=== PATIENT | female | born 1970 | race Caucasian/White ===

== ENCOUNTER → 2016-08-15 | Outpatient (CLI) | payer OTHER ==
[~2016-08-15] MED LIST: ACET-1101 PO; AMBIEN PO; ASCO100061 PO; CARB200T3 PO; CETITAB27 PO; CYCL10TA6 PO; DIAZ10TA3 PO; FLUT0.0529 NAE; IPRA1AER2 INH; LORA1TAB13 PO; MAGN500T15 PO; METO-157 PO; MULTTAB58 PO; OMEGCAP2 PO; ONDA8TAB12 PO; PANT1TAB48 PO; PARO10TA PO; PARO40TA3 PO; PRAZ2CAP PO; QUET1TAB13 PO; SALI0.6510 NAE
[2016-08-15 12:29] LABS: BASO % 0.3 %; BASO ABS # 0.03 K/uL (0-0.2); COMPLETE YES; EOS % 1.7 %; HEMATOCRIT 40.3 % (37-47); IG% 0.2 %; LYMPH % 25.7 %; LYMPH ABS # 2.24 K/uL (1.2-3.4); MEAN CELL VOLUME 88.6 fL (80-100); MEAN CORPUSCULAR HEMOGLOBIN 30.5 pg (25-34); MEAN CORPUSCULAR HGB CONC 34.5 g/dl (32-36); MEAN PLATELET VOLUME 11.6 fL (7.4-10.4); MONO % 9.6 %; NEUT % 62.5 %; PLATELET COUNT 205 K/uL (130-400); RED BLOOD COUNT 4.55 M/uL (4.2-5.4); WHITE BLOOD COUNT 8.72 K/uL (4.8-10.8)
[2016-08-15 12:51] LABS: ALT/SGPT 33 U/L (12-78); AST/SGOT 24 U/L (15-37); BLOOD UREA NITROGEN 6 mg/dl (7-18); BUN/CREATININE RATIO 7.6 (10-20); CALCIUM 9.3 mg/dl (8.5-10.1); CARBON DIOXIDE 24 mmol/L (21-32); CHLORIDE 106 mmol/L (98-107); CREATININE 0.73 mg/dl (0.60-1.20); GLUCOSE 77 mg/dl (70-99); POTASSIUM 3.9 mmol/L (3.5-5.1); SODIUM 138 mmol/L (136-145)
[2016-08-15 13:02] LABS: ALKALINE PHOSPHATASE 103 U/L (45-117); THYROID STIMULATING HORMONE 0.766 uIu/ml (0.300-4.500)
== END | disposition home or self-care (01) ==
LOC: C.LABBFT 10:08
PROVIDERS: ATTEND Internal Medicine
DX: L29.9 Pruritus, unspecified (principal)

== ENCOUNTER 2017-08-22 17:56 | Emergency (ER) | payer OTHER ==
[~2017-08-22] VITALS: Ht 172.7 cm; Wt 116.8 kg
[~2017-08-22 17:56] MED LIST changes: +PANT1TAB3 PO; -PANT1TAB48 PO
[2017-08-22 17:58] VITALS: TEMP 36.9; Ht 172.7 cm; Wt 116.8 kg
--- NOTE | 2017-08-22 18:54 | EMERGENCY ROOM VISIT NOTE ---
ED Visit Note First contact with patient: 18:09 CHIEF COMPLAINT: Sore throat, head congestion / HISTORY OF PRESENT ILLNESS: This 46-year-old female presents to ER with chief complaint of head congestion and sore throat for the past 2 days. The patient denies any fever, cough or chest tightness. She does admit to some intermittent ear pain. She is taking Sudafed without any relief. The patient states she is concerned because her was recently diagnosed with sinusitis. REVIEW OF SYSTEMS: 6 system review was performed and was negative unless stated otherwise in history of present illness. PMH: The patient is healthy; see chronic problem list SOCIAL HISTORY: Patient lives at home. PHYSICAL EXAM: Vital Signs were reviewed: Reviewed Nurse's notes and agree.. GENERAL: 46-year-old female EMERGENCY COURSE: The patient was evaluated. Rapid strep was negative. Culture is pending. Appears in no acute distress. MENTAL STATUS: Alert, oriented, coherent. EARS: Canals clear. TMs good light reflex, no erythema or fluid level noted. NOSE: Nasal mucosa with moderate erythema engorgement. PHARYNX: Moderate erythema, no edema noted. No exudate noted. Airway is adequate. NECK: Supple, non-tender. No lymphadenopathy noted. LUNGS: Clear to auscultation without wheezes rales or rhonchi. CARDIAC: Regular rate and rhythm without murmur. SKIN: No rashes noted. EMERGENCY COURSE the patient was evaluated. Rapid strep was negative., Culture is pending. The patient was informed of the findings discharged home in stable condition. DIAGNOSIS: Acute pharyngitis, probably viral URI DISCHARGE INSTRUCTIONS & TREATMENT: Read the pharyngitis (sore throat) instruction sheet. Call for throat test result tomorrow. Ibuprofen for pain and fever every 6 hours. Recommend [id number]-eklgaxb steroid nasal spray such as Nasacort or Flomax. Take as directed on the box. If symptoms persist or worsen , follow-up with your family doctor. Problem List Medical Problems: (1) Ablation Status: Resolved (2) Anxiety Status: Chronic (3) Asthma Status: Chronic (4) Bipolar disorder Status: Chronic (5) Chronic back pain Status: Chronic (6) Fibromyalgia Status: Chronic (7) Migraines Status: Chronic (8) Peptic ulcer disease Status: Chronic (9) Pneumonia Status: Resolved (10) Tubal ligation Status: Resolved Current/Historical Medications Scheduled Ascorbic Acid (Ascorbic Acid), 1,000 MG PO DAILY Carbamazepine (Tegretol), 600 MG PO AMHS Cetirizine/Pseudoephedrine (Zyrtec-D Er 5MG/120MG), 1 TAB PO Q12H Lorazepam (Lorazepam), 1 MG PO QAM Lorazepam (Lorazepam), 2 MG PO HS Magnesium (Magnesium), 1,000 MG PO DAILY Metoclopramide Hcl (Reglan), 10 MG PO ACHS Multiple Vitamin (Multivitamin), 1 TABLET PO DAILY [place]-3 Fatty Acids (Fish Oil), 1,200 MG PO DAILY Pantoprazole (Protonix), 40 MG PO DAILY Paroxetine Hcl (Paxil), 40 MG PO DAILY Paroxetine Hcl (Paxil), 10 MG PO DAILY Prazosin Hcl (Minipress), 2 MG PO DAILY Quetiapine Fumarate (Seroquel), 400 MG PO HS Scheduled PRN Acetaminophen W/ Codeine (Tylenol W/Codeine #3), 1-2 TABLETS PO Q4-6HRS PRN Cyclobenzaprine Hcl (Flexeril), 10 MG PO TID PRN for MUSCLE SPASM Diazepam (Valium), 10 MG PO HS PRN Fluticasone Propionate (Nasal) (Flonase), 2 SPRAYS DARIAN DAILY PRN Ipratropium-Albuterol (Combivent Respimat), 2 PUFFS INH QID PRN for Shortness of Breath Ondansetron Hcl (Zofran), 8 MG PO BID PRN Saline ([place] Nasal [place]), 2 SPRAYS DARIAN UD PRN [Ambien], Unknown Dose PO HS PRN for Sleep Allergies Coded Allergies: Aripiprazole (Verified Allergy, Mild, 09/21/11) Pregabalin (Unverified Allergy, Mild, blurry vision, 05/28/13) Sulfa Drugs (Verified Allergy, Mild, RASH, 09/21/11) Sulfamethoxazole (Verified Allergy, Mild, RASH, 09/21/11) Trimethoprim (Verified Allergy, Mild, RASH, 09/21/11) Ascorbate (Verified Allergy, Unknown, REPORTED ONE-A-DAY VITAMIN, ) Azithromycin (Verified Allergy, Unknown, 09/21/11) Erythromycin (Verified Allergy, Unknown, RXN UNKNOWN,BUT TOLD HER NOT TO TAKE ANYMORE, 09/21/11) PT. CANNOT REMEMBER WHAT HAPPENED BUT REMEMBERS HER MD TELLING HER NOT TO TAKE IT ANYMORE Niacinamide (Verified Allergy, Unknown, REPORTED ONE-A-DAY VITAMIN, 09/20) Pantothenic Acid (Verified Allergy, Unknown, REPORTED ONE-A-DAY VITAMIN , 09/21/11) Penicillins (Verified Allergy, Unknown, 09/21/11) Prednisone (Verified Allergy, Unknown, 09/21/11) Pyridoxine (Verified Allergy, Unknown, REPORTED ONE-A-DAY VITAMIN, ) Riboflavin (Verified Allergy, Unknown, REPORTED ONE-A-DAY VITAMIN, ) Sulfamethoxazole w/Trimethoprim (Unverified Allergy, Unknown, UNKNOWN, 08/15) Thiamine (Verified Allergy, Unknown, REPORTED ONE-A-DAY VITAMIN, 09/21/11 ) Vitamin A (Verified Allergy, Unknown, REPORTED ONE-A-DAY VITAMIN, ) Vitamin B12 (Verified Allergy, Unknown, REPORTED ONE-A-DAY VITAMIN, 09/20) Vitamin D (Verified Allergy, Unknown, REPORTED ONE-A-DAY VITAMIN, ) Aspirin (Unverified Adverse Reaction, Mild, upset stomach, 05/28/13) Uncoded Allergies: PENICILLIN (Allergy, Mild, unknown, 05/28/13) CHANTAX (Adverse Reaction, Mild, upset stomach, 05/28/13) NAPROXIN (Adverse Reaction, Mild, upset stomach, 05/28/13) Vital Signs Date Time Temp Pulse Resp B/P (MAP) Pulse Ox O2 Delivery O2 Flow Rate FiO2 08/22/17 17:58 36.9 100 18 195/113 100 Room Air Departure Information Referrals Frankie Sanchez M.D. (PCP) Patient Instructions My [facility]
[2017-08-22 19:17] VITALS: BP 160/99; PULSE 83; O2SAT 97
== END 2017-08-22 19:18 | disposition home or self-care (01) ==
LOC: C.EDB 17:58 → C.EDA 19:18
DX: J02.9 Acute pharyngitis, unspecified (principal); R09.81 Nasal congestion; F31.9 Bipolar disorder, unspecified; Z79.899 Other long term (current) drug therapy; Z88.0 Allergy status to penicillin; Z88.8 Allergy status to other drugs, medicaments and biological substances

== ENCOUNTER 2017-08-31 08:15 | Emergency (ER) | payer OTHER ==
[~2017-08-31] VITALS: Ht 172.7 cm; Wt 113.0 kg
[2017-08-31 08:20] VITALS: TEMP 36.8; Ht 172.7 cm; Wt 113.0 kg
--- NOTE | 2017-08-31 08:37 | EMERGENCY ROOM VISIT NOTE ---
History First contact with patient: 08:27 Chief Complaint: SINUS CONGESTION/PRESSURE Stated Complaint: SINUS PAIN,COUGH History of Present Illness The patient is a 46 year old female who presents to the Emergency Room with complaints of sinus congestion Symptoms ongoing for over a week, and patient feels they have recently worsened. Symptoms include sinus congestion, sinus discharge, post nasal drip, dry chesty cough associated with SOB with cough, facial pain/pressure. Patient continues to smoke up to one pack of cigarettes daily. She has been using Sudafed, NyQuil/DayQuil and Afrin spray for symptom management. She otherwise denies fevers/chills, vision changes, CP, palpitations, abdominal pain, lower extremity swelling or rashes. She is tolerating diet without nausea or vomiting, ambulating without exacerbating symptoms, denies change in exercise tolerance, no orthopnea or PND, and voiding and stooling appropriately. has sinus infection and is also currently antibiotics and steroids. Review of Systems See HPI for pertinent positives and negatives. A total of ten systems were reviewed and were otherwise negative. Past Medical/Surgical History Medical Problems: (1) Ablation (2) Anxiety (3) Asthma (4) Bipolar disorder (5) Chronic back pain (6) Fibromyalgia (7) Migraines (8) Peptic ulcer disease (9) Pneumonia (10) Tubal ligation Emphysema Social History Smoking Status: Current Every Day Smoker (1 ppd) Alcohol Use: none Marital Status: Occupation Status: unemployed Current/Historical Medications Scheduled Doxycycline Monohydrate (Monodox), 100 MG PO Q12H Duloxetine Hcl (Cymbalta), 60 MG PO DAILY Magnesium Oxide (Magnesium), 500 MG PO QAM Multiple Vitamin (Multivitamin), 1 TABLET PO DAILY [place]-3 Fatty Acids (Fish Oil), 1,200 MG PO DAILY Oxcarbazepine (Trileptal), 600 MG PO BID Pantoprazole (Protonix), 40 MG PO BID Paroxetine Hcl (Paxil), 30 MG PO QAM Prazosin Hcl (Minipress), 2 MG PO DAILY Quetiapine Fumarate (Seroquel), 400 MG PO HS Trazodone Hcl (Trazodone), 100 MG PO HS Scheduled PRN Acetaminophen W/ Codeine (Tylenol W/Codeine #3), 1-2 TABLETS PO Q4-6HRS PRN Cyclobenzaprine Hcl (Flexeril), 10 MG PO TID PRN for MUSCLE SPASM Ibuprofen (Motrin), 600 MG PO Q6H PRN for Pain Physical Exam Vital Signs Date Time Temp Pulse Resp B/P (MAP) Pulse Ox O2 Delivery O2 Flow Rate FiO2 08/31/17 09:05 92 20 142/80 98 08/31/17 08:20 36.8 93 18 136/90 98 Room Air Physical Exam GENERAL: alert, well appearing, sitting on chair, no acute distress, non-toxic HEAD: Normocephalic, atraumatic. Diffuse sinus tenderness. EYES: PERRL, EOMI, normal sclera and conjunctiva EARS: Tympanic membranes within normal limits, no indication of effusion or infection. OROPHARYNX: No tonsillar enlargement, no exudate, no erythema. Evidence of post nasal drip. Lips, buccal mucosa, and tongue normal and mucous membranes are dry NECK: Supple, no nuchal rigidity, mild cervical lymphadenopathy L>R, full neck ROM LUNGS: No reproducible chest wall tenderness. Clear to auscultation. Normal chest wall mechanics, good air entry. No crackles, or wheezes HEART: RRR, S1 and S2 normal, no murmurs appreciated ABDOMEN: Soft, non-tender, normo-active bowel sounds, no masses, no rebound or guarding. BACK: Back is symmetrical on inspection, no deformities, no midline tenderness, no CVA tenderness. SKIN: Warm, pink, dry. No erythema, rashes, or bruising. EXTREMITIES: Grossly normal. Moving all 4 limbs, strength 5/5. No pitting edema. Calves non tender. NEURO: Alert, Ox3. No focal deficits. Normal sensorium, cranial nerves II-XII grossly intact, normal speech. PSYCH: Mood and affect appropriate. Medical Decision & Procedures Laboratory Results Test 08/31/17 08:50 Influenza Type A Antigen Neg for Influ A (NEG) Influenza Type B Antigen Neg for Influ B (NEG) Medical Decision Vital signs were reviewed were in acceptable ranges. The patient's medical record was reviewed Additional history was obtained from the patient Clinical examination was consistent with sinusitis. Influenza swabs were negative. Low clinical suspicion for pneumonia. Based on the patients age, coexisting illnesses, exam and lab findings the decision to treat as an outpatient was made. She was prescribed a 10 day course of doxycycline 100mg q12h, given her penicillin allergy. She was also advised to increase PO hydration and use a saline rinse at lease BID. The patient remained stable while under my care and appeared well at the time of discharge. PCP follow up within the next week was advised. Impression Primary Impression: Sinusitis Departure Information Prescriptions Doxycycline Monohydrate (Monodox) 100 Mg Cap 100 MG PO Q12H for 10 Days, #20 CAP Prov: Alka. Bajwa MD 08/31/17 Referrals Frankie Sanchez M.D. (PCP) Patient Instructions My [facility] Resident Tracking Resident Involvement: Resident Care Provided Care Provided: Adult ED Problem Qualifiers Primary Impression: Sinusitis Sinusitis location: unspecified location Chronicity: unspecified Qualified Codes: J32.9 - Chronic sinusitis, unspecified
[2017-08-31] MEDS ORDERED: MAGN250T22 PO (08:53)
[2017-08-31] MEDS ORDERED: IBUP-1450 PO (08:53)
[2017-08-31] MEDS ORDERED: OXCA300T PO (08:53)
[2017-08-31] MEDS ORDERED: DULO60CA44 PO (08:53)
[2017-08-31] MEDS ORDERED: TRAZ100T29 PO (08:53)
[2017-08-31] MEDS ORDERED: PARO30TA PO (08:53)
[2017-08-31] MEDS ORDERED: DOXY100C76 PO (08:55)
[2017-08-31 09:05] VITALS: BP 142/80; PULSE 92; O2SAT 98
--- NOTE | 2017-08-31 09:13 | EMERGENCY ROOM VISIT NOTE ---
ED Visit Note First contact with patient: 08:27 Resident Physician Supervision Note: I was present with Dr. Bajwa during the history and exam. I discussed the case with the resident and agree with the findings and plan as documented in the note. Documented By: Jose Pierre Problem List Medical Problems: (1) Ablation Status: Resolved (2) Anxiety Status: Chronic (3) Asthma Status: Chronic (4) Bipolar disorder Status: Chronic (5) Chronic back pain Status: Chronic (6) Fibromyalgia Status: Chronic (7) Migraines Status: Chronic (8) Peptic ulcer disease Status: Chronic (9) Pneumonia Status: Resolved (10) Tubal ligation Status: Resolved Current/Historical Medications Scheduled Doxycycline Monohydrate (Monodox), 100 MG PO Q12H Duloxetine Hcl (Cymbalta), 60 MG PO DAILY Magnesium Oxide (Magnesium), 500 MG PO QAM Multiple Vitamin (Multivitamin), 1 TABLET PO DAILY [place]-3 Fatty Acids (Fish Oil), 1,200 MG PO DAILY Oxcarbazepine (Trileptal), 600 MG PO BID Pantoprazole (Protonix), 40 MG PO BID Paroxetine Hcl (Paxil), 30 MG PO QAM Prazosin Hcl (Minipress), 2 MG PO DAILY Quetiapine Fumarate (Seroquel), 400 MG PO HS Trazodone Hcl (Trazodone), 100 MG PO HS Scheduled PRN Acetaminophen W/ Codeine (Tylenol W/Codeine #3), 1-2 TABLETS PO Q4-6HRS PRN Cyclobenzaprine Hcl (Flexeril), 10 MG PO TID PRN for MUSCLE SPASM Ibuprofen (Motrin), 600 MG PO Q6H PRN for Pain Allergies Coded Allergies: Aripiprazole (Verified Allergy, Mild, 08/31/17) Pregabalin (Unverified Allergy, Mild, blurry vision, 08/31/17) Sulfa Drugs (Verified Allergy, Mild, RASH, 08/31/17) Sulfamethoxazole (Verified Allergy, Mild, RASH, 08/31/17) Trimethoprim (Verified Allergy, Mild, RASH, 08/31/17) Ascorbate (Verified Allergy, Unknown, REPORTED ONE-A-DAY VITAMIN, ) Azithromycin (Verified Allergy, Unknown, 08/31/17) Erythromycin (Verified Allergy, Unknown, RXN UNKNOWN,BUT MD TOLD HER NOT TO TAKE ANYMORE, 08/31/17) PT. CANNOT REMEMBER WHAT HAPPENED BUT REMEMBERS HER MD TELLING HER NOT TO TAKE IT ANYMORE Niacinamide (Verified Allergy, Unknown, REPORTED ONE-A-DAY VITAMIN, ) Pantothenic Acid (Verified Allergy, Unknown, REPORTED ONE-A-DAY VITAMIN , 08/31/17) Penicillins (Verified Allergy, Unknown, 08/31/17) Prednisone (Verified Allergy, Unknown, 08/31/17) Pyridoxine (Verified Allergy, Unknown, REPORTED ONE-A-DAY VITAMIN, 08/31) Riboflavin (Verified Allergy, Unknown, REPORTED ONE-A-DAY VITAMIN, 08/31) Sulfamethoxazole w/Trimethoprim (Unverified Allergy, Unknown, UNKNOWN, ) Thiamine (Verified Allergy, Unknown, REPORTED ONE-A-DAY VITAMIN, ) Vitamin A (Verified Allergy, Unknown, REPORTED ONE-A-DAY VITAMIN, ) Vitamin B12 (Verified Allergy, Unknown, REPORTED ONE-A-DAY VITAMIN, ) Vitamin D (Verified Allergy, Unknown, REPORTED ONE-A-DAY VITAMIN, ) Aspirin (Unverified Adverse Reaction, Mild, upset stomach, 08/31/17) Uncoded Allergies: PENICILLIN (Allergy, Mild, unknown, 05/28/13) CHANTAX (Adverse Reaction, Mild, upset stomach, 05/28/13) NAPROXIN (Adverse Reaction, Mild, upset stomach, 05/28/13) Vital Signs Date Time Temp Pulse Resp B/P (MAP) Pulse Ox O2 Delivery O2 Flow Rate FiO2 08/31/17 09:05 92 20 142/80 98 08/31/17 08:20 36.8 93 18 136/90 98 Room Air Laboratory Results Test 08/31/17 08:50 Departure Information Impression Primary Impression: Sinusitis Dispostion Home / Self-Care Condition FAIR Prescriptions Doxycycline Monohydrate (Monodox) 100 Mg Cap 100 MG PO Q12H for 10 Days, #20 CAP Prov: Alka. Bajwa MD 08/31/17 Forms WORK / SCHOOL INSTRUCTIONS, HOME CARE DOCUMENTATION FORM, IMPORTANT VISIT INFORMATION Patient Instructions My [facility] Additional Instructions You were seen in the ED today for ongoing sinus congestion. Your vitals were noted to be in an acceptable range. Clinical history and examination are consistent with sinusitis. Upon discharge, we have prescribed a 10 day course of doxycycline to be taken twice a day. Please complete all the medication even if you are feeling well. In addtion we urge you to increase your hydration by drinking more WATER. Symptoms may also improve with a saline rinse of nasal cavities at least twice daily using a [place] pot, for example. Follow up with your PCP within the next week to check on your symptoms is also advisable. You have been examined and treated today on an emergency basis only. This is not a substitute for, or an effort to provide, complete comprehensive medical care. It is impossible to recognize and treat all injuries or illnesses in a single emergency department visit. It is therefore important that you make a follow up with your physician for close monitoring. We urge you to return to ER if similar symptoms return or if you develop worsening or persistent pain, vomiting, headache, fevers, chest pains, difficulty breathing, black or bloody stools, slurred speech, numbness, weakness , visual changes, or as needed. Problem Qualifiers Primary Impression: Sinusitis Sinusitis location: unspecified location Chronicity: unspecified Qualified Codes: J32.9 - Chronic sinusitis, unspecified
[2017-08-31 09:25] LABS: INFLUENZA B ANTIGEN Neg for Influ B (NEG)
== END 2017-08-31 09:07 | disposition home or self-care (01) ==
LOC: C.EDB 08:18
DX: J32.9 Chronic sinusitis, unspecified (principal); F17.210 Nicotine dependence, cigarettes, uncomplicated; F41.9 Anxiety disorder, unspecified; J45.909 Unspecified asthma, uncomplicated; F31.9 Bipolar disorder, unspecified; K27.9 Peptic ulcer, site unspecified, unspecified as acute or chronic, without hemorrhage or perforation; G89.29 Other chronic pain; M54.9 Dorsalgia, unspecified; M79.7 Fibromyalgia; Z87.01 Personal history of pneumonia (recurrent); Z98.51 Tubal ligation status; J43.9 Emphysema, unspecified; Z79.899 Other long term (current) drug therapy; Z88.0 Allergy status to penicillin; Z88.8 Allergy status to other drugs, medicaments and biological substances; Z88.6 Allergy status to analgesic agent

== ENCOUNTER → 2017-09-04 | Outpatient (CLI) | payer OTHER ==
[~2017-09-04] MED LIST changes: -AMBIEN PO; -ASCO100061 PO; -CARB200T3 PO; -CETITAB27 PO; -DIAZ10TA3 PO; +DOXY100C76 PO; +DULO60CA44 PO; -FLUT0.0529 NAE; +IBUP-1450 PO; -IPRA1AER2 INH; -LORA1TAB13 PO; +MAGN250T22 PO; -MAGN500T15 PO; -METO-157 PO; -ONDA8TAB12 PO; +OXCA300T PO; -PARO10TA PO; +PARO30TA PO; -PARO40TA3 PO; -SALI0.6510 NAE; +TRAZ100T29 PO
--- NOTE | 2017-09-05 14:04 | MAMMOGRAPHY REPORT ---
BILATERAL DIGITAL SCREENING MAMMOGRAM TOMOSYNTHESIS WITH CAD: 09/04/2017 CLINICAL HISTORY: Routine screening. Patient has no complaints. TECHNIQUE: Breast tomosynthesis in addition to standard 2D mammography was performed. Current study was also evaluated with a Computer Aided Detection (CAD) system. COMPARISON: 04/04/2016 mammogram performed at [facility]. BREAST COMPOSITION: The tissue of both breasts is almost entirely fatty. FINDINGS: No suspicious mass, architectural distortion or cluster of microcalcifications is seen. IMPRESSION: ACR BI-RADS CATEGORY 1: NEGATIVE There is no mammographic evidence of malignancy. A 1 year screening mammogram is recommended. The pa tient will receive written notification of the results. Approximately 10% of breast cancers are not detected with mammography. A negative mammographic report should not delay biopsy if a clinically suggestive mass is present. Judit Scott M.D. ay/:09/04/2017 16:23:58 Rag Grader: Aniya Palacios, [facility] letter sent: Normal 1/2 BI-RADS Code: ACR BI-RADS Category 1: Negative
== END | disposition home or self-care (01) ==
LOC: C.MAMM 13:36
PROVIDERS: ATTEND Internal Medicine
DX: Z12.31 Encounter for screening mammogram for malignant neoplasm of breast (principal)

== ENCOUNTER → 2017-09-11 | Outpatient (CLI) | payer OTHER ==
[2017-09-11 12:23] LABS: BASO % 0.4 %; BASO ABS # 0.04 K/uL (0-0.2); EOS % 1.4 %; EOS ABS # 0.13 K/uL (0-0.5); HEMATOCRIT 37.3 % (37-47); HEMOGLOBIN 13.2 g/dL (12.0-16.0); IG# 0.02 K/uL (0.00-0.02); LYMPH % 26.3 %; LYMPH ABS # 2.38 K/uL (1.2-3.4); MEAN CELL VOLUME 86.7 fL (80-100); MEAN CORPUSCULAR HEMOGLOBIN 30.7 pg (25-34); MEAN CORPUSCULAR HGB CONC 35.4 g/dl (32-36); MONO % 8.2 %; MONO ABS # 0.74 K/uL (0.11-0.59); NEUT % 63.5 %; NEUT ABS # 5.73 K/uL (1.4-6.5); PLATELET COUNT 247 K/uL (130-400); RED CELL DISTRIBUTION WIDTH CV 13.1 % (11.5-14.5); RED CELL DISTRIBUTION WIDTH SD 41.9 fL (36.4-46.3); WHITE BLOOD COUNT 9.04 K/uL (4.8-10.8)
[2017-09-11 13:08] LABS: ALBUMIN 3.7 gm/dl (3.4-5.0); ALT/SGPT 24 U/L (12-78); AST/SGOT 15 U/L (15-37); BLOOD UREA NITROGEN 6 mg/dl (7-18); CALCIUM 9.2 mg/dl (8.5-10.1); CARBON DIOXIDE 24 mmol/L (21-32); CREATININE 0.69 mg/dl (0.60-1.20); GLUCOSE 93 mg/dl (70-99); POTASSIUM 4.5 mmol/L (3.5-5.1); SODIUM 127 mmol/L (136-145)
[2017-09-11 13:20] LABS: ALKALINE PHOSPHATASE 107 U/L (45-117); CHOLESTEROL 163 mg/dl (0-200); LDL CHOLESTEROL CALCULATED 95 mg/dl; TOTAL PROTEIN 7.3 gm/dl (6.4-8.2)
== END | disposition home or self-care (01) ==
LOC: C.LABBFT 10:55
PROVIDERS: ATTEND Internal Medicine
DX: J44.9 Chronic obstructive pulmonary disease, unspecified (principal); I10 Essential (primary) hypertension

== ENCOUNTER → 2017-09-19 | Outpatient (CLI) | payer OTHER ==
[~2017-09-19] MED LIST changes: -DOXY100C76 PO
[2017-09-19 18:19] LABS: BLOOD UREA NITROGEN 5 mg/dl (7-18); CALCIUM 8.9 mg/dl (8.5-10.1); CARBON DIOXIDE 27 mmol/L (21-32); GLUCOSE 112 mg/dl (70-99); POTASSIUM 4.1 mmol/L (3.5-5.1); SODIUM 130 mmol/L (136-145)
== END | disposition home or self-care (01) ==
LOC: C.LABBFT 15:32
PROVIDERS: ATTEND Internal Medicine
DX: Z00.00 Encounter for general adult medical examination without abnormal findings (principal); E87.1 Hypo-osmolality and hyponatremia

== ENCOUNTER 2017-10-31 13:57 | Emergency (ER) | payer OTHER ==
[~2017-10-31] VITALS: Ht 172.7 cm; Wt 119.8 kg
[2017-10-31 14:01] VITALS: TEMP 36.8; Ht 172.7 cm; Wt 119.8 kg
[2017-10-31 14:59] LABS: BASO % 0.3 %; BASO ABS # 0.03 K/uL (0-0.2); EOS % 2.1 %; EOS ABS # 0.18 K/uL (0-0.5); HEMATOCRIT 38.6 % (37-47); HEMOGLOBIN 13.6 g/dL (12.0-16.0); IG# 0.03 K/uL (0.00-0.02); LYMPH % 30.6 %; LYMPH ABS # 2.68 K/uL (1.2-3.4); MEAN CELL VOLUME 87.3 fL (80-100); MEAN CORPUSCULAR HEMOGLOBIN 30.8 pg (25-34); MEAN CORPUSCULAR HGB CONC 35.2 g/dl (32-36); MEAN PLATELET VOLUME 9.8 fL (7.4-10.4); NEUT % 58.7 %; NEUT ABS # 5.14 K/uL (1.4-6.5); PLATELET COUNT 248 K/uL (130-400); RED CELL DISTRIBUTION WIDTH CV 13.6 % (11.5-14.5); RED CELL DISTRIBUTION WIDTH SD 43.7 fL (36.4-46.3); WHITE BLOOD COUNT 8.76 K/uL (4.8-10.8)
[2017-10-31 15:28] LABS: CREATININE 0.72 mg/dl (0.60-1.20); POTASSIUM 3.7 mmol/L (3.5-5.1)
[2017-10-31 15:32] LABS: TOTAL PROTEIN 7.8 gm/dl (6.4-8.2)
--- NOTE | 2017-10-31 15:45 | DIAGNOSTIC IMAGING REPORT ---
VENOUS DOPPLER LWR EXT BILA HISTORY: Pain. Edema. Lower extremity edema COMPARISON STUDY: None. FINDINGS: There is normal compressibility, flow, and augmentation within the bilateral lower extremity deep venous systems. IMPRESSION: No DVT within the right or left lower extremity. The above report was generated using voice recognition software. It may contain grammatical, syntax or spelling errors. Electronically signed by: Elver Diaz M.D. 10/31/2017 3:43 PM Dictated Date/Time: 10/31/2017 3:43 PM
[2017-10-31 15:50] VITALS: BP 121/74; PULSE 74; O2SAT 96
--- NOTE | 2017-10-31 15:52 | EMERGENCY ROOM VISIT NOTE ---
ED Visit Note First contact with patient: 14:04 The patient was seen and examined with Gustavo Youssef PA-C. I agree with the history, physical and findings. Please see the note for disposition and details.
--- NOTE | 2017-10-31 15:59 | EMERGENCY ROOM VISIT NOTE ---
History First contact with patient: 14:04 Chief Complaint: LEG PAIN,LEG INJURY Stated Complaint: LT LEG PAIN AND SWELLING History of Present Illness The patient is a 47 year old female who presents to the Emergency Room via private vehicle with complaints of "left leg pain and swelling". The patient states that she has been experiencing intermittent swelling in the bilateral legs, with left leg pain from the left hip to the ankle since August 2017. She states that she was informed today by one of the employees at her family doctor's office that she could have a clot in her leg and was recommended to be checked here in the emergency department today. She notes that she did discuss this with her family doctor and notes that it could also be a side effect of her Lamictal. She states that there does not appear to be any exacerbating factor to this. She denies any redness or increased warmth. She states that it is not necessarily worse at the end of the day from standing. She has been trying to prop her feet up at night but it does not seem to help. She denies any dyspnea on exertion, shortness of breath, chest pain, orthopnea. She denies any injury or trauma. Review of Systems A complete 10-point Review of Systems was discussed with the patient, with pertinent positives and negatives listed in the History of Present Illness. All remaining Review of Systems questions can be considered negative unless otherwise specified. Past Medical/Surgical History Medical Problems: (1) Ablation (2) Anxiety (3) Asthma (4) Bipolar disorder (5) Chronic back pain (6) Fibromyalgia (7) Migraines (8) Peptic ulcer disease (9) Pneumonia (10) Tubal ligation Social History Smoking Status: Current Every Day Smoker Alcohol Use: none Marital Status: Occupation Status: unemployed Current/Historical Medications Scheduled Duloxetine Hcl (Cymbalta), 60 MG PO DAILY Magnesium Oxide (Magnesium), 500 MG PO QAM Multiple Vitamin (Multivitamin), 1 TABLET PO DAILY [place]-3 Fatty Acids (Fish Oil), 1,200 MG PO DAILY Oxcarbazepine (Trileptal), 600 MG PO BID Pantoprazole (Protonix), 40 MG PO BID Paroxetine Hcl (Paxil), 30 MG PO QAM Prazosin Hcl (Minipress), 2 MG PO DAILY Quetiapine Fumarate (Seroquel), 400 MG PO HS Trazodone Hcl (Trazodone), 100 MG PO HS Scheduled PRN Acetaminophen W/ Codeine (Tylenol W/Codeine #3), 1-2 TABLETS PO Q4-6HRS PRN Cyclobenzaprine Hcl (Flexeril), 10 MG PO TID PRN for MUSCLE SPASM Ibuprofen (Motrin), 600 MG PO Q6H PRN for Pain Physical Exam Vital Signs Date Time Temp Pulse Resp B/P (MAP) Pulse Ox O2 Delivery O2 Flow Rate FiO2 10/31/17 15:50 74 16 121/74 96 Room Air 10/31/17 14:01 36.8 90 16 153/87 100 Room Air Physical Exam VITAL SIGNS - Vital signs and nursing notes were reviewed. Stable. Hypertensive. GENERAL -47-year-old female appearing her stated age who is in no acute distress. Communicates well with provider and answers questions appropriately. SKIN - Without rashes. No meningeal or petechial rash. The skin overlying the left workable. No edema appreciated. HEAD - NC/AT. EYES - Sclera anicteric. EARS - No deformities of external structures noted on gross examination bilaterally. NOSE - Midline and without cyanosis. No epistaxis or purulent drainage noted. MOUTH/OROPHARYNX - Without perioral cyanosis. LUNGS - Chest wall symmetric without accessory muscle use, intercostals retractions, or central cyanosis. Normal vesicular breath sounds CTA B/L. No wheezes, rales, or rhonchi appreciated. CARDIAC - RRR with S1/S2. No murmur, rubs, or gallops appreciated. EXTREMITIES - No clubbing or peripheral cyanosis. No pretibial edema present. +5 /5 strength noted in UE/LE bilaterally. NEUROLOGIC - Cranial nerves II through XII grossly intact. Sensory intact to light touch throughout. PSYCH - A&O, and cooperates fully with examiner. Pt is very pleasant and interacts well with examiner. Eyes: PERRL Medical Decision & Procedures ER Provider Diagnostic Interpretation: VENOUS DOPPLER LWR EXT BILA HISTORY: Pain. Edema. Lower extremity edema COMPARISON STUDY: None. FINDINGS: There is normal compressibility, flow, and augmentation within the bilateral lower extremity deep venous systems. IMPRESSION: No DVT within the right or left lower extremity. The above report was generated using voice recognition software. It may contain grammatical, syntax or spelling errors. Electronically signed by: Elver Diaz M.D. 10/31/2017 3:43 PM Dictated Date/Time: 10/31/2017 3:43 PM Laboratory Results 10/31/17 14:39 Red Blood Count 4.42, Mean Corpuscular Volume 87.3, Mean Corpuscular Hemoglobin 30.8, Mean Corpuscular Hemoglobin Concent 35.2, Mean Platelet Volume 9.8, Neutrophils (%) (Auto) 58.7, Lymphocytes (%) (Auto) 30.6, Monocytes (%) (Auto) 8.0, Eosinophils (%) (Auto) 2.1, Basophils (%) (Auto) 0.3, Neutrophils # (Auto) 5.14, Lymphocytes # (Auto) 2.68, Monocytes # (Auto) 0.70, Eosinophils # (Auto) 0.18, Basophils # (Auto) 0.03 10/31/17 14:39 Test 10/31/17 14:39 White Blood Count 8.76 K/uL (4.8-10.8) Red Blood Count 4.42 M/uL (4.2-5.4) Hemoglobin 13.6 g/dL (12.0-16.0) Hematocrit 38.6 % (37-47) Mean Corpuscular Volume 87.3 fL (80-100) Mean Corpuscular Hemoglobin 30.8 pg (25-34) Mean Corpuscular Hemoglobin Concent 35.2 g/dl (32-36) Platelet Count 248 K/uL (130-400) Mean Platelet Volume 9.8 fL (7.4-10.4) Neutrophils (%) (Auto) 58.7 % Lymphocytes (%) (Auto) 30.6 % Monocytes (%) (Auto) 8.0 % Eosinophils (%) (Auto) 2.1 % Basophils (%) (Auto) 0.3 % Neutrophils # (Auto) 5.14 K/uL (1.4-6.5) Lymphocytes # (Auto) 2.68 K/uL (1.2-3.4) Monocytes # (Auto) 0.70 K/uL (0.11-0.59) Eosinophils # (Auto) 0.18 K/uL (0-0.5) Basophils # (Auto) 0.03 K/uL (0-0.2) RDW Standard Deviation 43.7 fL (36.4-46.3) RDW Coefficient of Variation 13.6 % (11.5-14.5) Immature Granulocyte % (Auto) 0.3 % Immature Granulocyte # (Auto) 0.03 K/uL (0.00-0.02) Anion Gap 8.0 mmol/L (3-11) Est Creatinine Clear Calc Drug Dose 134.3 ml/min Estimated GFR () 117.2 Estimated GFR (Non- 101.1 BUN/Creatinine Ratio 4.9 (10-20) Calcium Level 9.0 mg/dl (8.5-10.1) Total Bilirubin 0.3 mg/dl (0.2-1) Aspartate Amino Transf (AST/SGOT) 15 U/L (15-37) Alanine Aminotransferase (ALT/SGPT) 23 U/L (12-78) Alkaline Phosphatase 116 U/L (45-117) Pro-B-Type Natriuretic Peptide 137 pg/ml (0-450) Total Protein 7.8 gm/dl (6.4-8.2) Albumin 4.0 gm/dl (3.4-5.0) Globulin 3.8 gm/dl (2.5-4.0) Albumin/Globulin Ratio 1.1 (0.9-2) Medical Decision Patient was seen and evaluated as above in room D4. Review was performed of nursing notes and vital signs. After obtaining a thorough history and physical examination the above work up was performed. She presents to us today with bilateral lower extremity edema that has been intermittent since August. She states that there is also pain in her left hip intermittently from the left thigh to the left foot. She denies any injury or trauma. I did elect to obtain baseline labs, as well as a bilateral ultrasounds of the legs. Ultrasounds are negative for DVT. There is no concerning leukocytosis or anemia. Patient does have hyponatremia which appears to be chronic. She is to follow with her family doctor for this. No evidence of kidney or liver failure. BNP normal. I do not suspect any emergent process. She is to call her family doctor to schedule follow-up. She certainly may be experiencing venous stasis. The patient was educated upon management, had questions answered prior to discharge, and was discharged home in good condition. Blood pressure was found to be elevated. She is to follow with her family doctor regarding today's visit. Medication list reviewed. In the evaluation and treatment of this patient the following differential diagnoses were entertained: DVT, heart failure, malignancy, proximal venous thromboembolism, metabolic abnormality, electrolyte imbalance, among others. Impression Primary Impression: Leg swelling Departure Information Dispostion Home / Self-Care Condition GOOD Referrals Frankie Sanchez M.D. (PCP) Patient Instructions ED Hyponatremia, [facility] Additional Instructions You were seen in the emergency department for leg pain/swelling. At this time there is no evidence of clot. Your sodium/salt level is low. Please discuss this with the family doctor. Please call your family doctor to schedule follow-up. Please return with any new/concerning symptoms.
== END 2017-10-31 16:14 | disposition home or self-care (01) ==
LOC: C.EDB 13:58 → C.EDD 16:14
DX: R60.0 Localized edema (principal); E87.1 Hypo-osmolality and hyponatremia; F41.9 Anxiety disorder, unspecified; F31.9 Bipolar disorder, unspecified; J45.909 Unspecified asthma, uncomplicated; M54.9 Dorsalgia, unspecified; G89.29 Other chronic pain; M79.7 Fibromyalgia; K27.9 Peptic ulcer, site unspecified, unspecified as acute or chronic, without hemorrhage or perforation; F17.200 Nicotine dependence, unspecified, uncomplicated; Z98.51 Tubal ligation status; Z79.899 Other long term (current) drug therapy

== ENCOUNTER 2018-02-09 09:00 | Emergency (ER) | payer OTHER ==
[~2018-02-09] VITALS: Ht 172.7 cm; Wt 118.1 kg
[2018-02-09 09:03] VITALS: TEMP 36.8; Ht 172.7 cm; Wt 118.1 kg
[2018-02-09] MEDS ORDERED: ATV5X PO (09:31)
--- NOTE | 2018-02-09 09:59 | DIAGNOSTIC IMAGING REPORT ---
R KNEE 3 VIEWS CLINICAL HISTORY: Right knee pain/include sunrise view pain COMPARISON: None. DISCUSSION: Mild degenerative change patellofemoral joint. 1 possibly 2 subchondral defect suggesting components of chondromalacia patella. No significant joint effusion. No fracture or dislocation. There is no evidence for soft tissue swelling. 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 No acute bony abnormality. The above report was generated using voice recognition software. It may contain grammatical, syntax or spelling errors. Electronically signed by: Elver Diaz M.D. 02/09/2018 9:58 AM Dictated Date/Time: 02/09/2018 9:57 AM
--- NOTE | 2018-02-09 10:07 | EMERGENCY ROOM VISIT NOTE ---
ED Visit Note First contact with patient: 09:02 CHIEF COMPLAINT: Right knee pain HISTORY OF PRESENT ILLNESS: This 47-year-old female presents to the ER with chief complaint of knee pain for the last 2 days. She noticed some bruising on the top of her knee. She states that she has her knee frequently. She denies any falls. The patient states that the pain has been getting worse. She also admits that it feels like her knee "catches" when she bends her knee. The patient has seen [facility] many years ago for her knees. She states she had some type of injections in her knees at that time. REVIEW OF SYSTEMS: 6 system review was performed and was negative unless stated otherwise in history of present illness. PMH: The patient is healthy; asthma, peptic ulcer disease SOCIAL HISTORY: Patient lives with her . The patient admits to tobacco use but denies any alcohol use. PHYSICAL EXAM: Vital Signs: Were reviewed reviewed Nurse's notes. GENERAL: 47- year-old white female appears in no acute distress. MENTAL STATUS: Alert, oriented, and cooperative. RIGHT KNEE: No gross bony deformity noted. There is some ecchymosis noted over the patella. A joint effusion appreciated. The patient has full range of motion of the knee with a clicking noise mid flexion. No ligament instability noted. EMERGENCY DEPARTMENT COURSE: The patient was evaluated. The patient was offered pain medication but declined. X-ray of the right knee to include sunrise was ordered interpreted by the radiologist and myself. DIAGNOSTICS:R KNEE 3 VIEWS CLINICAL HISTORY: Right knee pain/include sunrise view pain COMPARISON: None. DISCUSSION: Mild degenerative change patellofemoral joint. 1 possibly 2 subchondral defect suggesting components of chondromalacia patella. No significant joint effusion. No fracture or dislocation. There is no evidence for soft tissue swelling. 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 No acute bony abnormality. The above report was generated using voice recognition software. It may contain grammatical, syntax or spelling errors. Electronically signed by: Elver Diaz M.D. The patient was informed of the findings. The patient was discharged home in stable condition. DIAGNOSIS: Chondromalacia right knee DISCHARGE INSTRUCTIONS: Tylenol as needed for pain. Recommend follow-up with [facility] for further evaluation and treatment. Problem List Medical Problems: (1) Ablation Status: Resolved (2) Anxiety Status: Chronic (3) Asthma Status: Chronic (4) Bipolar disorder Status: Chronic (5) Chronic back pain Status: Chronic (6) Fibromyalgia Status: Chronic (7) Migraines Status: Chronic (8) Peptic ulcer disease Status: Chronic (9) Pneumonia Status: Resolved (10) Tubal ligation Status: Resolved Current/Historical Medications Scheduled Duloxetine Hcl (Cymbalta), 60 MG PO DAILY Magnesium Oxide (Magnesium), 500 MG PO QAM Multiple Vitamin (Multivitamin), 1 TABLET PO DAILY [place]-3 Fatty Acids (Fish Oil), 1,200 MG PO DAILY Oxcarbazepine (Trileptal), 600 MG PO BID Pantoprazole (Protonix), 40 MG PO BID Paroxetine Hcl (Paxil), 30 MG PO QAM Prazosin Hcl (Minipress), 2 MG PO DAILY Quetiapine Fumarate (Seroquel), 400 MG PO HS Trazodone Hcl (Trazodone), 100 MG PO HS Scheduled PRN Acetaminophen W/ Codeine (Tylenol W/Codeine #3), 1-2 TABLETS PO Q4-6HRS PRN Cyclobenzaprine Hcl (Flexeril), 10 MG PO TID PRN for MUSCLE SPASM Ibuprofen (Motrin), 600 MG PO Q6H PRN for Pain Lorazepam (Lorazepam), 0.5 MG PO UD PRN for Anxiety Allergies Coded Allergies: Aripiprazole (Verified Allergy, Mild, 02/09/18) Pregabalin (Unverified Allergy, Mild, blurry vision, 02/09/18) Sulfa Drugs (Verified Allergy, Mild, RASH, 02/09/18) Sulfamethoxazole (Verified Allergy, Mild, RASH, 02/09/18) Trimethoprim (Verified Allergy, Mild, RASH, 02/09/18) Ascorbate (Verified Allergy, Unknown, REPORTED ONE-A-DAY VITAMIN, ) Azithromycin (Verified Allergy, Unknown, 02/09/18) Erythromycin (Verified Allergy, Unknown, RXN UNKNOWN,BUT MD TOLD HER NOT TO TAKE ANYMORE, 02/09/18) PT. CANNOT REMEMBER WHAT HAPPENED BUT REMEMBERS HER MD TELLING HER NOT TO TAKE IT ANYMORE Niacinamide (Verified Allergy, Unknown, REPORTED ONE-A-DAY VITAMIN, ) Pantothenic Acid (Verified Allergy, Unknown, REPORTED ONE-A-DAY VITAMIN , 02/09/18) Penicillins (Verified Allergy, Unknown, 02/09/18) Prednisone (Verified Allergy, Unknown, 02/09/18) Pyridoxine (Verified Allergy, Unknown, REPORTED ONE-A-DAY VITAMIN, 02/09) Riboflavin (Verified Allergy, Unknown, REPORTED ONE-A-DAY VITAMIN, 02/09) Sulfamethoxazole w/Trimethoprim (Unverified Allergy, Unknown, UNKNOWN, ) Thiamine (Verified Allergy, Unknown, REPORTED ONE-A-DAY VITAMIN, ) Vitamin A (Verified Allergy, Unknown, REPORTED ONE-A-DAY VITAMIN, ) Vitamin B12 (Verified Allergy, Unknown, REPORTED ONE-A-DAY VITAMIN, ) Vitamin D (Verified Allergy, Unknown, REPORTED ONE-A-DAY VITAMIN, ) Aspirin (Unverified Adverse Reaction, Mild, upset stomach, 02/09/18) Uncoded Allergies: PENICILLIN (Allergy, Mild, unknown, 05/28/13) CHANTAX (Adverse Reaction, Mild, upset stomach, 05/28/13) NAPROXIN (Adverse Reaction, Mild, upset stomach, 05/28/13) Vital Signs Date Time Temp Pulse Resp B/P (MAP) Pulse Ox O2 Delivery O2 Flow Rate FiO2 02/09/18 09:03 36.8 88 17 188/106 100 Room Air Departure Information Referrals Frankie Sanchez M.D. (PCP) Patient Instructions [facility]
[2018-02-09 10:24] VITALS: BP 166/94; PULSE 16; O2SAT 100
--- NOTE | 2018-02-09 10:32 | EMERGENCY ROOM VISIT NOTE ---
ED Visit Note First contact with patient: 09:02 I have personally seen and evaluated the patient with the physician yard assistant. I agree with the diagnostic/management decisions and have personally been involved in these decisions and agree with the diagnosis.
== END 2018-02-09 10:25 | disposition home or self-care (01) ==
LOC: C.EDB 09:01
DX: M22.41 Chondromalacia patellae, right knee (principal); J45.909 Unspecified asthma, uncomplicated; F31.9 Bipolar disorder, unspecified; F41.9 Anxiety disorder, unspecified; K27.7 Chronic peptic ulcer, site unspecified, without hemorrhage or perforation; Z79.899 Other long term (current) drug therapy; Z88.8 Allergy status to other drugs, medicaments and biological substances; Z88.2 Allergy status to sulfonamides; Z88.0 Allergy status to penicillin

== ENCOUNTER 2019-05-02 13:07 | Inpatient (IN) ==
[2019-05-02] MEDS ORDERED: LEVOFLOXACIN/D5W 750 MG/150 ML BAG IV SCH (13:30)
[2019-05-02] MEDS ORDERED: SODIUM CHLORIDE 0.9% 1000ML 500 ML IV ONE (13:37)
--- NOTE | 2019-05-02 13:37 | Emergency Department Note ---
Entered by Raquel Lake acting as a scribe for History of Present Illness General Chief complaint: Shortness of Breath/Dyspnea Time Seen by Provider: 05/02/19 13:16 Source: patient History of Present Illness Onset (ago): day(s) 3 Location: chest Pain Consistency: + other (persistent) Quality: + other (shortness of breath) Relieved By: + other (Duoneb, solumedrol); not by medication (Zithromax, inhaler) Associated symptoms: + other (tightness in chest, productive cough (dark green phlegm)) The patient is a 48 year old female that is presenting to the Emergency Room with complaints of persistent and worsening shortness of breath secondary to a pneumonia that was diagnosed 3 days ago. The patient reports that she was diagnosed with lower right lobe pneumonia by her PCP following an x-ray. She states that she has had a cough productive of a dark green phlegm. She notes that her chest feels tight and that she is having difficulty breathing. She reports that her symptoms have worsened today. The patient notes that she is taking Zithromax and using an inhaler without relief. EMS notes that the patient received 2 Duoneb treatments as well as Solumedrol on route. The patients nurse states that the patients O2 saturation was 89% on room air upon arrival to the ED. The patient notes that she has a history of COPD. She denies using O2 at home. Home Medications Home Medications Medication Instructions Recorded Confirmed Type lorazepam 0.5 mg tablet 0.5 mg PO DAILY tab 12/24/18 05/02/19 History duloxetine 60 mg capsule,delayed 60 mg PO DAILY #90 cap 02/16/19 05/02/19 Rx release pantoprazole 40 mg tablet,delayed 40 mg PO BID #180 tab 03/12/19 05/02/19 Rx release albuterol sulfate HFA 90 2 puffs INHALATION Q4H PRN #1 gm 03/27/19 05/02/19 History mcg/actuation aerosol inhaler ibuprofen 600 mg tablet 600 mg PO Q6H PRN #60 tab 03/27/19 05/02/19 History magnesium 250 mg tablet 500 mg PO DAILY tab 03/27/19 05/02/19 History multivitamin tablet 1 tab PO DAILY 03/27/19 05/02/19 History omega-3 fatty acids 1,000 mg 1,000 mg PO DAILY 03/27/19 05/02/19 History capsule paroxetine 20 mg tablet 20 mg PO DAILY tab 03/27/19 05/02/19 History prazosin 2 mg capsule 2 mg PO HS cap 03/27/19 05/02/19 History trazodone 100 mg tablet 100 mg PO HS tab 03/27/19 05/02/19 History acetaminophen 300 mg-codeine 30 mg 1 tab PO DAILY PRN #30 tab 04/02/19 05/02/19 Rx tablet cyclobenzaprine 10 mg tablet 10 mg PO TID PRN #90 tab 04/02/19 05/02/19 Rx oxcarbazepine 300 mg tablet See Rx Instructions PO BID PRN tab 04/02/19 05/02/19 History quetiapine 100 mg tablet 100 mg PO .COMPLEX 04/02/19 05/02/19 History quetiapine 400 mg tablet 400 mg PO .COMPLEX 04/02/19 05/02/19 History doxycycline hyclate 100 mg tablet 100 mg PO BID #14 tab 04/29/19 05/02/19 Rx ipratropium-albuterol 0.5 mg-3 3 ml INH QID #15 ml 04/29/19 05/02/19 Rx mg(2.5 mg base)/3 mL nebulization soln Allergies Allergy/AdvReac Type Severity Reaction Status Date / Time aripiprazole Allergy Mild Verified 05/02/19 14:29 pregabalin Allergy Mild blurry Verified 05/02/19 14:29 vision Sulfa (Sulfonamide Allergy Mild RASH Verified 05/02/19 14:29 Antibiotics) Bactrim Allergy Unknown UNKNOWN Unverified 02/09/18 09:30 erythromycin base Allergy Unknown RXN Verified 05/02/19 14:29 UNKNOWN,BUT TOLD HER NOT TO TAKE ANYMORE mivacurium Allergy Unknown Verified 05/02/19 14:29 Penicillins Allergy Unknown Verified 05/02/19 14:29 prednisone Allergy Unknown Verified 05/02/19 14:29 sulfamethoxazole Allergy Unknown UNKNOWN Verified 05/02/19 14:29 trimethoprim Allergy Unknown UNKNOWN Verified 05/02/19 14:29 aspirin AdvReac Mild upset Verified 05/02/19 14:29 stomach naproxen AdvReac Verified 05/02/19 14:29 varenicline [From Chantix] AdvReac Verified 05/02/19 14:29 Past Med/Surg History Medical History Foot fracture, left (Resolved) Yeast infection (Resolved) Surgical History H/O tubal ligation (Resolved) Status post hysteroscopic ablation of endometrium (Resolved) Family History Unknown Diabetes Other Hypertension Social History Preferred Language: Luxembourgish Feels Safe at Home: Yes Smoking Status: Current every day smoker Age Started Using Tobacco: 14 ; packs per day: 1.5 ; Cigarettes Per Day: 30 ; Review of Systems See HPI for pertinent positives & negatives. and A total of 10 systems reviewed and were otherwise negative Physical Exam Vital Signs Vital Signs - 24 hr 05/02/19 12:56 05/02/19 13:15 05/02/19 13:18 Temperature 36.3 C L Temperature Source Oral Sepsis Recent Fever Within 48 Hours No Sepsis New/Unexplained Change in Mental Status No Sepsis Action Taken by Nursing No Action Required Pulse Rate 95 H 98 H 99 H Pulse Rate [Apical] Pulse Rate from SpO2 Sensor 98 H 99 H Pulse Rhythm Regular Regular Pulse Strength Normal Respiratory Rate 33 H 26 H 20 Respiratory Effort / Characteristics Spontaneous Labored Short of Breath SOB on Exertion Respiratory Depth Deep Blood Pressure 148/85 H 148/85 H Blood Pressure [Right Arm] Blood Pressure Mean 106 106 Blood Pressure Mean [Right Arm] Blood Pressure Position Sitting Blood Pressure Position [Right Arm] Pulse Oximetry 97 92 90 Oxygen Delivery Method Nebulizer Nasal Cannula Nasal Cannula Oxygen Flow Rate 13 2 2 05/02/19 13:30 05/02/19 13:31 05/02/19 14:00 Temperature Temperature Source Sepsis Recent Fever Within 48 Hours Sepsis New/Unexplained Change in Mental Status Sepsis Action Taken by Nursing Pulse Rate 96 H 97 H Pulse Rate [Apical] Pulse Rate from SpO2 Sensor 96 H 97 H Pulse Rhythm Pulse Strength Respiratory Rate 19 27 H Respiratory Effort / Characteristics Respiratory Depth Blood Pressure Blood Pressure [Right Arm] Blood Pressure Mean Blood Pressure Mean [Right Arm] Blood Pressure Position Blood Pressure Position [Right Arm] Pulse Oximetry 93 86 L 93 Oxygen Delivery Method Nasal Cannula Room Air Nasal Cannula Oxygen Flow Rate 2 2 05/02/19 14:30 05/02/19 14:52 05/02/19 15:01 Temperature Temperature Source Sepsis Recent Fever Within 48 Hours Sepsis New/Unexplained Change in Mental Status Sepsis Action Taken by Nursing Pulse Rate 100 H Pulse Rate [Apical] 100 H Pulse Rate from SpO2 Sensor 99 H Pulse Rhythm Pulse Strength Respiratory Rate 26 H 20 Respiratory Effort / Characteristics Spontaneous Short of Breath Respiratory Depth Blood Pressure Blood Pressure [Right Arm] 164/78 H Blood Pressure Mean Blood Pressure Mean [Right Arm] 106 Blood Pressure Position Blood Pressure Position [Right Arm] Sitting Pulse Oximetry 93 90 Oxygen Delivery Method Nasal Cannula Room Air Oxygen Flow Rate 2 2.5 CONSTITUTIONAL/VITAL SIGNS: Reviewed / noted above. GENERAL: Non-toxic in appearance. INTEGUMENTARY: Warm, dry, and [place]. HEAD: Normocephalic. EYES: without scleral icterus or trauma. ENT/OROPHARYNX: clear and moist. LYMPHADENOPATHY/NECK: Is supple without lymphadenopathy or meningismus. RESPIRATORY: Rhonchi and scattered wheezes right greater than left. CARDIOVASCULAR: Regular rate and rhythm. GI/ABDOMEN: Soft and nontender. No organomegaly or pulsatile mass. No rebound or guarding. Normal bowel sounds. EXTREMITIES: Warm and well perfused. BACK: No CVA tenderness. NEUROLOGICAL: Intact without focal deficits. PSYCHIATRIC: normal affect. MUSCULOSKELETAL: Normally developed with good muscle tone. Course 1317:The patient was evaluated in room B09. A complete history and physical examination was performed. 1525: I updated the patient on her current lab and imaging results. The patient states that she does not feel comfortable being discharged at this time. 1530: I discussed the patient's case [place] [facility] [place] will evaluate the patient for further management and care. 1535: Upon reevaluation, the patient is resting comfortably. I discussed laboratory and radiographic results with the patient. She verbalized agreement of the treatment plan. The patient will be evaluated for further management and care. Administered Medications Levofloxacin/Dextrose (Levaquin/D5w) 750 mg in 150 mls @ 100 mls/hr IV Q24H MONICA Stop: 05/04/19 13:29 Last Admin: 05/02/19 13:50 Dose: 100 mls/hr Documented by: [id number] Discontinued Medications Albuterol (Duoneb) 3 ml NEB NOW STA Stop: 05/02/19 14:41 Last Admin: 05/02/19 14:49 Dose: 3 ml Documented by: [id number] Sodium Chloride (Nss 1000ml) 500 mls @ 999 mls/hr IV .Q31M ONE Stop: 05/02/19 14:07 Last Infusion: 05/02/19 14:40 Dose: 0 mls/hr Documented by: [id number] Admin: 05/02/19 13:50 Dose: 999 mls/hr Documented by: [id number] Medical Decision Making Differential Diagnosis The differential was considered includes acute myocardial infarction, acute coronary syndrome, myocarditis, pericarditis, pericardial effusions /tamponad, esophageal perforation, pulmonary embolism, pneumonia, pneumothorax, cardiomyopathy, congestive heart, anemia , COPD/asthma exacerbation. Medical Records Attestation: I reviewed the patient's medical records. Home Medications Current Medication List: was personally reviewed by me Laboratory Data Attestation: I reviewed the patient's lab results. Result diagrams: 05/02/19 13:10 05/02/19 13:10 Lab Results 05/02/19 05/02/19 05/02/19 Range/Units 13:10 13:10 13:10 WBC 20.55 H (4.8-10.8) K/uL RBC 4.09 L (4.2-5.4) M/uL Hgb 12.5 (12.0-16.0) g/dL Hct 35.5 L (37-47) % MCV 86.8 (80-100) fL MCH 30.6 (25-34) pg MCHC 35.2 (32-36) g/dL RDW Std Deviation 42.4 (36.4-46.3) fL RDW Coeff of Tisha 13.3 (11.5-14.5) % Plt Count 266 (130-400) K/uL MPV 9.9 (7.4-10.4) fL Immature Gran % (Auto) 1.0 % Neut % (Auto) 80.9 % Lymph % (Auto) 6.8 % Gonzales % (Auto) 10.7 % Eos % (Auto) 0.5 % Baso % (Auto) 0.1 % Immature Gran # (Auto) 0.20 H (0.00-0.02) K/uL Neut # (Auto) 16.61 H (1.4-6.5) K/uL Lymph # (Auto) 1.40 (1.2-3.4) K/uL Gonzales # (Auto) 2.20 H (0.11-0.59) K/uL Eos # (Auto) 0.11 (0-0.5) K/uL Baso # (Auto) 0.03 (0-0.2) K/uL PT 11.7 (9.0-12.0) Seconds INR 1.2 H (0.9-1.1) APTT 34.4 H (21.0-31.0) Seconds PTT Ratio 1.3 Sodium 126 L (136-145) mmol/L Potassium 3.9 (3.5-5.1) mmol/L Chloride 93 L (98-107) mmol/L Carbon Dioxide 25 (21-32) mmol/L Anion Gap 8.0 (3-11) BUN 4 L (7-18) mg/dl Creatinine 0.61 (0.6-1.2) mg/dl Est Cr Clr Drug Dosing 154.9 ml/min Est GFR ( Amer) 126.0 Est GFR (Non-Af Amer) 108.7 BUN/Creatinine Ratio 6.8 L (10-20) Glucose 119 H (70-99) mg/dl Calcium 8.7 (8.5-10.1) mg/dl Total Bilirubin 1.1 H (0.2-1) mg/dl AST 24 (15-37) U/L ALT 24 (12-78) U/L Alkaline Phosphatase 138 H (45-117) U/L Total Protein 7.0 (6.4-8.2) gm/dl Albumin 2.7 L (3.4-5.0) gm/dl Globulin 4.3 H (2.5-4.0) gm/dl Albumin/Globulin Ratio 0.6 L (0.9-2) Imaging Data Radiologist's Impression: Radiology results as stated below per my review and the radiologist's interpretation: XR chest 1V portable CLINICAL HISTORY: Dyspnea dyspnea COMPARISON STUDY: 01/27/2019 FINDINGS: Diffuse right and to a lesser extent left parenchymal infiltrative change. This is in general similar compared to the prior study. Slight improvement of the left hemithorax. IMPRESSION: Bilateral parenchymal infiltrative change slightly improved in the left compared to the prior study. Right-sided findings are similar. The above report was generated using voice recognition software. It may contain grammatical, syntax or spelling errors. Electronically signed by: Elver Diaz M.D. 05/02/2019 1:46 PM ECG Data Attestation: I personally reviewed and interpreted this ECG as follows: Indication: SOB/dyspnea Rate (beats per minute): 96 Rhythm: sinus rhythm Findings: + PVC; no PAC, no ST elevation and no ectopy Blood Pressure Blood Pressure Findings: Elevated blood pressure Blood Pressure Disposition: Referred to patients primary care provider FLORENTIN Narrative This is a 48-year-old female who presents to the ED with a chief complaint of increased shortness of breath. The patient was diagnosed with pneumonia 3 days ago. She states that she was put on Zithromax. She states that she seems of gotten worse since she was diagnosed. She reports increased breathing difficulty. She reports a cough productive of a green sputum. She did not have the sputum today though. She states that she was given a DuoNeb treatment x2 by EMS and some IV Solu-Medrol. Her exam reveals some rhonchi and scattered wheezes right greater than left. Pulse ox was noted to be 89% at its lowest on room air. She does not use home oxygen. She is afebrile. She is slightly hypertensive. The patient's twelve-lead EKG shows a sinus rhythm at a rate of 96 with occasional PVC. Chest x-ray reveals bilateral parenchymal infiltrates which appear slightly improved on the left compared to the previous x-ray. W rashida blood cell count is elevated at 20,000. Sodium is 126 this appears to be chronic. The patient's oxygen saturations on room air was in the 88 to 89% range. She states that she has been worsening. She was given several DuoNeb treatments between EMS and here. She was given IV Solu-Medrol by EMS. The patient was given IV Levaquin. I spoke with the hospitalist about the patient. Because of the worsening clinically as well as hypoxia and elevated white blood cell count and bilateral pneumonia, the patient will be seen in the hospital for further evaluation and care. Impression & Plan Pneumonia, Hypoxia, Weakness Discharge Plan Visit Data Chief Complaint: Shortness of Breath/Dyspnea ED Provider: Jose Guzmán Discharge Problem: Pneumonia, Hypoxia, Weakness Patient Disposition: Being Evaluated by Hospitalist Forms Stand Alone Forms: My [facility] Prescriptions Prescriptions: No Action duloxetine 60 mg capsule,delayed release(DR/EC) 60 mg PO DAILY Qty: 90 RF: 1 pantoprazole 40 mg tablet,delayed release (DR/EC) 40 mg PO BID Qty: 180 RF: 3 doxycycline hyclate 100 mg tablet 100 mg PO BID Qty: 14 RF: 0 ipratropium-albuterol 0.5 mg-3 mg(2.5 mg base)/3 mL solution for nebulization 3 ml INH QID Qty: 15 RF: 2 omega-3 fatty acids [Fish Oil Concentrate] 1,000 mg capsule 1,000 mg PO DAILY RF: 0 magnesium 250 mg tablet 500 mg PO DAILY RF: 0 multivitamin tablet 1 tab PO DAILY RF: 0 paroxetine HCl 20 mg tablet 20 mg PO DAILY RF: 0 albuterol sulfate 90 mcg/actuation HFA aerosol inhaler 2 puffs inhalation Q4H PRN (Reason: Shortness Of Breath) Qty: 1 RF: 0 quetiapine 400 mg tablet 400 mg PO .COMPLEX RF: 0 quetiapine 100 mg tablet 100 mg PO .COMPLEX RF: 0 cyclobenzaprine 10 mg tablet 10 mg PO TID PRN (Reason: muscle spasm) Qty: 90 RF: 0 acetaminophen-codeine 300-30 mg tablet 1 tab PO DAILY PRN (Reason: pain) Qty: 30 RF: 0 lorazepam 0.5 mg tablet 0.5 mg PO DAILY RF: 0 ibuprofen 600 mg tablet 600 mg PO Q6H PRN (Reason: Pain) Qty: 60 RF: 0 prazosin 2 mg capsule 2 mg PO HS RF: 0 trazodone 100 mg tablet 100 mg PO HS RF: 0 oxcarbazepine 300 mg tablet See Patient Comments PO BID PRN (Reason: Insomnia) RF: 0 Referrals Referrals: Frankie Sanchez III, MD [Primary Care Provider] - Discharge Problem: Pneumonia Qualifiers: Pneumonia type: due to unspecified organism Laterality: bilateral Lung location: lower lobe of lung Qualified Code(s): J18.1 - Lobar pneumonia, unspecified organism The scribe's documentation has been prepared under my direction and personally reviewed by me in its entirety. I confirm that the note above accurately reflects all work, treatment, procedures, and medical decision making performed by me.
[2019-05-02 13:43] LABS: Basophils # (auto) 0.03 K/uL (0-0.2); Basophils % (auto) 0.1 %; Eosinophils # (auto) 0.11 K/uL (0-0.5); Eosinophils % (auto) 0.5 %; Hematocrit (blood only) 35.5 % (37-47); Hemoglobin 12.5 g/dL (12.0-16.0); Lymphocytes % (auto) 6.8 %; Mean Corpuscular Hemoglobin 30.6 pg (25-34); Mean Corpuscular Hgb Conc 35.2 g/dL (32-36); Mean Corpuscular Volume 86.8 fL (80-100); Mean Platelet Volume 9.9 fL (7.4-10.4); Monocytes % (auto) 10.7 %; Neutrophils # (auto) 16.61 K/uL (1.4-6.5); Neutrophils % (auto) 80.9 %; Platelet Count 266 K/uL (130-400); RDW Coefficient of Variation 13.3 % (11.5-14.5); RDW Standard Deviation 42.4 fL (36.4-46.3); Red Blood Count 4.09 M/uL (4.2-5.4); White Blood Count 20.55 K/uL (4.8-10.8)
--- NOTE | 2019-05-02 13:47 | XRay Report ---
XR chest 1V portable CLINICAL HISTORY: Dyspnea dyspnea COMPARISON STUDY: 01/27/2019 FINDINGS: Diffuse right and to a lesser extent left parenchymal infiltrative change. This is in gener al similar compared to the prior study. Slight improvement of the left hemithorax. IMPRESSION: Bilateral parenchymal infiltrative change slightly improved in the left compared to the prior study. Right-sided findings are similar. The above report was generated using voice recognition software. It may contain grammatical, syntax or spelling errors. Electronically signed by: Elver Diaz M.D. 05/02/2019 1:46 PM
[2019-05-02 13:50] LABS: Albumin Level 2.7 gm/dl (3.4-5.0); BUN Creatinine Ratio 6.8 (10-20); Calcium 8.7 mg/dl (8.5-10.1); Creatinine Clr Calc Pharmacy 154.9 ml/min; Est GFR (Non-African American) 108.7; Potassium 3.9 mmol/L (3.5-5.1)
[2019-05-02 13:51] LABS: INR 1.2 (0.9-1.1); Partial Thromboplastin Ratio 1.3; Partial Thromboplastin Time 34.4 Seconds (21.0-31.0); Prothrombin Time 11.7 Seconds (9.0-12.0)
[2019-05-02 13:53] LABS: Albumin Globulin Ratio 0.6 (0.9-2); Bilirubin,Total 1.1 mg/dl (0.2-1); Globulin 4.3 gm/dl (2.5-4.0)
[2019-05-02] MEDS ORDERED: ALBUT/IPRATROP 3MG/0.5MG NEB 3 ML VIAL NEB STA (14:40)
[2019-05-02 16:14] LABS: Appearance Urine Slightly Cloudy (Clear); Bilirubin Urine Negative (Negative); Blood Urine Trace (Negative); Color Urine Yellow; Glucose Urine UA Negative (Negative); Ketones Urine Trace (Negative); Leukocyte Esterase Urine Negative (Negative); Nitrite Urine Negative (Negative); Protein Urine 1+ (Negative); Specific Gravity Urine 1.015 (1.000-1.030); Urobilinogen Urine Negative (Negative)
--- NOTE | 2019-05-02 16:18 | History & Physical Report ---
Date of Service May 02, 2019 Assessment & Plan (1) Bilateral pneumonia: Patient started on Levaquin. Continue Zithromax. (2) Hypoxia: NC oxygen to be titrated to keep pulse ox more than 92%. (3) Hypertension: Continue home medication. Add IV hydralazine PRN basis uncontrolled hypertension, systolic blood pressure more than 170. (4) Fibromyalgia: Continue home medications (5) Dyslipidemia: (6) Depression: (7) Chronic prescription opiate use: (8) Chronic obstructive pulmonary disease: Consult pulmonary. Add IV steroids. DuoNeb breathing treatment per protocol. (9) Bipolar affective disorder: (10) Anxiety: (11) Chronic back pain: (12) Tobacco abuse disorder: Smoking cessation advised. Does not want to use nicotine patch. (13) Leucocytosis: Secondary to bilateral pneumonia, repeat labs in a.m. (14) Dyspnea: Patient was started on Levaquin in the ER. Continue the same. She is also on Zithromax, continue the same. Add IV Solu-Medrol. Consult corrections lieutenant. Consult infectious disease. Home medications list reconciled. Nasal cannula oxygen to titrate to keep pulse ox more than 92%. Add subcu heparin for DVT prophylaxis. Repeat labs in a.m. History of chronic hyponatremia. Monitor sodium levels closely. May need further work-up if does not improve. CODE STATUS full code. History of Present Illness Chief Complaint: Shortness of breath Primary Care Provider: Frankie Sanchez MD The patient is 48-year-old female who has not been feeling well for last 7 days. Her symptoms started with sinus complaints and cough and cold and gradually got worse. She was seen by her family physician 3 days back and diagnosed with bilateral pneumonia and started on oral Zithromax. Despite being on oral Zithromax her symptoms have been progressing. She has increasing cough with sputum and chills and rigors and progressive dyspnea. She was given DuoNeb breathing treatment by the EMT and also received IV Solu-Medrol en route. She is 89% on room air on arrival to the ED. The blood labs show whi te count of 20.5. She has history of COPD and chronic tobacco abuse. In the ED today she was started on IV Levaquin. She will be admitted for further evaluation and management. Allergies Allergy/AdvReac Type Severity Reaction Status Date / Time aripiprazole Allergy Mild Verified 05/02/19 14:29 pregabalin Allergy Mild blurry Verified 05/02/19 14:29 vision Sulfa (Sulfonamide Allergy Mild RASH Verified 05/02/19 14:29 Antibiotics) Bactrim Allergy Unknown UNKNOWN Unverified 02/09/18 09:30 erythromycin base Allergy Unknown RXN Verified 05/02/19 14:29 UNKNOWN,BUT MD TOLD HER NOT TO TAKE ANYMORE mivacurium Allergy Unknown Verified 05/02/19 14:29 Penicillins Allergy Unknown Verified 05/02/19 14:29 prednisone Allergy Unknown Verified 05/02/19 14:29 sulfamethoxazole Allergy Unknown UNKNOWN Verified 05/02/19 14:29 trimethoprim Allergy Unknown UNKNOWN Verified 05/02/19 14:29 aspirin AdvReac Mild upset Verified 05/02/19 14:29 stomach naproxen AdvReac Verified 05/02/19 14:29 varenicline [From Chantix] AdvReac Verified 05/02/19 14:29 Home Medications Home Medications Medication Instructions Recorded Confirmed Type lorazepam 0.5 mg tablet 0.5 mg PO DAILY tab 12/24/18 05/02/19 History duloxetine 60 mg capsule,delayed 60 mg PO DAILY #90 cap 02/16/19 05/02/19 Rx release pantoprazole 40 mg tablet,delayed 40 mg PO BID #180 tab 03/12/19 05/02/19 Rx release albuterol sulfate HFA 90 2 puffs INHALATION Q4H PRN #1 gm 03/27/19 05/02/19 History mcg/actuation aerosol inhaler ibuprofen 600 mg tablet 600 mg PO Q6H PRN #60 tab 03/27/19 05/02/19 History magnesium 250 mg tablet 500 mg PO DAILY tab 03/27/19 05/02/19 History multivitamin tablet 1 tab PO DAILY 03/27/19 05/02/19 History omega-3 fatty acids 1,000 mg 1,000 mg PO DAILY 03/27/19 05/02/19 History capsule paroxetine 20 mg tablet 20 mg PO DAILY tab 03/27/19 05/02/19 History prazosin 2 mg capsule 2 mg PO HS cap 03/27/19 05/02/19 History trazodone 100 mg tablet 100 mg PO HS tab 03/27/19 05/02/19 History acetaminophen 300 mg-codeine 30 mg 1 tab PO DAILY PRN #30 tab 04/02/19 05/02/19 Rx tablet cyclobenzaprine 10 mg tablet 10 mg PO TID PRN #90 tab 04/02/19 05/02/19 Rx oxcarbazepine 300 mg tablet See Rx Instructions PO BID PRN tab 04/02/19 05/02/19 History quetiapine 100 mg tablet 100 mg PO .COMPLEX 04/02/19 05/02/19 History quetiapine 400 mg tablet 400 mg PO .COMPLEX 04/02/19 05/02/19 History doxycycline hyclate 100 mg tablet 100 mg PO BID #14 tab 04/29/19 05/02/19 Rx ipratropium-albuterol 0.5 mg-3 3 ml INH QID #15 ml 04/29/19 05/02/19 Rx mg(2.5 mg base)/3 mL nebulization soln Past Med/Surg History Medical History Foot fracture, left (Resolved) Yeast infection (Resolved) Surgical History H/O tubal ligation (Resolved) Status post hysteroscopic ablation of endometrium (Resolved) Family History Unknown Diabetes Other Hypertension Social History Preferred Language: Setswana Feels Safe at Home: Yes Smoking Status: Current every day smoker Age Started Using Tobacco: 14 ; packs per day: 1.5 ; Cigarettes Per Day: 30 ; Review of Systems Review of Systems: All systems reviewed & are unremarkable except as noted in HPI & below Constitutional: + fever, + chills, + sweats, + body aches, + fatigue, + malaise and + weakness Ear, Nose, Mouth, Throat: + nasal congestion, + post nasal drip and + sinus pain/pressure Respiratory: + cough, + chest congestion, + dyspnea and + wheezing Physical Exam Physical Exam: GENERAL : No acute distress EYES: No icterus, gaze conjugate NOSE: No evidence of epistaxis MOUTH: No lesions or candidiasis, mucosa moist NECK: Supple LUNGS: Bilateral rhonchi and wheezing present HEART: Regular, rate controlled ABDOMEN: Soft, NT, ND, BS Present EXTREMITIES: No LE edema, pedal pulses intact NEURO: A&OX3 Results & Data Vital Signs (Past 12 Hours) Vital Signs Temp Pulse Pulse Resp BP BP Pulse Ox 05/02/19 15:01 164/78 H 05/02/19 14:52 100 H 20 90 05/02/19 14:30 100 H 26 H 93 05/02/19 14:00 97 H 27 H 93 05/02/19 13:31 86 L 05/02/19 13:30 96 H 19 93 05/02/19 13:18 99 H 20 90 05/02/19 13:15 98 H 26 H 148/85 H 92 05/02/19 12:56 97.3 F L 95 H 33 H 148/85 H 97 Laboratory Results 05/02/19 13:10 05/02/19 13:10 05/02/19 05/02/19 05/02/19 Range/Units 15:53 13:10 13:10 WBC (4.8-10.8) K/uL RBC (4.2-5.4) M/uL Hgb (12.0-16.0) g/dL Hct (37-47) % MCV (80-100) fL MCH (25-34) pg MCHC (32-36) g/dL RDW Std Deviation (36.4-46.3) fL RDW Coeff of Tisha (11.5-14.5) % Plt Count (130-400) K/uL MPV (7.4-10.4) fL Immature Gran % (Auto) % Neut % (Auto) % Lymph % (Auto) % Ralls % (Auto) % Eos % (Auto) % Baso % (Auto) % Immature Gran # (Auto) (0.00-0.02) K/uL Neut # (Auto) (1.4-6.5) K/uL Lymph # (Auto) (1.2-3.4) K/uL Ralls # (Auto) (0.11-0.59) K/uL Eos # (Auto) (0-0.5) K/uL Baso # (Auto) (0-0.2) K/uL PT 11.7 (9.0-12.0) Seconds INR 1.2 H (0.9-1.1) APTT 34.4 H (21.0-31.0) Seconds PTT Ratio 1.3 Sodium 126 L (136-145) mmol/L Potassium 3.9 (3.5-5.1) mmol/L Chloride 93 L (98-107) mmol/L Carbon Dioxide 25 (21-32) mmol/L Anion Gap 8.0 (3-11) BUN 4 L (7-18) mg/dl Creatinine 0.61 (0.6-1.2) mg/dl Est Cr Clr Drug Dosing 154.9 ml/min Est GFR ( Amer) 126.0 Est GFR (Non-Af Amer) 108.7 BUN/Creatinine Ratio 6.8 L (10-20) Glucose 119 H (70-99) mg/dl Calcium 8.7 (8.5-10.1) mg/dl Total Bilirubin 1.1 H (0.2-1) mg/dl AST 24 (15-37) U/L ALT 24 (12-78) U/L Alkaline Phosphatase 138 H (45-117) U/L Total Protein 7.0 (6.4-8.2) gm/dl Albumin 2.7 L (3.4-5.0) gm/dl Globulin 4.3 H (2.5-4.0) gm/dl Albumin/Globulin Ratio 0.6 L (0.9-2) Urine Color Pending Urine Appearance Pending Urine pH Pending Ur Specific [place] Pending Urine Protein Pending Urine Glucose (UA) Pending Urine Ketones Pending Urine Blood Pending Urine Nitrite Pending Urine Bilirubin Pending Urine Urobilinogen Pending Ur Leukocyte Esterase Pending 05/02/19 Range/Units 13:10 WBC 20.55 H (4.8-10.8) K/uL RBC 4.09 L (4.2-5.4) M/uL Hgb 12.5 (12.0-16.0) g/dL Hct 35.5 L (37-47) % MCV 86.8 (80-100) fL MCH 30.6 (25-34) pg MCHC 35.2 (32-36) g/dL RDW Std Deviation 42.4 (36.4-46.3) fL RDW Coeff of Tisha 13.3 (11.5-14.5) % Plt Count 266 (130-400) K/uL MPV 9.9 (7.4-10.4) fL Immature Gran % (Auto) 1.0 % Neut % (Auto) 80.9 % Lymph % (Auto) 6.8 % Ralls % (Auto) 10.7 % Eos % (Auto) 0.5 % Baso % (Auto) 0.1 % Immature Gran # (Auto) 0.20 H (0.00-0.02) K/uL Neut # (Auto) 16.61 H (1.4-6.5) K/uL Lymph # (Auto) 1.40 (1.2-3.4) K/uL Ralls # (Auto) 2.20 H (0.11-0.59) K/uL Eos # (Auto) 0.11 (0-0.5) K/uL Baso # (Auto) 0.03 (0-0.2) K/uL PT (9.0-12.0) Seconds INR (0.9-1.1) APTT (21.0-31.0) Seconds PTT Ratio Sodium (136-145) mmol/L Potassium (3.5-5.1) mmol/L Chloride (98-107) mmol/L Carbon Dioxide (21-32) mmol/L Anion Gap (3-11) BUN (7-18) mg/dl Creatinine (0.6-1.2) mg/dl Est Cr Clr Drug Dosing ml/min Est GFR ( Amer) Est GFR (Non-Af Amer) BUN/Creatinine Ratio (10-20) Glucose (70-99) mg/dl Calcium (8.5-10.1) mg/dl Total Bilirubin (0.2-1) mg/dl AST (15-37) U/L ALT (12-78) U/L Alkaline Phosphatase (45-117) U/L Total Protein (6.4-8.2) gm/dl Albumin (3.4-5.0) gm/dl Globulin (2.5-4.0) gm/dl Albumin/Globulin Ratio (0.9-2) Urine Color Urine Appearance Urine pH Ur Specific [place] Urine Protein Urine Glucose (UA) Urine Ketones Urine Blood Urine Nitrite Urine Bilirubin Urine Urobilinogen Ur Leukocyte Esterase Diagnostic Findings XR chest 1V portable CLINICAL HISTORY: Dyspnea dyspnea COMPARISON STUDY: 01/27/2019 FINDINGS: Diffuse right and to a lesser extent left parenchymal infiltrative change. This is in general similar compared to the prior study. Slight improvement of the left hemithorax. IMPRESSION: Bilateral parenchymal infiltrative change slightly improved in the left compared to the prior study. Right-sided findings are similar. Code Status & VTE Plan VTE Prophylaxis Plan VTE Prophylaxis will be ordered: Yes PG Care Time/CCT Total # of Minutes Spent Total Time Spent with Patient: Total time spent is greater than 50% in coordina tion of care (as documented) at patient's floor/unit and/or counseling patient:
[2019-05-02] MEDS ORDERED: HydrALAZINE HCL 20 MG/ML VIAL IV ONE (16:23)
[2019-05-02 16:28] LABS: Bacteria Urine 4+ (Negative); Epithelial Cell Urine >30 /lpf (0-5); RBC Urine 0-4 /hpf (0-4); WBC Urine >30 /hpf (0-5)
[2019-05-02] MEDS ORDERED: HydrALAZINE HCL 20 MG/ML VIAL IV PRN (17:15)
[2019-05-02] MEDS ORDERED: POLYETHYLENE (MIRALAX) 17 GM PACK PO PRN (17:15)
[2019-05-02] MEDS ORDERED: ZOLPIDEM TARTRATE 5 MG TAB PO PRN (17:15)
[2019-05-02] MEDS ORDERED: ALUMINUM/MAGNESIUM SUSP 30 ML UDC PO PRN (17:15)
[2019-05-02] MEDS ORDERED: ACETAMINOPHEN W/CODEINE #3 1 TAB PO PRN (17:15)
[2019-05-02] MEDS ORDERED: ALBUT/IPRATROP 3MG/0.5MG NEB 3 ML VIAL INH SCH (17:15)
[2019-05-02] MEDS ORDERED: ACETAMINOPHEN 325 MG TAB PO PRN (17:15)
[2019-05-02] MEDS ORDERED: ONDANSETRON INJ 2 MG/ML 2 ML VIAL IV PRN (17:15)
[2019-05-02] MEDS ORDERED: MAGNESIUM HYDROXIDE SUSP 30 ML UDC PO PRN (17:15)
[2019-05-02] MEDS ORDERED: CYCLOBENZAPRINE HCL 10 MG TAB PO PRN (17:15)
[2019-05-02] MEDS: SODIUM CHLORIDE 0.9% 1000ML 1,000 ML IV SCH (17:38)
[2019-05-02] MEDS ORDERED: AZITHROMYCIN 500 MG in DEXTROSE 5% 250 ML IV SCH (18:00)
[2019-05-02] MEDS: methylPREDNISolone 40 MG in SYRINGE 0 ML IV SCH (18:12)
[2019-05-02] MEDS: ALBUT/IPRATROP 3MG/0.5MG NEB 3 ML VIAL NEB SCH (19:46)
[2019-05-02] MEDS: TRAZODONE HCL 100 MG TAB PO SCH (20:35)
[2019-05-02] MEDS: IBUPROFEN 600 MG TAB PO PRN (20:35)
[2019-05-02] MEDS: PRAZOSIN HCL 1 MG CAP PO SCH (20:36)
[2019-05-02] MEDS: QUETIAPINE FUMARATE 100 MG TABLET PO SCH (20:36)
[2019-05-02] MEDS: QUETIAPINE FUMARATE 200 MG TAB PO SCH (20:36)
[2019-05-02] MEDS: PANTOprazole 40 MG TAB PO SCH (20:36)
[2019-05-02] MEDS: OXcarbazepine 150 MG TABLET PO SCH (20:37)
[2019-05-02] MEDS: HEPARIN SOD 5,000 UNIT/0.5 ML VIAL SQ SCH (20:37)
[2019-05-03] MEDS: methylPREDNISolone 40 MG in SYRINGE 0 ML IV SCH ×3 (01:10→13:51)
[2019-05-03 05:46] LABS: Hematocrit (blood only) 33.6 % (37-47); Hemoglobin 11.9 g/dL (12.0-16.0); Mean Corpuscular Hemoglobin 30.7 pg (25-34); Mean Corpuscular Hgb Conc 35.4 g/dL (32-36); Mean Corpuscular Volume 86.8 fL (80-100); Mean Platelet Volume 9.8 fL (7.4-10.4); Platelet Count 273 K/uL (130-400); RDW Coefficient of Variation 13.4 % (11.5-14.5); RDW Standard Deviation 42.7 fL (36.4-46.3); Red Blood Count 3.87 M/uL (4.2-5.4); White Blood Count 26.09 K/uL (4.8-10.8)
[2019-05-03] MEDS: HEPARIN SOD 5,000 UNIT/0.5 ML VIAL SQ SCH ×2 (05:47→20:41)
[2019-05-03 06:17] LABS: BUN Creatinine Ratio 15.2 (10-20); Creatinine Clr Calc Pharmacy 159.9 ml/min; Est GFR (Non-African American) 108.7; Potassium 4.3 mmol/L (3.5-5.1)
[2019-05-03] MEDS: ALBUT/IPRATROP 3MG/0.5MG NEB 3 ML VIAL NEB SCH ×4 (07:05→19:37)
--- NOTE | 2019-05-03 07:37 | Infectious Disease Consult ---
Date of Consultation May 03, 2019 Assessment & Plan (1) Pneumonia: continue abx, check blood and sputum culture, if able to provide specimen. will check legionella antigen and procalcitonin as well. suspect leukocytosis is multifactorial - infection and steroids. continue supportive care. will follow. History of Present Illness Attending Physician: Faraz Han MD pt admitted with b/l pna. She was seen by her pcp, cxr done on 04/29 b/l infiltrates, given azithro, contined with sob, cough, generalized weakness, came to ER - cxr 05/02 iproved. placed on azithro, levaquin and IV steroids. states her breathing is somewhat better today. Receiving neb treatment on my exam. states she is coughing, but non productive. no cp, no sob, + wheeze. wbc 20 in Er, 26 today. no flu swab done - she did have flu vaccine this year. no abd pain, no n/v/d. no gu symtpoms, UA >30 wbc, >30 ep cells and +4 bacteria. creat 0.6. Allergies Allergy/AdvReac Type Severity Reaction Status Date / Time aripiprazole Allergy Mild Verified 05/02/19 14:29 pregabalin Allergy Mild blurry Verified 05/02/19 14:29 vision Sulfa (Sulfonamide Allergy Mild RASH Verified 05/02/19 14:29 Antibiotics) Bactrim Allergy Unknown UNKNOWN Unverified 02/09/18 09:30 erythromycin base Allergy Unknown RXN Verified 05/02/19 14:29 UNKNOWN,BUT TOLD HER NOT TO TAKE ANYMORE mivacurium Allergy Unknown Verified 05/02/19 14:29 Penicillins Allergy Unknown Verified 05/02/19 14:29 prednisone Allergy Unknown Verified 05/02/19 14:29 sulfamethoxazole Allergy Unknown UNKNOWN Verified 05/02/19 14:29 trimethoprim Allergy Unknown UNKNOWN Verified 05/02/19 14:29 aspirin AdvReac Mild upset Verified 05/02/19 14:29 stomach naproxen AdvReac Verified 05/02/19 14:29 varenicline [From Chantix] AdvReac Verified 05/02/19 14:29 Home Medications Home Medications Medication Instructions Recorded Confirmed Type lorazepam 0.5 mg tablet 0.5 mg PO DAILY tab 12/24/18 05/02/19 History duloxetine 60 mg capsule,delayed 60 mg PO DAILY #90 cap 08/05/19 10/19/19 Rx release pantoprazole 40 mg tablet,delayed 40 mg PO BID #180 tab 03/12/19 05/02/19 Rx release albuterol sulfate HFA 90 2 puffs INHALATION Q4H PRN #1 gm 03/27/19 05/02/19 History mcg/actuation aerosol inhaler ibuprofen 600 mg tablet 600 mg PO Q6H PRN #60 tab 03/27/19 05/02/19 History magnesium 250 mg tablet 500 mg PO DAILY tab 03/27/19 05/02/19 History multivitamin tablet 1 tab PO DAILY 03/27/19 05/02/19 History omega-3 fatty acids 1,000 mg 1,000 mg PO DAILY 03/27/19 05/02/19 History capsule paroxetine 20 mg tablet 20 mg PO DAILY tab 03/27/19 05/02/19 History prazosin 2 mg capsule 2 mg PO HS cap 03/27/19 05/02/19 History trazodone 100 mg tablet 100 mg PO HS tab 03/27/19 05/02/19 History acetaminophen 300 mg-codeine 30 mg 1 tab PO DAILY PRN #30 tab 04/02/19 05/02/19 Rx tablet cyclobenzaprine 10 mg tablet 10 mg PO TID PRN #90 tab 04/02/19 05/02/19 Rx oxcarbazepine 300 mg tablet See Rx Instructions PO BID PRN tab 04/02/1904/14 History quetiapine 100 mg tablet 100 mg PO .COMPLEX 04/02/19 05/02/19 History quetiapine 400 mg tablet 400 mg PO .COMPLEX 04/02/19 05/02/19 History doxycycline hyclate 100 mg tablet 100 mg PO BID #14 tab 04/29/19 05/02/19 Rx ipratropium-albuterol 0.5 mg-3 3 ml INH QID #15 ml 04/29/19 05/02/19 Rx mg(2.5 mg base)/3 mL nebulization soln Patient History Medical History Foot fracture, left (Resolved) Yeast infection (Resolved) Surgical History H/O tubal ligation (Resolved) Status post hysteroscopic ablation of endometrium (Resolved) Family History Unknown Diabetes Other Hypertension Social History Preferred Language: Mongolian Communication Ability: Effective Vending Machine Mechanic Required: No Beliefs That Will Affect Care: None Current Living Situation: Spouse Feels Safe at Home: Yes Smoking Status: Former smoker Tobacco Type: cigarettes ; Age Started Using Tobacco: 14 ; packs per day: 1.5 ; Cigarettes Per Day: 30 ; Second Hand Exposure: No ; Hx Alcohol Use: No Hx Substance Use: No Review of Systems Review of Systems: All systems reviewed & are unremarkable except as noted in HPI & below Physical Exam Constitutional: WD/WN, vitals as above Eyes: PERRL, conjunctivae normal, anicteric sclerae ENMT: external ear and nose normal, oropharynx normal Neck: normal visual inspection Respiratory: normal respiratory effort, lungs clear to auscultation Auscultation: + diminished lung sounds Cardiovascular: RRR, no murmur, no edema Gastrointestinal (Abdomen): normal bowel sounds, soft, nontender, no hepatosplenomegaly Musculoskeletal: no cyanosis or clubbing, extremities motor strength 5/5 Skin: no rashes, warm and dry Psychiatric: A+Ox3, euthymic affect Results & Data Vital Signs (Past 12 Hours) Vital Signs Temp Pulse Resp BP Pulse Ox 05/03/19 03:12 36.6 C 83 16 138/87 93 05/02/19 22:59 36.8 C 90 22 139/78 91 05/02/19 19:49 97 H 20 94 PG Care Time/CCT Total # of Minutes Spent Total Time Spent with Patient: Total time spent is greater than 50% in coordination of care (as documented) at patient's floor/unit and/or counseling patient: (1) Pneumonia Laterality: bilateral Lung location: lower lobe of lung Pneumonia type: due to unspecified organism Qualified Code(s): J18.1 - Lobar pneumonia, unspecified organism
[2019-05-03] MEDS: MULTIVITAMIN TAB PO SCH (08:28)
[2019-05-03] MEDS: PARoxetine HCl 20 MG TAB PO SCH (08:29)
[2019-05-03] MEDS: PANTOprazole 40 MG TAB PO SCH ×2 (08:29→20:40)
[2019-05-03] MEDS: OMEGA-3 (PURIFIED FISH OIL) 1 GM CAP PO SCH (08:29)
[2019-05-03] MEDS: DULOXETINE HCL 60 MG CAP PO SCH (08:29)
[2019-05-03] MEDS: MAGNESIUM OXIDE 400 MG TAB PO SCH (08:29)
[2019-05-03] MEDS: LORazepam 0.5 MG TAB PO SCH (08:29)
[2019-05-03] MEDS: OXcarbazepine 150 MG TABLET PO SCH ×2 (08:31→20:41)
[2019-05-03] MEDS: NYSTATIN SUSP 500,000 U/5 ML UDC PO SCH ×3 (10:47→20:44)
[2019-05-03] MEDS: LEVOFLOXACIN/D5W 750 MG/150 ML BAG IV SCH (13:51)
--- NOTE | 2019-05-03 14:39 | Hospitalist Progress Note ---
Date of Service May 03, 2019 Assessment & Plan (1) Bilateral pneumonia: CXR on 05/02 showed bilateral pneumonia with R>L. It was actually mildly improved from 04/29 radiographically, though the patient reports feeling worse. MRSA swab negative on 05/03. Procalcitonin negative on 05/03. - Continue Levaquin & steroid for severe CAP. - Flu swab - DuoNebs PRN (2) Hyponatremia: Baseline Na appears to be around high 120s. She has been low for >1 year, though more so now. Possibly due to lung disease vs. psychiatric causes? - Fluid restriction - Serum and urine osms and sodium (3) Chronic obstructive pulmonary disease: Doesn't appear she is on any maintenance medications, and I do not see prior PFTs. - As above for pneumonia (4) Hypoxia: Oxygen to be titrated to keep pulse ox more than 92%. (5) Hypertension: BP is 130/75 today. At goal. - Continue home medication. - Add IV hydralazine PRN basis uncontrolled hypertension, systolic blood pressure more than 170. (6) Fibromyalgia: Continue home medications (7) Bipolar affective disorder: - Continue home meds (8) Tobacco abuse disorder: Smoking cessation advised. - Does not want to use nicotine patch. Subjective Feeling much better. Still having some cough, but much less shortness of breath. Reports no fevers/chills, chest pain, abdominal pain, nausea, or vomiting. Physical Exam Constitutional: WD/WN, vitals as above Eyes: EOM intact bilaterally; no conjunctival abnormality ENMT: external ear and nose normal, oropharynx normal Neck: trachea midline, no thyromegaly normal visual inspection Respiratory: normal respiratory effort, lungs clear to auscultation no respiratory distress Cardiovascular: RRR, no murmur, no edema Gastrointestinal (Abdomen): Inspection/Auscultation: abdomen normal to inspection; abdomen not distended Musculoskeletal: no cyanosis or clubbing, extremities motor strength 5/5 Skin: no rashes, warm and dry Neurologic: moves all extremities and awake Psychiatric: Orientation: alert, oriented to person and cooperative Results & Data Vital Signs (Past 12 Hours) Vital Signs Temp Pulse Pulse Resp BP Pulse Ox 05/03/19 11:44 36.8 C 95 H 22 130/76 90 05/03/19 11:01 92 H 20 92 05/03/19 08:50 84 05/03/19 08:20 36.6 C 82 20 138/80 96 05/03/19 07:05 82 20 90 05/03/19 03:12 36.6 C 83 16 138/87 93 PG Care Time/CCT Total # of Minutes Spent Total Time Spent with Patient: Total time spent is greater than 50% in coordination of care (as documented) at patient's floor/unit and/or counseling patient:
[2019-05-03] MEDS: IBUPROFEN 600 MG TAB PO PRN (15:33)
[2019-05-03] MEDS: SODIUM CHLORIDE 0.9% 1000ML 1,000 ML IV SCH (16:17)
[2019-05-03] MEDS: PRAZOSIN HCL 1 MG CAP PO SCH (20:40)
[2019-05-03] MEDS: QUETIAPINE FUMARATE 200 MG TAB PO SCH (20:40)
[2019-05-03] MEDS: QUETIAPINE FUMARATE 100 MG TABLET PO SCH (20:40)
[2019-05-03] MEDS: TRAZODONE HCL 100 MG TAB PO SCH (20:41)
[2019-05-03 22:33] LABS: Influenza A virus by PCR Neg for Influ A (Neg); Influenza B virus by PCR Neg for Influ B (Neg)
[2019-05-04 05:11] LABS: Hematocrit (blood only) 32.5 % (37-47); Hemoglobin 11.8 g/dL (12.0-16.0); Mean Corpuscular Hemoglobin 31.2 pg (25-34); Mean Corpuscular Hgb Conc 36.3 g/dL (32-36); Mean Platelet Volume 9.3 fL (7.4-10.4); Platelet Count 306 K/uL (130-400); RDW Coefficient of Variation 13.6 % (11.5-14.5); Red Blood Count 3.78 M/uL (4.2-5.4); White Blood Count 25.36 K/uL (4.8-10.8)
[2019-05-04 05:42] LABS: Calcium 8.7 mg/dl (8.5-10.1); Est GFR (African American) 135.4; Est GFR (Non-African American) 116.8
[2019-05-04] MEDS: ALBUT/IPRATROP 3MG/0.5MG NEB 3 ML VIAL NEB SCH ×5 (07:27→23:24)
[2019-05-04] MEDS ORDERED: predniSONE 20 MG TAB PO SCH (09:00)
[2019-05-04] MEDS: LORazepam 0.5 MG TAB PO SCH (09:14)
[2019-05-04] MEDS: MULTIVITAMIN TAB PO SCH (09:17)
[2019-05-04] MEDS: MAGNESIUM OXIDE 400 MG TAB PO SCH (09:17)
[2019-05-04] MEDS: HEPARIN SOD 5,000 UNIT/0.5 ML VIAL SQ SCH ×2 (09:17→20:44)
[2019-05-04] MEDS: OMEGA-3 (PURIFIED FISH OIL) 1 GM CAP PO SCH (09:18)
[2019-05-04] MEDS: NYSTATIN SUSP 500,000 U/5 ML UDC PO SCH ×4 (09:18→20:40)
[2019-05-04] MEDS: PARoxetine HCl 20 MG TAB PO SCH (09:18)
[2019-05-04] MEDS: PANTOprazole 40 MG TAB PO SCH ×2 (09:19→20:40)
[2019-05-04] MEDS: OXcarbazepine 150 MG TABLET PO SCH ×2 (09:19→20:42)
[2019-05-04] MEDS: DULOXETINE HCL 60 MG CAP PO SCH (09:19)
[2019-05-04] MEDS: LEVOFLOXACIN/D5W 750 MG/150 ML BAG IV SCH (13:19)
--- NOTE | 2019-05-04 14:31 | Hospitalist Progress Note ---
Date of Service May 04, 2019 Assessment & Plan (1) Acute hypoxemic respiratory failure: Has been treated for community-acquired pneumonia over the last 7+ days without any improvement. Her lung exam showed extensive crackles and poor air movement today. CT chest w/ contrast revealed extensive b/l airspace opacities involving nearly every lobe of each lung. Will cont levaquin IV. Consider broadening for gram negative coverage. D/c prednisone; change back to solumedrol 40mg IV q8h. Add mucinex. Add flutter valve. Add symbicort 2 puffs BID via spacer. Added chest PT twice daily. cont qid nebs. If noninfectious - inflammatory lung disease? Other? Clinical picture not c/w CHF. Spoke with Dr Francis from pulmonary who will consult. May need bronch. In light of worsening status, opportunity for decompensation, etc -- will move patient to telemetry for closer monitoring. (2) Bilateral pneumonia: see discussion above in resp failure (3) Bilateral pulmonary infiltrates on chest x-ray: infectious vs noninfectious etiologies vs CHF vs other CT chest today with extensive airspace disease Her o2 requirement has increased over the last 24 hours as well Appreciate pulmonary consultation Defer additional work-up to pulmonary (4) Hyponatremia: Chronic. Low urine Na c/w solute depletion. High urine osm relative to serum osm, however, is most c/w SIADH. Cont fluid restriction. Consider salt tablet daily. BMP am. (5) Chronic obstructive pulmonary disease: with exacerbation change steroids back to IV. see above in respiratory failure for more information (6) Hypertension: Controlled. Continue home medications. (7) Fibromyalgia: Continue home medications (8) Bipolar affective disorder: continue home meds no cem or hypomania (9) Tobacco abuse disorder: counseled to quit. declining nicoderm (10) DVT prophylaxis: heparin SC extensively updated today on 2 visits moving patient to PCU due to worsening pulmonary status Subjective patient c/o ongoing dyspnea with minimal exertion. ongoing nonproductive cough. does not feel any better than when first admitted (nor any better relative to last week when she was first placed on antibiotics -- was on zpack initially, then changed to doxycycline). no fevers. appetite fair at best. has had sinusitis in the last 1-2 weeks. no recent travel. 1 cat at home. was smoking 1.5 ppd of cigarettes prior to admission. no recent weight loss. dx formally with COPD several years ago - does not follow with any provider. denies vaping. Review of Systems Constitutional: + fatigue and + anorexia; no fever and no chills Cardiovascular: + orthopnea and + paroxysmal nocturnal dyspnea; no chest pain and no edema Gastrointestinal: no abdominal pain, no nausea and no vomiting Physical Exam Constitutional: + acute distress (mild tachypnea ) and + morbidly obese ENMT: Mouth: + oral mucosal abnormality (thrush plaques tongue ) Respiratory: + cough and + tachypneic Auscultation: + crackles (anterior and posterior; all segments; very poor air movement) Cardiovascular: Rate/Rhythm: regular rhythm and + tachycardic Heart Sounds: normal S1 and normal S2; no murmur Vessels: posterior tibial pulses present and dorsalis pedis pulses present; no JVD Extremities: no edema Gastrointestinal (Abdomen): normal bowel sounds, soft, nontender, no hepatosplenomegaly Skin: no rashes, warm and dry Psychiatric: A+Ox3, euthymic affect Results & Data Vital Signs (Past 12 Hours) Vital Signs Temp Pulse Resp BP Pulse Ox 05/04/19 11:22 90 20 94 05/04/19 07:41 37.0 C 94 H 20 128/83 90 05/04/19 07:30 94 H 24 91 Laboratory Results Laboratory Results - last 24 hr 05/03/19 05/03/19 05/03/19 21:45 21:45 21:54 WBC RBC Hgb Hct MCV MCH MCHC RDW Std Deviation RDW Coeff of Tisha Plt Count MPV Sodium Potassium Chloride Carbon Dioxide Anion Gap BUN Creatinine Est Cr Clr Drug Dosing Est GFR ( Amer) Est GFR (Non-Af Amer) BUN/Creatinine Ratio Glucose Calcium Urine Osmolality 720 Ur Random Sodium 9 Influenza Type A (PCR) Neg for Influ A Influenza Type B (PCR) Neg for Influ B 05/04/19 05/04/19 04:51 04:51 WBC 25.36 H RBC 3.78 L Hgb 11.8 L Hct 32.5 L MCV 86.0 MCH 31.2 MCHC 36.3 H RDW Std Deviation 43.0 RDW Coeff of Tisha 13.6 Plt Count 306 MPV 9.3 Sodium 127 L Potassium 4.0 Chloride 95 L Carbon Dioxide 25 Anion Gap 7.0 BUN 9 Creatinine 0.49 L Est Cr Clr Drug Dosing 199.0 Est GFR ( Amer) 135.4 Est GFR (Non-Af Amer) 116.8 BUN/Creatinine Ratio 18.0 Glucose 156 H Calcium 8.7 Urine Osmolality Ur Random Sodium Influenza Type A (PCR) Influenza Type B (PCR) Diagnostic Findings CT chest - IMPRESSION: 1. Near diffuse patchy groundglass airspace opacity seen throughout the lungs. Some of these demonstrate interlobular septal thickening. This is nonspecific could be due to multifocal pneumonia, alveolar proteinosis, hypersensitivity pneumonitis, or possibly sarcoidosis. Pulmonology consultation recommended. 2. Tiny bilateral pleural effusions. 3. Mild mediastinal and bilateral hilar lymphadenopathy. 3-[address] follow-up recommended to ensure resolution. PG Care Time/CCT Total # of Minutes Spent Total Time Spent with Patient: Total time spent is greater than 50% in coordi nation of care (as documented) at patient's floor/unit and/or counseling patient: (1) Bipolar affective disorder Active/Remission status: remission status unspecified Qualified Code(s): F31.9 - Bipolar disorder, unspecified (2) Chronic obstructive pulmonary disease COPD type: COPD with acute exacerbation Qualified Code(s): J44.1 - Chronic obstructive pulmonary disease with (acute) exacerbation (3) Bilateral pneumonia Lung location: unspecified part of lung Pneumonia type: due to unspecified organism Qualified Code(s): J18.9 - Pneumonia, unspecified organism (4) Hypertension Hypertension type: essential hypertension Qualified Code(s): I10 - Essential (primary) hypertension
[2019-05-04] MEDS ORDERED: IOVERSOL 100ml IV PRN (15:18)
--- NOTE | 2019-05-04 15:33 | CT Scan Report ---
CHEST CT WITH CONTRAST CT DOSE: 1143.02 mGy.cm HISTORY: b/l pneumonia, worsening cough/hypoxia TECHNIQUE: Multiaxial CT images of the chest were performed following the intravenous administration of contrast. A dose lowering technique was utilized adhering to the principles of ALARA. COMPARISON: Chest 05/02/2019. Chest CT 03/16/2008. FINDINGS: Small amount of mucoid material within the left mainstem bronchus. No pneumothorax. Tiny bi lateral pleural effusions. Near diffuse patchy groundglass airspace opacities. Some of these demonstr ate associated interlobular septal thickening. No suspicious lytic are blastic osseous lesions. Mild bilateral hilar and mediastinal lymphadenopathy. 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 No evidence for an aortic dissection. The main pulmonary arteries are patent. The h eart is normal in size. No pericardial effusion. Hepatic steatosis. The visualized liver and adrenal glands are unremarkable. Normal esophagus. IMPRESSION: 1. Near diffuse patchy groundglass airspace opacity seen throughout the lungs. Some of these demonstr ate interlobular septal thickening. This is nonspecific could be due to multifocal pneumonia, alveola r proteinosis, hypersensitivity pneumonitis, or possibly sarcoidosis. Pulmonology consultation recomm ended. 2. Tiny bilateral pleural effusions. 3. Mild mediastinal and bilateral hilar lymphadenopathy. 3-[address] follow-up recommended to ensure resolution. Electronically signed by: Jason Saavedra M.D. 05/04/2019 3:32 PM
[2019-05-04] MEDS: guaiFENesin 600 MG TABCR PO SCH ×2 (17:06→20:44)
[2019-05-04] MEDS: methylPREDNISolone 40 MG in SYRINGE 0 ML IV SCH ×2 (17:08→22:25)
[2019-05-04] MEDS: BUDESONIDE/FORMOTEROL FUMARATE 160/4.5 60 PUFFS/INHALER INH SCH ×2 (17:08→20:43)
--- NOTE | 2019-05-04 17:36 | Pulmonary Consultation ---
Date of Consultation May 04, 2019 Assessment & Plan (1) Acute hypoxemic respiratory failure: Patient has evidence of diffuse patchy groundglass opacities bilaterally with some intralobular septal thickening. She has been on 2 outpatient antibiotics with minimal improvement in her symptoms. She is currently on IV Solu-Medrol with no significant improvement. She continues to be hypoxemic. Recommend obtaining an echocardiogram to rule out cardiac issues such as heart failure. We will also check a BNP. Her clinical exam does not suggest overt heart failure. She does not seem to have an overt bacterial infection given her lack of fever and normal procalcitonin. Atypical infection is certainly possible along with viral infection. Atypical causes may be atypical bacteria and fungal in origin as well. She may also have an acute idiopathic interstitial pneumonia. She does have a history of smoking and may have had an acute on chronic presentation of a smoking-related interstitial lung disease such as desquamative interstitial pneumonia or respiratory bronchiolitis inters titial lung disease. I will also send out serologies to look for connective tissue disorders (anti-Nadya, anti-La, anti-Ro, KRISHAN cascade, rheumatoid factor and CK.) I discussed extensively bronchoscopy with the patient and her . They were very hesitant at first. They indicated to me that they are agreeable to a bronchoscopy with the BAL. They do not want a transbronchial biopsy at this ti me given the risk of pneumothorax. They will give me a definitive answer tomorrow whether they would like to proceed with the bronchoscopy. We will tentatively scheduled her for bronchoscopy and I will put her as n.p.o. starting at midnight. Greater than 50% of the time was spent [id number] with the patient counseling her on her CT chest findings, bronchoscopy and diagnostic/therapeutic options. (2) Bilateral pulmonary infiltrates on chest x-ray: (3) Non-productive cough: History of Present Illness Reason for Consultation: Bilateral infiltrates and hypoxemia Requesting Physician: Dr. Alcocer Attending Physician: Jaden Marshall History of Present Illness This is a 48-year-old female with a past medical history of morbid obesity, hypertension, tobacco abuse, insomnia, bipolar disorder, fibromyalgia, anxiety and gastric reflux who presented to the hospital on 05/02/2019 for worsening shortness of breath and cough. Patient notes that on 04/25/2019 she began having a sinus infection. She was having sore throat, congestion and cough. She notes periods of occasional epistaxis due to "dryness". Subsequently, this past Saturday she started developing shortness of breath with more cough that was initially mildly productive but now is mostly dry. She says that she has been on 2 different antibiotics as an outpatient with minimal improvement in her symptoms. She went to the emergency department on 04/26/2019 and was given azithromycin at that time. She was seen by her primary care on 04/29/2019 who gave her a breathing treatment and began her on doxycycline. Prior to that she was on azithromycin. She also had a chest x-ray done. Chest x-ray on 04/29/2019 demonstrated extensive airspace opacities within the lungs. There is also trace pleural effusion seen. She notes that she has had very minimal improvement in her symptoms. Since being in the hospital she has been on IV Solu-Medrol and was started on levofloxacin. She continues to be hypoxic at times requiring up to 8 L of oxygen. She feels short of breath with walking just a few steps. She notes that her was sick with a sinus infection prior to her being sick. She also describes that she was a smoker up until last week. She has no significant exposure history aside for her who had an upper respiratory illness recently. She has not been outside of [place] recently. She and her live in a [facility]. They have a wall/window air conditioning unit. Her does note that the air conditioning unit appears to be dirty. They do not see any obvious mold. The use oil for heating. Her works as a ambulance mechanic on cars and tires. They have one cat. They deny any carpeting. She is a smoker. She has smoked up to 1.5 packs/day. She has smoked since the age of 15. She describes that she has been told she has COPD. She has an albuterol inhaler at home that she rarely uses. She had a white count of 20,000 on admission. Her white count is now up to 25,000. Her peripheral eosinophil count on 05/02/2019 was 110. Her blood cultures have been negative. Her urine culture was likely contaminated. Procalcitonin on 05/03/2019 was 0.20. Influenza swab was negative. Urine Legionella antigen is pending. Of note, the patient's was present in the room and he is extremely anxious. He is often tearful. He was questioning the need of a bronchoscopy and did not want his to undergo a bronchoscopy with a biopsy. He is agreeable for her to undergo bronchoscopy with a bronchoalveolar lavage. Rosa ent is also agreeable for bronchoscopy with bronchoalveolar lavage. Patient denies any fevers, chills, night sweats. She does have chest pain with deep breathing. She does have a cough as noted above. She denies any rashes or joint aches. She does have fibromyalgia. Allergies Allergy/AdvReac Type Severity Reaction Status Date / Time aripiprazole Allergy Mild Verified 05/02/19 14:29 pregabalin Allergy Mild blurry Verified 05/02/19 14:29 vision Sulfa (Sulfonamide Allergy Mild RASH Verified 05/02/19 14:29 Antibiotics) Bactrim Allergy Unknown UNKNOWN Unverified 02/09/18 09:30 erythromycin base Allergy Unknown RXN Verified 05/02/19 14:29 UNKNOWN,BUT TOLD HER NOT TO TAKE ANYMORE mivacurium Allergy Unknown Verified 05/02/19 14:29 Penicillins Allergy Unknown Verified 05/02/19 14:29 prednisone Allergy Unknown Verified 05/02/19 14:29 sulfamethoxazole Allergy Unknown UNKNOWN Verified 05/02/19 14:29 trimethoprim Allergy Unknown UNKNOWN Verified 05/02/19 14:29 aspirin AdvReac Mild upset Verified 05/02/19 14:29 stomach naproxen AdvReac Verified 05/02/19 14:29 varenicline [From Chantix] AdvReac Verified 05/02/19 14:29 Home Medications Home Medications Medication Instructions Recorded Confirmed Type lorazepam 0.5 mg tablet 0.5 mg PO DAILY tab 12/24/18 05/02/19 History duloxetine 60 mg capsule,delayed 60 mg PO DAILY #90 cap 02/16/19 05/02/19 Rx release pantoprazole 40 mg tablet,delayed 40 mg PO BID #180 tab 03/12/19 05/02/19 Rx release albuterol sulfate HFA 90 2 puffs INHALATION Q4H PRN #1 gm 03/27/19 05/02/19 History mcg/actuation aerosol inhaler ibuprofen 600 mg tablet 600 mg PO Q6H PRN #60 tab 03/27/19 05/02/19 History magnesium 250 mg tablet 500 mg PO DAILY tab 03/27/19 05/02/19 History multivitamin tablet 1 tab PO DAILY 03/27/19 05/02/19 History omega-3 fatty acids 1,000 mg 1,000 mg PO DAILY 03/27/19 05/02/19 History capsule paroxetine 20 mg tablet 20 mg PO DAILY tab 03/27/19 05/02/19 History prazosin 2 mg capsule 2 mg PO HS cap 03/27/19 05/02/19 History trazodone 100 mg tablet 100 mg PO HS tab 03/27/19 05/02/19 History acetaminophen 300 mg-codeine 30 mg 1 tab PO DAILY PRN #30 tab 04/02/19 05/02/19 Rx tablet cyclobenzaprine 10 mg tablet 10 mg PO TID PRN #90 tab 04/02/19 05/02/19 Rx oxcarbazepine 300 mg tablet See Rx Instructions PO BID PRN tab 04/02/19 05/02/19 History quetiapine 100 mg tablet 100 mg PO .COMPLEX 04/02/19 05/02/19 History quetiapine 400 mg tablet 400 mg PO .COMPLEX 04/02/19 05/02/19 History doxycycline hyclate 100 mg tablet 100 mg PO BID #14 tab 04/29/19 05/02/19 Rx ipratropium-albuterol 0.5 mg-3 3 ml INH QID #15 ml 04/29/19 05/02/19 Rx mg(2.5 mg base)/3 mL nebulization soln Patient History Medical History Foot fracture, left (Resolved) Yeast infection (Resolved) Surgical History H/O tubal ligation (Resolved) Status post hysteroscopic ablation of endometrium (Resolved) Family History Unknown Diabetes Other Hypertension Social History Preferred Language: Sudanese Communication Ability: Effective Fire Safety Director Required: No Beliefs That Will Affect Care: None Current Living Situation: Spouse Feels Safe at Home: Yes Smoking Status: Former smoker Tobacco Type: cigarettes ; Age Started Using Tobacco: 14 ; packs per day: 1.5 ; Cigarettes Per Day: 30 ; Second Hand Exposure: No ; Hx Alcohol Use: No Hx Substance Use: No Review of Systems Review of Systems: All systems reviewed & are unremarkable except as noted in HPI & below Physical Exam Constitutional: well developed Patient is obese. Eyes: PERRL, conjunctivae normal, anicteric sclerae ENMT: external ear and nose normal, oropharynx normal Mallampati Class: III Throat: uvula midline There were some plaques noted in the posterior oropharynx. Neck: trachea midline, no thyromegaly normal visual inspection Respiratory: + tachypneic There are mid inspiratory squeaks. Mild expiratory wheeze. Rhonchi diffusely. Cardiovascular: RRR, no murmur, no edema Gastrointestinal (Abdomen): normal bowel sounds, soft, nontender, no hepatosplenomegaly Abdominal striae noted. Musculoskeletal: no cyanosis or clubbing, extremities motor strength 5/5 Skin: no rashes, warm and dry Neurologic: PERRL, EOMI, accommodation nl, no face palsy, no dysarthria Psychiatric: Orientation: alert, oriented x 3 and cooperative Eye Contact: + fair eye contact Affect: + anxious affect Thought Process: goal directed thought process Lymphatic: no cervical or axillary lymphadenopathy Results & Data Vital Signs (Past 12 Hours) Vital Signs Temp Pulse Resp BP BP Pulse Ox 05/04/19 16:09 98.4 F 101 H 16 148/82 H 93 05/04/19 15:42 102 H 24 87 L 05/04/19 11:22 90 20 94 05/04/19 07:41 98.6 F 94 H 20 128/83 90 05/04/19 07:30 94 H 24 91 I personally reviewed the patient's pertinent labs and chest imaging. PG Care Time/CCT Total # of Minutes Spent Total Time Spent with Patient: Total time spent is greater than 50% in coordination of care (as documented) at patient's floor/unit and/or counseling patient:
[2019-05-04 18:32] LABS: Creatine Kinase 44 U/L (26-192); NT Pro B Type Natriuretic Pept 163 pg/ml (0-450)
[2019-05-04] MEDS ORDERED: LORazepam 0.5 MG TAB PO STA ×2 (19:12→19:16)
[2019-05-04] MEDS: TRAZODONE HCL 100 MG TAB PO SCH (20:38)
[2019-05-04] MEDS: QUETIAPINE FUMARATE 200 MG TAB PO SCH (20:41)
[2019-05-04] MEDS: QUETIAPINE FUMARATE 100 MG TABLET PO SCH (20:42)
[2019-05-04] MEDS: PRAZOSIN HCL 1 MG CAP PO SCH (20:43)
--- NOTE | 2019-05-04 23:03 | XRay Report ---
SINGLE VIEW CHEST CLINICAL HISTORY: Dyspnea. FINDINGS: 2 AP, portable, upright chest radiographs are compared to study dated 05/02/2019 and correl ated with chest CT performed the same day 05/04/2019. The examination is degraded by portable techniq ue and patient rotation. The heart is top normal for projection. There is diffuse airspace consolidat ion seen throughout both lungs. No large pleural effusion or pneumothorax is seen. The skeletal struc tures are osteopenic. The bony thorax is grossly intact. IMPRESSION: 1. Diffuse airspace consolidation is again seen throughout both lungs. This is likely unchanged from today's CT scan but appears somewhat worsened from 05/02/2019. 2. No large pleural effusion is identified. Electronically signed by: Henry Gonzalez M.D. 05/04/2019 11:02 PM
[2019-05-04 23:14] LABS: Base Excess VBG 2.1 mEq/L; Oxygen Saturation VBG 79.4 %; pH VBG 7.45 (7.36-7.41)
[2019-05-04] MEDS ORDERED: FUROSEMIDE 20 MG in SYRINGE 0 ML IV ONE (23:15)
[2019-05-05] MEDS: ALBUT/IPRATROP 3MG/0.5MG NEB 3 ML VIAL NEB SCH ×6 (02:52→23:10)
[2019-05-05] MEDS: methylPREDNISolone 40 MG in SYRINGE 0 ML IV SCH (05:26)
[2019-05-05 05:59] LABS: Hematocrit (blood only) 32.5 % (37-47); Hemoglobin 11.4 g/dL (12.0-16.0); Mean Corpuscular Hemoglobin 30.5 pg (25-34); Mean Corpuscular Hgb Conc 35.1 g/dL (32-36); Mean Corpuscular Volume 86.9 fL (80-100); Platelet Count 303 K/uL (130-400); RDW Coefficient of Variation 13.7 % (11.5-14.5); RDW Standard Deviation 43.9 fL (36.4-46.3); Red Blood Count 3.74 M/uL (4.2-5.4); White Blood Count 24.29 K/uL (4.8-10.8)
[2019-05-05] MEDS ORDERED: SODIUM CHLORIDE 0.9% 500 ML IV SCH (06:00)
[2019-05-05] MEDS ORDERED: DEXTROSE 5% 1,000 ML IV SCH (06:00)
[2019-05-05] MEDS ORDERED: OXYMETAZOLINE 0.05% 30 ML BTL NAE SCH (06:00)
[2019-05-05 06:32] LABS: Basophils # (auto) 0.03 K/uL (0-0.2); Basophils % (auto) 0.1 %; Immature Granulocytes # (auto) 0.51 K/uL (0.00-0.02); Immature Granulocytes % (auto) 2.1 %; Lymphocytes # (auto) 1.23 K/uL (1.2-3.4); Lymphocytes % (auto) 5.1 %; Monocytes # (auto) 1.41 K/uL (0.11-0.59); Monocytes % (auto) 5.8 %; Neutrophils # (auto) 21.11 K/uL (1.4-6.5); Neutrophils % (auto) 86.9 %; RBC Morphology Unremarkable
[2019-05-05 06:36] LABS: BUN Creatinine Ratio 16.6 (10-20); Calcium 9.1 mg/dl (8.5-10.1); Creatinine Clr Calc Pharmacy 180.3 ml/min; Est GFR (African American) 131.2; Est GFR (Non-African American) 113.2; Magnesium 2.2 mg/dl (1.8-2.4)
[2019-05-05] MEDS ORDERED: PERFLUTREN LIPID MICROSPHERE (DEFINITY) IV ONE (08:08)
[2019-05-05] MEDS: LORazepam 0.5 MG TAB PO SCH (08:15)
[2019-05-05] MEDS: DULOXETINE HCL 60 MG CAP PO SCH (08:17)
[2019-05-05] MEDS: OMEGA-3 (PURIFIED FISH OIL) 1 GM CAP PO SCH (08:17)
[2019-05-05] MEDS: MULTIVITAMIN TAB PO SCH (08:17)
[2019-05-05] MEDS: MAGNESIUM OXIDE 400 MG TAB PO SCH (08:17)
[2019-05-05] MEDS: NYSTATIN SUSP 500,000 U/5 ML UDC PO SCH ×4 (08:17→21:14)
[2019-05-05] MEDS: guaiFENesin 600 MG TABCR PO SCH ×2 (08:17→21:19)
[2019-05-05] MEDS: HEPARIN SOD 5,000 UNIT/0.5 ML VIAL SQ SCH ×2 (08:18→21:23)
[2019-05-05] MEDS: PARoxetine HCl 20 MG TAB PO SCH (08:18)
[2019-05-05] MEDS: OXcarbazepine 150 MG TABLET PO SCH ×2 (08:19→21:18)
[2019-05-05] MEDS: BUDESONIDE/FORMOTEROL FUMARATE 160/4.5 60 PUFFS/INHALER INH SCH ×2 (08:20→21:18)
[2019-05-05] MEDS: PANTOprazole 40 MG TAB PO SCH ×2 (08:20→21:19)
--- NOTE | 2019-05-05 09:14 | Pulmonology Progress Note ---
Date of Service May 05, 2019 Assessment & Plan (1) Acute hypoxemic respiratory failure: Patient continues to require significant amounts of supplemental oxygen. We are pending her serologies. Echo is pending. It does not appear that she is clinically in heart failure at this time. Again the differential remains broad including atypical infections, viral infections and interstitial idiopathic pneumonia. The plan was to perform bronchoscopy today with BAL, however, due to her increased oxygen requirements, we will hold off on this today. Continue the IV Levaquin. Urine Legionella antigen is pending. I have increased her steroids from 40 mg 3 times daily to 80 mg 3 times daily. We will continue to follow along with you. Thank you. (2) Bilateral pulmonary infiltrates on chest x-ray: (3) Non-productive cough: Subjective Patient notes that she feels less short of breath. She denies any chest pain today. She has minimal cough. She was moved to the second floor yesterday due to oxygenation issues. She is on continuous telemetry now. She has required 10 L of oxygen via oxygen mask and is satting in the low 90s. I dropped her to 6 L and she desatted to 88%. I then increased her back to her previous oxygen requirements and she was doing well. Review of Systems Review of Systems: All systems reviewed & are unremarkable except as noted in HPI & below Physical Exam Constitutional: WD/WN, vitals as above Morbidly obese Eyes: PERRL, conjunctivae normal, anicteric sclerae ENMT: external ear and nose normal, oropharynx normal Neck: normal visual inspection Respiratory: Mid inspiratory squeak. Mild bilateral rhonchi. Cardiovascular: RRR, no murmur, no edema Gastrointestinal (Abdomen): normal bowel sounds, soft, nontender, no hepatosplenomegaly Musculoskeletal: no cyanosis or clubbing, extremities motor strength 5/5 Neurologic: CN's II-XI intact bilaterally Psychiatric: A+Ox3, euthymic affect Results & Data Vital Signs (Past 12 Hours) Vital Signs Temp Pulse Resp BP BP Pulse Ox 05/05/19 07:08 81 18 90 05/05/19 07:03 98.4 F 90 22 161/67 H 10 L 05/05/19 04:00 99.0 F 95 H 20 141/66 H 90 05/05/19 02:54 89 20 93 05/04/19 23:56 99.1 F 96 H 24 122/66 94 05/04/19 23:30 95 H 22 95 05/04/19 22:45 96 H 36 H 152/68 H 90 I personally reviewed the patient's pertinent labs and chest imaging. PG Care Time/CCT Total # of Minutes Spent Total Time Spent with Patient: Total time spent is greater than 50% in coordination of care (as documented) at patient's floor/unit and/or counseling patient:
[2019-05-05] MEDS ORDERED: FLUCONAZOLE 100 MG TAB PO ONE (09:18)
--- NOTE | 2019-05-05 09:27 | Hospitalist Progress Note ---
Date of Service May 05, 2019 Assessment & Plan (1) Acute hypoxemic respiratory failure: Ongoing. Has been treated for community-acquired pneumonia over the last 7+ days without any improvement. CT chest w/ extensive b/l airspace opacities. viral? bacterial? non-infectious? (inflammatory lung process?) CHF? Doubt CHF - no clinical improvement s/p lasix overnight. BNP very low. Regardless await echo. Cont levaquin IV. Cont solumedrol 40mg IV q8h. No wean. Cont mucinex, flutter valve, chest PT, duonebs, symbicort 2 puffs BID. SED RATE noted to be >90 - inflammatory lung disease. Awaiting inflammatory w/u (ANCA, etc all pending). Appreciate Dr Francis consult. Bronch was planned for today but canceled. Await additional recs from Dr Francis. Cont supportive care. (2) Bilateral pneumonia: see discussion above in resp failure remains on levaquin in the event there is a bacterial process present (3) Bilateral pulmonary infiltrates on chest x-ray: infectious vs noninfectious etiologies vs CHF vs other CT chest with extensive airspace disease ESR>90 no significant change clinically overnight await echo Defer additional work-up to pulmonary appreciate their assistance (4) Hyponatremia: Chronic. Low urine Na c/w solute depletion. High urine osm relative to serum osm, however, is most c/w SIADH. Cont fluid restriction. Consider salt tablet daily as long as CHF is fully ruled out as etiology for lung issues. BMP am again. (5) Chronic obstructive pulmonary disease: with exacerbation. cont IV steroids - no wean today. see above in respiratory failure for more information. (6) Hypertension: labile but overall control is satisfactory. Continue home medications. (7) Fibromyalgia: Continue home medications (8) Bipolar affective disorder: continue home meds no cem or hypomania (9) Tobacco abuse disorder: counseled to quit. declining nicoderm (10) Candidiasis of mouth and esophagus: Despite several days of nystatin swish there is no improvement. Will treat with diflucan 200mg PO x 1, then 100mg daily for about a week. Cont nystatin swish as well. follow QTc on telemetry carefully. (11) DVT prophylaxis: heparin SC Subjective last pm had worsening hypoxia oxymask O2 increased some repeat cxr obtained - no radiographic changes lasix IV x 1 given - had significant response per her recollection (voided frequently) but no changes in her pulmonary status with such still coughing but nonproductive bronch put on hold for this am per pulmonary tele overnight wnl Review of Systems Constitutional: no fever and no chills Respiratory: + cough, + dyspnea and + wheezing; no pain on inspiration Cardiovascular: no chest pain Gastrointestinal: no abdominal pain, no nausea, no vomiting and no constipation Physical Exam Constitutional: + morbidly obese; no acute distress ENMT: Mouth: + oral mucosal abnormality (thrush plaques tongue - worse today) Respiratory: Auscultation: + crackles (anterior/posterior; all segments; poor air movement - no change from 05/04) Cardiovascular: Rate/Rhythm: regular rate and + tachycardic Heart Sounds: normal S1 and normal S2; no murmur Vessels: posterior tibial pulses present and dorsalis pedis pulses present; no JVD Extremities: no edema Gastrointestinal (Abdomen): normal bowel sounds, soft, nontender, no hepatosplenomegaly Skin: no rashes, warm and dry Psychiatric: A+Ox3, euthymic affect Results & Data Vital Signs (Past 12 Hours) Vital Signs Temp Pulse Resp BP BP Pulse Ox 05/05/19 07:08 81 18 90 05/05/19 07:03 36.9 C 90 22 161/67 H 10 L 05/05/19 04:00 37.2 C 95 H 20 141/66 H 90 05/05/19 02:54 89 20 93 05/04/19 23:56 37.3 C 96 H 24 122/66 94 05/04/19 23:30 95 H 22 95 05/04/19 22:45 96 H 36 H 152/68 H 90 Laboratory Results Laboratory Results - last 24 hr 05/04/19 05/04/19 05/04/19 17:41 17:41 22:56 WBC RBC Hgb Hct MCV MCH MCHC RDW Std Deviation RDW Coeff of Tisha Plt Count MPV Immature Gran % (Auto) Neut % (Auto) Lymph % (Auto) Bracken % (Auto) Eos % (Auto) Baso % (Auto) Immature Gran # (Auto) Neut # (Auto) Lymph # (Auto) Bracken # (Auto) Eos # (Auto) Baso # (Auto) RBC Morphology ESR VBG pH 7.45 H VBG pCO2 39 VBG pO2 44 VBG HCO3 26 VBG O2 Saturation 79.4 VBG Base Excess 2.1 Barometric Pressure 731.8 Sodium Potassium Chloride Carbon Dioxide Anion Gap BUN Creatinine Est Cr Clr Drug Dosing Est GFR ( Amer) Est GFR (Non-Af Amer) BUN/Creatinine Ratio Glucose Calcium Magnesium Total Creatine Kinase 44 NT-Pro-B Natriuret Pep 163 Procalcitonin Rheumatoid Factor Pending KRISHAN Screen Pending ANCA Pending BUSTER-1 Antibody Pending SS-A/Ro Antibody Pending SS-B/La Antibody Pending 05/05/19 05/05/19 05/05/19 05:34 05:34 05:34 WBC 24.29 H RBC 3.74 L Hgb 11.4 L Hct 32.5 L MCV 86.9 MCH 30.5 MCHC 35.1 RDW Std Deviation 43.9 RDW Coeff of Tisha 13.7 Plt Count 303 MPV 9.0 Immature Gran % (Auto) 2.1 Neut % (Auto) 86.9 Lymph % (Auto) 5.1 Bracken % (Auto) 5.8 Eos % (Auto) 0.0 Baso % (Auto) 0.1 Immature Gran # (Auto) 0.51 H Neut # (Auto) 21.11 H Lymph # (Auto) 1.23 Bracken # (Auto) 1.41 H Eos # (Auto) 0.00 Baso # (Auto) 0.03 RBC Morphology Unremarkable ESR > 90 H VBG pH VBG pCO2 VBG pO2 VBG HCO3 VBG O2 Saturation VBG Base Excess Barometric Pressure Sodium 127 L Potassium 4.0 Chloride 95 L Carbon Dioxide 27 Anion Gap 5.0 BUN 9 Creatinine 0.54 L Est Cr Clr Drug Dosing 180.3 Est GFR ( Amer) 131.2 Est GFR (Non-Af Amer) 113.2 BUN/Creatinine Ratio 16.6 Glucose 164 H Calcium 9.1 Magnesium 2.2 Total Creatine Kinase NT-Pro-B Natriuret Pep Procalcitonin Rheumatoid Factor KRISHAN Screen ANCA BUSTER-1 Antibody SS-A/Ro Antibody SS-B/La Antibody 05/05/19 06:58 WBC RBC Hgb Hct MCV MCH MCHC RDW Std Deviation RDW Coeff of Tisha Plt Count MPV Immature Gran % (Auto) Neut % (Auto) Lymph % (Auto) Bracken % (Auto) Eos % (Auto) Baso % (Auto) Immature Gran # (Auto) Neut # (Auto) Lymph # (Auto) Bracken # (Auto) Eos # (Auto) Baso # (Auto) RBC Morphology ESR VBG pH VBG pCO2 VBG pO2 VBG HCO3 VBG O2 Saturation VBG Base Excess Barometric Pressure Sodium Potassium Chloride Carbon Dioxide Anion Gap BUN Creatinine Est Cr Clr Drug Dosing Est GFR ( Amer) Est GFR (Non-Af Amer) BUN/Creatinine Ratio Glucose Calcium Magnesium Total Creatine Kinase NT-Pro-B Natriuret Pep Procalcitonin 0.22 Rheumatoid Factor KRISHAN Screen ANCA BUSTER-1 Antibody SS-A/Ro Antibody SS-B/La Antibody PG Care Time/CCT Total # of Minutes Spent Total Time Spent with Patient: Total time spent is greater than 50% in coordination of care (as documented) at patient's floor/unit and/or counseling patient: (1) Bilateral pneumonia Pneumonia type: due to unspecified organism Lung location: unspecified part of lung Qualified Code(s): J18.9 - Pneumonia, unspecified organism (2) Chronic obstructive pulmonary disease COPD type: unspecified COPD Qualified Code(s): J44.9 - Chronic obstructive pulmonary disease, unspecified (3) Hypertension Hypertension type: essential hypertension Qualified Code(s): I10 - Essential (primary) hypertension (4) Bipolar affective disorder Active/Remission status: remission status unspecified Qualified Code(s): F31.9 - Bipolar disorder, unspecified
[2019-05-05] MEDS: LEVOFLOXACIN/D5W 750 MG/150 ML BAG IV SCH (13:10)
[2019-05-05] MEDS: methylPREDNISolone 80 MG in SYRINGE 0 ML IV SCH ×2 (13:11→21:14)
[2019-05-05] MEDS: PRAZOSIN HCL 1 MG CAP PO SCH (21:16)
[2019-05-05] MEDS: QUETIAPINE FUMARATE 100 MG TABLET PO SCH (21:17)
[2019-05-05] MEDS: QUETIAPINE FUMARATE 200 MG TAB PO SCH (21:17)
[2019-05-05] MEDS: TRAZODONE HCL 100 MG TAB PO SCH (21:19)
[2019-05-06] MEDS: ALBUT/IPRATROP 3MG/0.5MG NEB 3 ML VIAL NEB SCH ×6 (03:45→23:20)
[2019-05-06] MEDS: methylPREDNISolone 80 MG in SYRINGE 0 ML IV SCH ×3 (05:31→20:44)
[2019-05-06 05:58] LABS: Hematocrit (blood only) 30.3 % (37-47); Hemoglobin 10.9 g/dL (12.0-16.0); Mean Corpuscular Hemoglobin 30.9 pg (25-34); Mean Corpuscular Volume 85.8 fL (80-100); Mean Platelet Volume 9.4 fL (7.4-10.4); Platelet Count 338 K/uL (130-400); RDW Coefficient of Variation 13.9 % (11.5-14.5); RDW Standard Deviation 43.2 fL (36.4-46.3); Red Blood Count 3.53 M/uL (4.2-5.4); White Blood Count 26.33 K/uL (4.8-10.8)
[2019-05-06 06:43] LABS: BUN Creatinine Ratio 23.5 (10-20); Calcium 8.9 mg/dl (8.5-10.1); Creatinine Clr Calc Pharmacy 184.8 ml/min; Est GFR (African American) 132.8; Est GFR (Non-African American) 114.6; Potassium 4.5 mmol/L (3.5-5.1)
--- NOTE | 2019-05-06 08:25 | History & Physical Bridge Note ---
Date of Service May 06, 2019 History & Physical Bridge Note I have examined the patient, reviewed the History & Physical and in the interval since the performance of the History & Physical I have noted the following changes of clinical significance: no changes noted
--- NOTE | 2019-05-06 08:26 | Pre Anesthesia Assessment ---
Date of Service May 06, 2019 Pre Sedation Assessment Vital Signs Temp Pulse Pulse Resp BP BP Pulse Ox 05/06/19 07:47 97.5 F L 82 19 129/68 95 05/06/19 07:01 87 18 96 05/06/19 03:08 98.2 F 84 22 164/80 H 96 05/05/19 23:28 98.8 F 89 20 166/71 H 93 05/05/19 23:10 86 20 95 05/05/19 19:54 94 H 20 91 05/05/19 19:24 97.9 F 94 H 20 170/81 H 97 05/05/19 16:00 100 H 05/05/19 15:26 98.4 F 98 H 19 151/62 H 93 05/05/19 14:56 100 H 20 92 05/05/19 11:42 98.4 F 98 H 22 131/74 95 05/05/19 10:56 81 20 95 Pre-Sedation Airway Assessment Smoking Status: Former smoker Mallampati Class: III Notes The planned sedation has been discussed with the patient. Informed Consent was obtained. I have identified the patient, determined the appropriateness of sedation and have assessed the patient immediately prior to the procedure. All medicine(s) and interventions are by my order.
[2019-05-06] MEDS ORDERED: LEVALBUTEROL HCL 1.25 MG/3 ML NEB NEB STA (08:51)
[2019-05-06] MEDS ORDERED: fentaNYL citrate 100 MCG/2 ML VIAL IV ONE (08:51)
[2019-05-06] MEDS ORDERED: MIDAZOLAM HCL 1 MG/ML 2ML VIAL IV STA (08:51)
[2019-05-06] MEDS ORDERED: LIDOCAINE HCL VISCOUS SOLN 2% 15 ML UDC TOP ONE (08:51)
[2019-05-06] MEDS ORDERED: LIDOCAINE HCL 2% (LOCAL) INJ 50 ML VIAL INFIL STA (08:51)
[2019-05-06] MEDS ORDERED: LIDOCAINE 4% INH SOLN 4 ML BTL INFIL STA (08:51)
--- NOTE | 2019-05-06 09:13 | Procedure Note ---
Procedure Note: Bronchoscopy Procedure PREOPERATIVE DIAGNOSIS: Acute hypoxemic respiratory failure with pneumonia POSTOPERATIVE DIAGNOSIS: Acute hypoxemic respiratory failure with pneumonia PROCEDURE PERFORMED: Flexible fiberoptic bronchoscopy with bronchial alveolar lavage from the right middle lobe COMPLICATIONS: None. INDICATION: Evaluate for infectious etiology versus inflammatory etiology PROCEDURE: After obtaining an informed consent, the patient was brought to the Bronchoscopy Suite. The patient had appropriate oxygen, blood pressure, heart rate, and respiratory rate monitoring applied and monitored continuously throughout the procedure. Supplemental oxygen via nasal cannula as per nursing records was applied to the nasopharynx with adequate saturations achieved. Topical anesthesia with nebulized 1% lidocaine was achieved. Subsequent to this, the patient was premedicated with 3 mg mg of midazolam and 150 Mcg of fentanyl. The oropharynx and larynx were well visualized and showed severe erythema with evidence of leukoplakia throughout the epiglottis and vallecula likely secondary to thrush. There was normal vocal cord motion without masses or lesions. Additional topical anesthesia with 1% lidocaine was applied to the trachea and thad. The trachea appeared normal. There was evidence of excessive dynamic airway collapse. The bronchoscope was then advanced through the thad, which was sharp. The scope was then advanced into the right main stem and each segment, subsegement in the right upper lobe, right middle lobe and right lower lobe was visualized. There was significant amounts of mucopurulent secretions noted. There were no other findings including evidence of mass, anatomic distortions, or hemorrhage. The bronchoscope was subsequently withdrawn and advanced into the left mainstem. Again, each segment and subsegment was well visualized. No specific masses or other lesions were identified throughout the tracheobronchial tree on the left. There was significant amounts of mucopurulent secretions noted. The bronchoscope was then wedged in the right middle lobe and bronchoalveolar lavage samples were obtained. 170 ml of saline was instilled and 45 ml of fluid was aspirated back.The bronchoscope was withdrawn and the area was suctioned clear. The bronchoscope was then withdrawn. The patient tolerated the procedure well without evidence of desaturation or complications. Bronchoalveolar lavage samples were sent for cell count, Gram stain and bacterial culture, AFB culture and smear, fungal culture and smear and cytology. Recommendations: She has significant evidence of leukoplakia on her posterior oropharynx which is likely secondary to thrush. We will start her on nystatin swish and swallow. She also has significant mucopurulent secretions bilaterally throughout her airways. We have sent the aspirated fluid for culture, cell count and cytology as noted above. Continue steroids and antibiotics. She does have evidence of excessive dynamic airway collapse and would likely benefit from a repeat sleep study as an outpatient. Sedation started at 8:34 AM and ended at 8:50 AM. Total of 3 mg of Versed and 150 mcg of fentanyl were used
--- NOTE | 2019-05-06 09:13 | Pulmonology Progress Note ---
Date of Service May 06, 2019 Assessment & Plan (1) Acute hypoxemic respiratory failure: We performed a bronchoscopy today that showed bilateral mucopurulent secretions in the bronchial tree. There is evidence of severe thrush in the posterior oropharynx as well. Recommend starting her on fluconazole. I will defer this to the primary team. We have sent the BAL fluid for culture, cytology and cell count. Recommend continuing IV Solu-Medrol and levofloxacin at this time. Echo results reviewed which indicate grade 1 diastolic dysfunction. Again, I do not think the major cause of her respiratory failure is related to heart failure. She does have evidence of excessive dynamic airway collapse on the bronchoscopy and would likely benefit from an outpatient sleep study in the future. She will also need outpatient PFTs in the future when she is out of this acute phase of illness. Smoking cessation is highly advised. Rheumatoid factor, KRISHAN, ANCA, anti-Nadya, anti-Ro and anti-La antibodies are still pending. Her ESR was elevated which is a nonspecific marker. (2) Bilateral pulmonary infiltrates on chest x-ray: (3) Non-productive cough: Subjective Patient notes that she feels better today. She was able to ambulate from her bed to her bathroom/commode. She is requiring 7 L of oxygen today. She denies any chest pain. She does still have a nonproductive cough. No nausea or vomiting. Review of Systems Review of Systems: Unchanged from prior Physical Exam Constitutional: WD/WN, vitals as above well developed Eyes: PERRL, conjunctivae normal, anicteric sclerae ENMT: Mallampati Class: III Neck: trachea midline, no thyromegaly normal visual inspection Respiratory: + tachypneic Cardiovascular: RRR, no murmur, no edema Gastrointestinal (Abdomen): normal bowel sounds, soft, nontender, no hepatosplenomegaly Musculoskeletal: no cyanosis or clubbing, extremities motor strength 5/5 Skin: no rashes, warm and dry Neurologic: PERRL, EOMI, accommodation nl, no face palsy, no dysarthria CN's II-XI intact bilaterally Psychiatric: A+Ox3, euthymic affect Orientation: alert, oriented x 3 and cooperative Eye Contact: + fair eye contact Affect: + anxious affect Thought Process: goal directed thought process Lymphatic: no cervical or axillary lymphadenopathy Results & Data Vital Signs (Past 12 Hours) Vital Signs Temp Pulse Pulse Resp BP BP Pulse Ox 10/23/19 08:55 85 28 H 143/71 H 92 05/06/19 08:50 90 28 H 156/98 H 90 05/06/19 08:45 101 H 28 H 215/84 H 88 L 05/06/19 08:40 82 28 H 163/95 H 96 05/06/19 08:35 85 24 179/96 H 97 05/06/19 08:30 84 24 162/82 H 98 05/06/19 07:47 97.5 F L 82 19 129/68 95 05/06/19 07:30 81 05/06/19 07:01 87 18 96 05/06/19 03:08 98.2 F 84 22 164/80 H 96 05/05/19 23:28 98.8 F 89 20 166/71 H 93 05/05/19 23:10 86 20 95 PG Care Time/CCT Total # of Minutes Spent Total Time Spent with Patient: Total time spent is greater than 50% in coordination of care (as documented) at patient's floor/unit and/or counseling patient:
[2019-05-06 10:25] LABS: Fluid Mono/Macrophage 13 %; Lymphocyte Body Fluid Man 6 %; Neutrophil Body Fluid Man 81 %
[2019-05-06] MEDS: BUDESONIDE/FORMOTEROL FUMARATE 160/4.5 60 PUFFS/INHALER INH SCH ×2 (11:31→20:45)
[2019-05-06] MEDS: PANTOprazole 40 MG TAB PO SCH ×2 (11:32→20:45)
[2019-05-06] MEDS: guaiFENesin 600 MG TABCR PO SCH ×2 (11:32→20:45)
[2019-05-06] MEDS: OMEGA-3 (PURIFIED FISH OIL) 1 GM CAP PO SCH (11:32)
[2019-05-06] MEDS: MULTIVITAMIN TAB PO SCH (11:32)
[2019-05-06] MEDS: DULOXETINE HCL 60 MG CAP PO SCH (11:32)
[2019-05-06] MEDS: NYSTATIN SUSP 500,000 U/5 ML UDC PO SCH ×4 (11:32→20:42)
[2019-05-06] MEDS: MAGNESIUM OXIDE 400 MG TAB PO SCH (11:33)
[2019-05-06] MEDS: OXcarbazepine 150 MG TABLET PO SCH ×2 (11:33→20:41)
[2019-05-06] MEDS: PARoxetine HCl 20 MG TAB PO SCH (11:33)
[2019-05-06] MEDS: LORazepam 0.5 MG TAB PO SCH (11:33)
[2019-05-06] MEDS: NYSTATIN 30 ML, DEXAMETHASONE CONC 3.75 MG, DiphenhydrAMINE Syrup 300 MG, ORA-SWEET SYR... PO SCH ×4 (11:34→20:45)
--- NOTE | 2019-05-06 12:01 | Hospitalist Progress Note ---
Date of Service May 06, 2019 Assessment & Plan (1) Acute hypoxemic respiratory failure: Modest improvement overnight. Has extensive b/l airspace opacities - uncertain if infectious vs inflammatory. Either way she remains on levaquin IV and solumedrol 80mg IV q8h. Cont mucinex, flutter valve, chest PT, duonebs, symbicort 2 puffs BID. May be able to slowly wean steroids starting tomorrow. Appreciate pulmonary consultation; s/p bronch today. SED RATE noted to be >90 - inflammatory lung disease possible. Awaiting inflammatory w/u (ANCA, etc all pending). (2) Bilateral pneumonia: see discussion above in resp failure remains on levaquin in the event there is a bacterial process present await bronch cultures (3) Bilateral pulmonary infiltrates on chest x-ray: infectious vs noninfectious etiologies vs CHF vs other CT chest with extensive airspace disease ESR>90 echo with diastolic dysfunction but otherwise normal EF and normal valves unlikely to be CHF in origin cont abx, steroids, nebs, chest PT, supportive care (4) Hyponatremia: Chronic. Low urine Na c/w solute depletion. High urine osm relative to serum osm, however, is most c/w SIADH. Cont fluid restriction. Consider salt tablet daily as long as CHF is fully ruled out as etiology for lung issues. BMP again stable today. (5) Chronic obstructive pulmonary disease: with exacerbation. cont IV steroids - no wean today but perhaps tomorrow. see above in respiratory failure for more information. (6) Hypertension: labile; suspect we may need to add additional meds (7) Fibromyalgia: Continue home medications (8) Bipolar affective disorder: continue home meds no cem or hypomania stable (9) Tobacco abuse disorder: counseled to quit. declining nicoderm (10) Candidiasis of mouth and esophagus: IMPROVED. cont diflucan 100mg daily today is day #2 of therapy cont nystatin - swish/swallow (11) DVT prophylaxis: heparin SC updated by phone 05/06/19 Subjective patient feeling better had 1 episode where she actually coughed up some mucous dyspnea is improved walked to bathroom today and much less DAVIDSON than previous can take larger breaths tele overnight normal had bronch this am and this went well Review of Systems Constitutional: no fever and no chills Respiratory: + chest congestion, + dyspnea, + dyspnea on exertion and + wheezing; no hemoptysis Cardiovascular: no chest pain Gastrointestinal: no abdominal pain, no nausea, no vomiting and no constipation Physical Exam Constitutional: + morbidly obese; no acute distress ENMT: Mouth: + oral mucosal abnormality (thrush plaques improved today) Respiratory: + cough Auscultation: + crackles (anterior/posterior - improved today; better airation) Cardiovascular: Rate/Rhythm: regular rate and regular rhythm Heart Sounds: normal S1 and normal S2; no murmur Vessels: posterior tibial pulses present and dorsalis pedis pulses present; no JVD Extremities: no edema Gastrointestinal (Abdomen): normal bowel sounds, soft, nontender, no hepatosplenomegaly Skin: no rashes, warm and dry Psychiatric: A+Ox3, euthymic affect Results & Data Vital Signs (Past 12 Hours) Vital Signs Temp Pulse Pulse Resp BP Pulse Ox 05/06/19 11:46 36.4 C L 05/06/19 11:22 80 18 152/74 H 99 05/06/19 11:18 83 16 94 05/06/19 10:53 36.6 C 81 18 143/96 H 97 05/06/19 10:25 36.9 C 82 18 157/79 H 97 05/06/19 09:51 36.6 C 83 20 152/74 H 95 05/06/19 09:25 36.7 C 90 18 133/64 92 05/06/19 09:00 85 28 H 143/72 H 92 05/06/19 08:55 85 28 H 143/71 H 92 05/06/19 08:50 90 28 H 156/98 H 90 05/06/19 08:45 101 H 28 H 215/84 H 88 L 05/06/19 08:40 82 28 H 163/95 H 96 05/06/19 08:35 85 24 179/96 H 97 05/06/19 08:30 84 24 162/82 H 98 05/06/19 07:47 36.4 C L 82 19 129/68 95 05/06/19 07:30 81 05/06/19 07:01 87 18 96 05/06/19 03:08 36.8 C 84 22 164/80 H 96 Laboratory Results Laboratory Results - last 24 hr 05/06/19 05/06/19 05/06/19 05:43 05:43 Unknown WBC 26.33 H RBC 3.53 L Hgb 10.9 L Hct 30.3 L MCV 85.8 MCH 30.9 MCHC 36.0 RDW Std Deviation 43.2 RDW Coeff of Tisha 13.9 Plt Count 338 MPV 9.4 Sodium 129 L Potassium 4.5 Chloride 96 L Carbon Dioxide 26 Anion Gap 8.0 BUN 12 Creatinine 0.52 L Est Cr Clr Drug Dosing 184.8 Est GFR ( Amer) 132.8 Est GFR (Non-Af Amer) 114.6 BUN/Creatinine Ratio 23.5 H Glucose 158 H Calcium 8.9 Fluid Neutrophils % 81 Fluid Lymphocytes % 6 Fl Monocyt/Macrophag % 13 CMV Specimen Source CMV Qnt PCR IU/mL CMV Qnt PCR log IU/mL 05/06/19 Unknown WBC RBC Hgb Hct MCV MCH MCHC RDW Std Deviation RDW Coeff of Tisha Plt Count MPV Sodium Potassium Chloride Carbon Dioxide Anion Gap BUN Creatinine Est Cr Clr Drug Dosing Est GFR ( Amer) Est GFR (Non-Af Amer) BUN/Creatinine Ratio Glucose Calcium Fluid Neutrophils % Fluid Lymphocytes % Fl Monocyt/Macrophag % CMV Specimen Source Pending CMV Qnt PCR IU/mL Pending CMV Qnt PCR log IU/mL Pending PG Care Time/CCT Total # of Minutes Spent Total Time Spent with Patient: Total time spent is greater than 50% in coordination of care (as documented) at patient's floor/unit and/or counseling patient: (1) Bipolar affective disorder Active/Remission status: remission status unspecified Qualified Code(s): F31.9 - Bipolar disorder, unspecified (2) Chronic obstructive pulmonary disease COPD type: unspecified COPD Qualified Code(s): J44.9 - Chronic obstructive pulmonary disease, unspecified (3) Bilateral pneumonia Lung location: unspecified part of lung Pneumonia type: due to unspecified organism Qualified Code(s): J18.9 - Pneumonia, unspecified organism (4) Hypertension Hypertension type: essential hypertension Qualified Code(s): I10 - Essential (primary) hypertension
[2019-05-06] MEDS: FLUCONAZOLE 100 MG TAB PO SCH (12:24)
[2019-05-06] MEDS: LEVOFLOXACIN/D5W 750 MG/150 ML BAG IV SCH (14:18)
[2019-05-06] MEDS: QUETIAPINE FUMARATE 200 MG TAB PO SCH (20:43)
[2019-05-06] MEDS: HEPARIN SOD 5,000 UNIT/0.5 ML VIAL SQ SCH (20:43)
[2019-05-06] MEDS: QUETIAPINE FUMARATE 100 MG TABLET PO SCH (20:43)
[2019-05-06] MEDS: PRAZOSIN HCL 1 MG CAP PO SCH (20:44)
[2019-05-06] MEDS: TRAZODONE HCL 100 MG TAB PO SCH (20:45)
[2019-05-07] MEDS: NYSTATIN 30 ML, DEXAMETHASONE CONC 3.75 MG, DiphenhydrAMINE Syrup 300 MG, ORA-SWEET SYR... PO SCH ×4 (02:06→14:12)
[2019-05-07] MEDS: ALBUT/IPRATROP 3MG/0.5MG NEB 3 ML VIAL NEB SCH ×6 (03:06→22:58)
--- NOTE | 2019-05-07 07:46 | XRay Report ---
SINGLE VIEW CHEST CLINICAL HISTORY: Follow-up airspace consolidation. FINDINGS: An AP, portable, upright chest radiograph is compared to study dated 05/04/2019 and correla andres with chest CT dated 05/04/2019. The examination is degraded by portable technique and patient rot ation. The heart is top normal for projection. There is diffuse airspace consolidation seen throughou t both lungs. No large pleural effusion or pneumothorax is seen. The skeletal structures are osteopen ic. The bony thorax is grossly intact. IMPRESSION: 1. Diffuse airspace consolidation is again seen throughout both lungs. This has not appreciably diop ed from 05/04/2019. 2. No large pleural effusion is identified. Electronically signed by: Henry Gonzalez M.D. 05/07/2019 7:45 AM
--- NOTE | 2019-05-07 09:50 | Hospitalist Progress Note ---
Date of Service May 07, 2019 Assessment & Plan (1) Acute hypoxemic respiratory failure: resolved off O2 Has extensive b/l airspace opacities - uncertain if infectious vs inflammatory - likely latter. wean steroids change abx to PO and complete 7 days in total Cont mucinex, flutter valve, chest PT, duonebs, symbicort 2 puffs BID. Appreciate pulmonary consultation SED RATE noted to be >90 - inflammatory lung disease possible. Awaiting inflammatory w/u (ANCA, etc all pending). (2) Bilateral pneumonia: see discussion above in resp failure remains on levaquin in the event there is a bacterial process present await bronch cultures but thus far negative change levaquin from IV to PO complete 7 days in total (3) Bilateral pulmonary infiltrates on chest x-ray: infectious vs noninfectious etiologies vs CHF vs other CT chest with extensive airspace disease ESR>90 echo with diastolic dysfunction but otherwise normal EF and normal valves unlikely to be CHF in origin cont abx, steroids, nebs, chest PT, supportive care suspected to be inflammatory lung disease - perhaps smoking related ILD (4) Hyponatremia: Chronic. Low urine Na c/w solute depletion. High urine osm relative to serum osm, however, is most c/w SIADH. Cont fluid restriction. Consider salt tablet daily bmp am for stability (5) Chronic obstructive pulmonary disease: with exacerbation. cont IV steroids but wean today then PO prednisone tomorrow (6) Hypertension: labile but should improve w/ weaning of steroids (7) Fibromyalgia: Continue home medications (8) Bipolar affective disorder: continue home meds no cem or hypomania stable (9) Tobacco abuse disorder: counseled to quit. declining nicoderm (10) Candidiasis of mouth and esophagus: IMPROVED. cont diflucan 100mg daily today is day #3 of therapy; Rx 7 days cont nystatin - swish/swallow (11) DVT prophylaxis: heparin SC updated by phone 05/06/19 home tomorrow on slow prednisone taper? d/c tele move to med/surg Subjective patient feeling well o2 has been weaned off telemetry wnl cough is improved minimal DAVIDSON eating very well feels SO MUCH better in comparison to earlier this week Review of Systems Constitutional: no fever, no chills, no fatigue and no anorexia Respiratory: + cough, + dyspnea on exertion (minimal ) and + wheezing; no dyspnea Cardiovascular: no chest pain Gastrointestinal: no abdominal pain Physical Exam Constitutional: + morbidly obese; no acute distress ENMT: Mouth: + oral mucosal abnormality (thrush plaques resolved) Respiratory: Auscultation: + crackles and + wheezes all adventitious sounds are MARKEDLY better; airation is MARKEDLY BETTER Cardiovascular: Rate/Rhythm: regular rate and regular rhythm Heart Sounds: normal S1 and normal S2; no murmur Vessels: posterior tibial pulses present and dorsalis pedis pulses present; no JVD Extremities: no edema Gastrointestinal (Abdomen): normal bowel sounds, soft, nontender, no hepatosplenomegaly Skin: no rashes, warm and dry Psychiatric: A+Ox3, euthymic affect Results & Data Vital Signs (Past 12 Hours) Vital Signs Temp Pulse Resp BP Pulse Ox 05/07/19 07:11 82 16 94 05/07/19 07:04 36.6 C 80 20 121/55 L 96 05/07/19 04:39 36.7 C 79 20 164/83 H 98 05/06/19 23:39 37.0 C 80 20 156/79 H 92 05/06/19 23:21 88 20 95 Laboratory Results all cultures from bronch negative to date cytologies pending PG Care Time/CCT Total # of Minutes Spent Total Time Spent with Patient: Total time spent is greater than 50% in coordination of care (as documented) at patient's floor/unit and/or counseling patient: (1) Bipolar affective disorder Active/Remission status: remission status unspecified Qualified Code(s): F31.9 - Bipolar disorder, unspecified (2) Chronic obstructive pulmonary disease COPD type: unspecified COPD Qualified Code(s): J44.9 - Chronic obstructive pulmonary disease, unspecified (3) Bilateral pneumonia Lung location: unspecified part of lung Pneumonia type: due to unspecified organism Qualified Code(s): J18.9 - Pneumonia, unspecified organism (4) Hypertension Hypertension type: essential hypertension Qualified Code(s): I10 - Essential (primary) hypertension
[2019-05-07] MEDS: LORazepam 0.5 MG TAB PO SCH (10:36)
[2019-05-07] MEDS: DULOXETINE HCL 60 MG CAP PO SCH (10:37)
[2019-05-07] MEDS: FLUCONAZOLE 100 MG TAB PO SCH (10:38)
[2019-05-07] MEDS: MAGNESIUM OXIDE 400 MG TAB PO SCH (10:39)
[2019-05-07] MEDS: MULTIVITAMIN TAB PO SCH (10:39)
[2019-05-07] MEDS: guaiFENesin 600 MG TABCR PO SCH ×2 (10:39→20:14)
[2019-05-07] MEDS: OMEGA-3 (PURIFIED FISH OIL) 1 GM CAP PO SCH (10:40)
[2019-05-07] MEDS: PARoxetine HCl 20 MG TAB PO SCH (10:40)
[2019-05-07] MEDS: NYSTATIN SUSP 500,000 U/5 ML UDC PO SCH ×4 (10:40→20:16)
[2019-05-07] MEDS: BUDESONIDE/FORMOTEROL FUMARATE 160/4.5 60 PUFFS/INHALER INH SCH ×2 (10:41→20:11)
[2019-05-07] MEDS: methylPREDNISolone 40 MG in SYRINGE 0 ML IV SCH ×2 (10:41→20:56)
[2019-05-07] MEDS: PANTOprazole 40 MG TAB PO SCH ×2 (10:41→20:14)
[2019-05-07] MEDS: OXcarbazepine 150 MG TABLET PO SCH ×2 (10:43→20:10)
[2019-05-07] MEDS: HEPARIN SOD 5,000 UNIT/0.5 ML VIAL SQ SCH ×2 (11:15→20:19)
[2019-05-07] MEDS: LEVOFLOXACIN/D5W 750 MG/150 ML BAG IV SCH (13:22)
[2019-05-07] MEDS: levoFLOXacin 750 MG TAB PO SCH (14:12)
--- NOTE | 2019-05-07 17:45 | Pulmonology Progress Note ---
Date of Service May 07, 2019 Assessment & Plan (1) Acute hypoxemic respiratory failure: Bronchoscopy yesterday demonstrated mucopurulent secretions. Cell count was remarkable for neutrophilia which is consistent with an inflammatory process. No eosinophilia was seen. Cultures so far negative. Per verbal report from pathology there appears to be some atypia on the cytology. Full cytology is still pending. Given her dramatic clinical response to prednisone, I suspect that this pattern that we are seeing on her CAT scan is likely related to a tobacco related interstitial lung disease that she was respiratory colitis interstitial lung disease versus desquamative interstitial lung disease. The treatment for this is complete smoking cessation and a course of prednisone. 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 Recommend continuing her on prednisone for a month. Continue 40 mg of p.o. prednisone for 2 weeks and then take her down to 30 mg on the third week. I would like to see her in our clinic in 2 weeks time with a chest x-ray and a full PFT at that time. She can be discharged likely tomorrow. Rheumatoid factor, KRISHAN, ANCA, anti-Nadya, anti-Ro and anti-La antibodies are still pending. Her ESR was elevated which is a nonspecific marker. (2) Bilateral pulmonary infiltrates on chest x-ray: (3) Non-productive cough: Subjective Patient is doing substantially better today. She denies any significant shortness of breath. She is able to ambulate around the hallways without requiring supplemental oxygen. She denies any chest pain, nausea or shortness of breath. Review of Systems Review of Systems: Negative unless noted elsewhere. Physical Exam Constitutional: WD/WN, vitals as above Eyes: PERRL, conjunctivae normal, anicteric sclerae ENMT: external ear and nose normal, oropharynx normal Neck: normal visual inspection Respiratory: No significant wheezes. Clear to auscultation. Cardiovascular: RRR, no murmur, no edema Gastrointestinal (Abdomen): normal bowel sounds, soft, nontender, no hepatosplenomegaly Musculoskeletal: no cyanosis or clubbing, extremities motor strength 5/5 Skin: no rashes, warm and dry Neurologic: PERRL, EOMI, accommodation nl, no face palsy, no dysarthria Psychiatric: A+Ox3, euthymic affect Results & Data Vital Signs (Past 12 Hours) Vital Signs Temp Pulse Pulse Resp BP Pulse Ox 05/07/19 15:45 98.2 F 85 18 147/71 H 91 05/07/19 15:36 89 18 90 05/07/19 15:06 88 05/07/19 11:18 97.5 F L 85 20 107/53 L 94 05/07/19 11:13 83 18 93 05/07/19 07:11 82 16 94 05/07/19 07:04 97.9 F 80 20 121/55 L 96 I personally reviewed the patient's pertinent lab findings and chest imaging. PG Care Time/CCT Total # of Minutes Spent Total Time Spent with Patient: Total time spent is greater than 50% in coordination of care (as documented) at patient's floor/unit and/or counseling patient:
[2019-05-07] MEDS: QUETIAPINE FUMARATE 100 MG TABLET PO SCH (20:12)
[2019-05-07] MEDS: QUETIAPINE FUMARATE 200 MG TAB PO SCH (20:13)
[2019-05-07] MEDS: TRAZODONE HCL 100 MG TAB PO SCH (20:13)
[2019-05-07] MEDS: PRAZOSIN HCL 1 MG CAP PO SCH (20:13)
[2019-05-08] MEDS: ALBUT/IPRATROP 3MG/0.5MG NEB 3 ML VIAL NEB SCH ×4 (03:16→15:21)
[2019-05-08 06:18] LABS: Hematocrit (blood only) 33.1 % (37-47); Hemoglobin 11.6 g/dL (12.0-16.0); Mean Corpuscular Hemoglobin 30.5 pg (25-34); Mean Corpuscular Volume 87.1 fL (80-100); Mean Platelet Volume 8.6 fL (7.4-10.4); Platelet Count 339 K/uL (130-400); RDW Standard Deviation 44.9 fL (36.4-46.3); White Blood Count 18.05 K/uL (4.8-10.8)
[2019-05-08 06:47] LABS: BUN Creatinine Ratio 20.2 (10-20); Calcium 8.8 mg/dl (8.5-10.1); Creatinine Clr Calc Pharmacy 138.4 ml/min; Est GFR (African American) 120.4; Est GFR (Non-African American) 103.9
[2019-05-08] MEDS: methylPREDNISolone 40 MG in SYRINGE 0 ML IV SCH (07:57)
[2019-05-08] MEDS: guaiFENesin 600 MG TABCR PO SCH (07:58)
[2019-05-08] MEDS: FLUCONAZOLE 100 MG TAB PO SCH (07:58)
[2019-05-08] MEDS: MULTIVITAMIN TAB PO SCH (07:58)
[2019-05-08] MEDS: PANTOprazole 40 MG TAB PO SCH (07:58)
[2019-05-08] MEDS: PARoxetine HCl 20 MG TAB PO SCH (07:58)
[2019-05-08] MEDS: DULOXETINE HCL 60 MG CAP PO SCH (07:59)
[2019-05-08] MEDS: BUDESONIDE/FORMOTEROL FUMARATE 160/4.5 60 PUFFS/INHALER INH SCH (07:59)
[2019-05-08] MEDS: MAGNESIUM OXIDE 400 MG TAB PO SCH (07:59)
[2019-05-08] MEDS: LORazepam 0.5 MG TAB PO SCH (08:00)
[2019-05-08] MEDS: NYSTATIN SUSP 500,000 U/5 ML UDC PO SCH ×3 (08:00→17:16)
[2019-05-08] MEDS: OXcarbazepine 150 MG TABLET PO SCH (08:00)
[2019-05-08] MEDS: HEPARIN SOD 5,000 UNIT/0.5 ML VIAL SQ SCH (08:01)
[2019-05-08] MEDS: OMEGA-3 (PURIFIED FISH OIL) 1 GM CAP PO SCH (08:01)
[2019-05-08 10:52] LABS: CMV DNA Qnt Real Time PCR <200 IU/mL (<200); CMV DNA Quant PCR <2.30 log IU/mL (<2.30)
[2019-05-08] MEDS: levoFLOXacin 750 MG TAB PO SCH (11:09)
--- NOTE | 2019-05-08 12:57 | Pulmonology Progress Note ---
Date of Service May 08, 2019 Assessment & Plan (1) Acute hypoxemic respiratory failure: Patient continues to do quite well. I think she is responding to prednisone therapy. I do not think that she is infected at this time. I would stop antibiotics. She does appear to be getting more hypertensive and she does have some degree of diastolic heart failure. She also has some lower extremity edema. Recommend starting her on a low dose diuretic such as 20 mg of Lasix daily. 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 She needs to completely abstain from cigarette smoking. Continue 40 mg of p.o. prednisone for 2 weeks and then take her down to 30 mg on the third week. I would like to see her in our clinic in 2 weeks time with a chest x-ray and a full PFT at that time. She can be discharged likely tomorrow. Rheumatoid factor, KRISHAN, ANCA, anti-Nadya, anti-Ro and anti-La antibodies are still pending. Her ESR was elevated which is a nonspecific marker. I think she is safe to be discharged from pulmonary perspective. (2) Bilateral pulmonary infiltrates on chest x-ray: (3) Non-productive cough: Subjective Patient continues to do very well. She denies any significant shortness of breath. She is able to ambulate around the hallway. She denies any chest pain. She does have some lower extremity edema. Physical Exam Constitutional: WD/WN, vitals as above well developed Eyes: PERRL, conjunctivae normal, anicteric sclerae ENMT: Mallampati Class: III Neck: trachea midline, no thyromegaly normal visual inspection Respiratory: + tachypneic Cardiovascular: Rate/Rhythm: regular rate and regular rhythm Heart Sounds: normal S1 and normal S2 1+ pitting edema lower extremities. Gastrointestinal (Abdomen): normal bowel sounds, soft, nontender, no hepatosplenomegaly Musculoskeletal: no cyanosis or clubbing, extremities motor strength 5/5 Skin: no rashes, warm and dry Neurologic: PERRL, EOMI, accommodation nl, no face palsy, no dysarthria CN's II-XI intact bilaterally Psychiatric: A+Ox3, euthymic affect Orientation: alert, oriented x 3 and cooperative Eye Contact: good eye contact and + fair eye contact Thought Process: goal directed thought process Lymphatic: no cervical or axillary lymphadenopathy Results & Data Vital Signs (Past 12 Hours) Vital Signs Temp Pulse Pulse Resp BP BP Pulse Ox 05/08/19 11:52 98.2 F 100 H 78 18 146/80 H 161/79 H 98 05/08/19 11:11 78 18 98 05/08/19 07:28 98.2 F 80 16 146/80 H 100 05/08/19 07:03 70 14 I personally reviewed the patient's labs and pertinent imaging. PG Care Time/CCT Total # of Minutes Spent Total Time Spent with Patient: Total time spent is greater than 50% in coordination of care (as documented) at patient's floor/unit and/or counseling patient:
--- NOTE | 2019-05-08 18:07 | Discharge Summary ---
Date of Service date of admission - May 02, 2019 date of discharge - May 08, 2019 Admission HPI Per Admitting Provider The patient is a 48-year-old female with long-standing tobacco dependence and COPD who has not been feeling well for last 7 days. Her symptoms started with sinus complaints, cough and cold symptoms which gradually got worse. She was seen by her family physician 3 days back and diagnosed with bilateral pneumonia and started on oral Zithromax. Despite being on oral Zithromax her symptoms progressed. She was then changed to oral doxycycline a few days later. She reported increasing cough with sputum, chills, and progressive dyspnea. She was given DuoNeb breathing treatment by the EMT and also received IV Solu-Medrol en route. She is 89% on room air on arrival to the ED. In the ED today she was started on IV Levaquin. Principal Diagnosis acute hypoxic respiratory failure Discharge Exam Constitutional + morbidly obese; no acute distress ENMT Mouth: + oral mucosal abnormality (thrush plaques resolved) Respiratory + cough Auscultation: + crackles and + wheezes Cardiovascular Rate/Rhythm: regular rate and regular rhythm Heart Sounds: normal S1 and normal S2; no murmur Vessels: posterior tibial pulses present and dorsalis pedis pulses present; no JVD Extremities: no edema Gastrointestinal (Abdomen) normal bowel sounds, soft, nontender, no hepatosplenomegaly Skin no rashes, warm and dry Psychiatric A+Ox3, euthymic affect Discharge Data Allergies Allergy/AdvReac Type Severity Reaction Status Date / Time aripiprazole Allergy Mild Verified 05/02/19 14:29 pregabalin Allergy Mild blurry Verified 05/02/19 14:29 vision Sulfa (Sulfonamide Allergy Mild RASH Verified 05/02/19 14:29 Antibiotics) Bactrim Allergy Unknown UNKNOWN Unverified 02/09/18 09:30 erythromycin base Allergy Unknown RXN Verified 05/02/19 14:29 UNKNOWN,BUT TOLD HER NOT TO TAKE ANYMORE mivacurium Allergy Unknown Verified 05/02/19 14:29 Penicillins Allergy Unknown Verified 05/02/19 14:29 prednisone Allergy Unknown Verified 05/02/19 14:29 sulfamethoxazole Allergy Unknown UNKNOWN Verified 05/02/19 14:29 trimethoprim Allergy Unknown UNKNOWN Verified 05/02/19 14:29 aspirin AdvReac Mild upset Verified 05/02/19 14:29 stomach naproxen AdvReac Verified 05/02/19 14:29 varenicline [From Chantix] AdvReac Verified 05/02/19 14:29 Consultations Pulmonology - Reed Francis MD Infectious disease - Priscilla Pearson DO OT, PT Procedures Performed Operation Date: 05/06/19 Bronchoscopy - Ananda Francis MD Ordered Studies CT chest - IMPRESSION: 1. Near diffuse patchy groundglass airspace opacity seen throughout the lungs. Some of these demonstrate interlobular septal thickening. This is nonspecific could be due to multifocal pneumonia, alveolar proteinosis, hypersensitivity pneumonitis, or possibly sarcoidosis. Pulmonology consultation recommended. 2. Tiny bilateral pleural effusions. 3. Mild mediastinal and bilateral hilar lymphadenopathy. 3-[address] follow-up recommended to ensure resolution. Echocardiogram - * EF 60-65% * normal valve function * grade 1 diastolic dysfunction Hospital Course (1) Acute hypoxemic respiratory failure: Presented with bilateral airspace opacities on chest imaging. It was uncertain if the infiltrates were infectious or inflammatory. She made little improvement, despite IV steroids and antibiotics, in the early portion of her stay. She ultimately required pulmonary consultation, an increase in her IV steroids, and advanced chest imaging in the way of chest CT. Chest CT showed diffuse infiltrates of all lung segments bilaterally. SED RATE was noted to be >90; thus, inflammatory lung disease was possible. A diagnosis of smoking-related ILD was entertained. Pulmonary recommended autoimmune work-up including RF, KRISHAN, ANCAs, etc. These were pending at time of discharge. She ultimately underwent bronchoscopy. Cultures from the bronch were negative while hospitalized. Cytologies were pending at time of discharge. Trans-bronchial biopsy was recommended but deferred by the patient. With high-dose IV steroids, aggressive pulmonary toilet, oxygen, and supportive care she gradually started to feel better. O2 was successfully weaned off. At discharge she will stay on daily prednisone at a dose of 40mg/day. This will be weaned to 30mg/day after [address] Francis from pulmonary will see her in the pulmonary clinic 2 weeks post- discharge. Of note - she completed a full-course of 7 days of antibiotics while hospitalized. (2) Bilateral pneumonia: see discussion above in "acute hypoxic resp failure" completed a full 7-day course of IV/PO levaquin in the event there was a bacterial process present bronch cultures were negative, however, while hospitalized legionella antigen was pending at time of discharge (3) Bilateral pulmonary infiltrates on chest x-ray: infectious vs noninfectious etiologies vs CHF vs other CT chest with extensive airspace disease as noted above ESR>90 echo with diastolic dysfunction but otherwise normal EF and normal valves unlikely to be CHF in origin and did indeed had lasix without any change clinically received IV/PO antibiotics and steroids, nebs, chest PT, and supportive care suspected to be inflammatory lung disease - perhaps smoking-related ILD again will discharge on 40mg/day of prednisone, cutting back to 30mg/day after 2 weeks of continuous use. she will need close f/u in the pulmonary clinic about 2 weeks post-discharge. (4) Hyponatremia: Chronic. Low urine Na c/w solute depletion. High urine osm relative to serum osm, however, is most c/w SIADH. Cont fluid restriction at home. Consider salt tablet daily. Placed on lasix 20mg daily at time of discharge. Discharge Na was 130 - about baseline for her. Recommend BMP at time of hospital follow-up for stability of sodium level. (5) Chronic obstructive pulmonary disease: with exacerbation. received IV steroids; weaned to PO prednisone while here. see discussion above. (6) Hypertension: labile throughout the stay but should improve with weaning of steroids (7) Fibromyalgia: Continue home medications No issues while here (8) Bipolar affective disorder: continue home meds no cem or hypomania stable while hospitalized (9) Tobacco abuse disorder: counseled to quit. she declined nicotine replacement while hospitalized. (10) Candidiasis of mouth and esophagus: IMPROVED. Received combination of diflucan and nystatin while here. Will complete a course of nystatin swish/swallow at home. (11) Morbid obesity with BMI of 40.0-44.9, adult: BMI 41 Total Time Total Time Spent Total Time Spent (In Minutes): 45 Total Time Includes: Examination of the Patient, Discharge Planning, Medication Reconciliation and Communication With Other Providers Discharge Plan Discharge Items Patient Disposition: Home - Self-Care Reason For Visit: PNEUMONIA Discharge Diagnosis: 1. pneumonia of both lungs vs inflammatory lung disease - improving 2. COPD with exacerbation Goals: 1. treat the pneumonia 2. improve the breathing Activity: As commented below Activity Comment: light activities for 1-2 weeks as your lungs recover Non-emergency contact: Primary Care Provider and Wind Farm Engineer Call non-emergency contact if: you have any medication questions, your symptoms worsen and you have a fever Follow-up/Referrals: Frankie Sanchez III, MD [Primary Care Provider] - 05/14/19 2:00 pm (Please, follow up with Dr. Sanchez on May 14 at 2:00 pm. *If you need to change this appointment, call the office at [phone].) Ananda Francis MD [Physician] - 05/25/19 2:00 pm (Please, follow up at the [facility] Pulmonology Office with Dr. Francis on SaturdayMay 25 at 2:00 pm. *The office is located in [address] of [facility]. This is the big building located next to this hospital. If you need to change this appointment, call the office at [phone].) Diet: Heart Healthy Fluids: 1800ml (7 cups) Addtl Attending Provider Instructions: You were admitted for bilateral pneumonia. Early on, despite antibiotics and steroids, you were not feeling better. We increased your steroids and had the lung doctor (supervisor inspection) see you in consult. You ultimately underwent a CAT scan of the lungs showing extensive illness of both lungs. Dr Francis performed a bronchoscopy and all cultures from that procedure are thus far negative. Although it is still possible you had pneumonia we are also thinking that the china ng problem was due to an inflammatory lung condition. This is best treated with steroids. You have made wonderful progress since earlier this week and your oxygen has been weaned off. Recommendations: 1. take prednisone as follows - * 40mg once daily every day for 2 weeks; take your first dose TOMORROW on 05/09/19 * THEN cut back to 30mg once daily every day * further instructions on what to do with your prednisone will be given Dr Francis at your follow-up appointment 2. use the duonebs in your nebulizer machine 4 times a day for at least 1 week 3. continue to use your incentive spirometry and flutter valve over the next 3- 4 days 4. may use [id number] mucinex up to 1200mg twice a day for cough/congestion 5. symbicort 2 puffs twice daily every day; this is for your COPD. Rinse your mouth with water after each use. 6. take furosemide 20mg once daily in the morning to prevent fluid retention. Take a potassium supplement with it. 7. for thrush (yeast) of the mouth - 5cc four times a day for 10 days. 8. please stop any prior antibiotics; you have received 7 days of antibiotics in the hospital. 9. continue to remain smoke-free if possible. 10. have your family doctor repeat a sodium level (BMP) at time of follow-up from the hospital. 11. limit your fluids to about 1800cc each day. 12. please stop motrin (ibuprofen) use as you will be taking prednisone every day for now. Follow-up -- see separate section. Return to [facility] if -- * you have fevers over 100.5 degrees * you have worsening cough or shortness of breath * you have severe diarrhea * you develop chest pains * any other concerns Pending Studies at Discharge: Yes Studies:: bronchoscopy cultures autoimmune labs Stand-Alone Forms: My [facility], Smoking Cessation Medications and DC Order Prescriptions: New nystatin 100,000 unit/mL Suspension 5 ml PO QID 10 Days Qty: 200 RF: 0 Symbicort 160-4.5 mcg/actuation Hfa Aerosol Inhaler 2 puff inhalation BID Qty: 1 RF: 2 prednisone 20 mg tablet 20 mg PO DIRECTED Qty: 60 RF: 0 furosemide [Lasix] 20 mg tablet 20 mg PO DAILY Qty: 30 RF: 0 potassium chloride 10 mEq capsule, extended release 10 meq PO DAILY Qty: 30 RF: 0 Continued duloxetine 60 mg capsule,delayed release(DR/EC) 60 mg PO DAILY Qty: 90 RF: 1 pantoprazole 40 mg tablet,delayed release (DR/EC) 40 mg PO BID Qty: 180 RF: 3 omega-3 fatty acids [Fish Oil Concentrate] 1,000 mg capsule 1,000 mg PO DAILY RF: 0 magnesium 250 mg tablet 500 mg PO DAILY RF: 0 multivitamin tablet 1 tab PO DAILY RF: 0 paroxetine HCl 20 mg tablet 20 mg PO DAILY RF: 0 albuterol sulfate 90 mcg/actuation HFA aerosol inhaler 2 puffs inhalation Q4H PRN (Reason: Shortness Of Breath) Qty: 1 RF: 0 quetiapine 400 mg tablet 400 mg PO .COMPLEX RF: 0 quetiapine 100 mg tablet 100 mg PO .COMPLEX RF: 0 acetaminophen-codeine 300-30 mg tablet 1 tab PO DAILY PRN (Reason: pain) Qty: 30 RF: 0 lorazepam 0.5 mg tablet 0.5 mg PO DAILY RF: 0 prazosin 2 mg capsule 2 mg PO HS RF: 0 trazodone 100 mg tablet 100 mg PO HS RF: 0 oxcarbazepine 300 mg tablet See Rx Instructions PO BID PRN (Reason: Insomnia) Qty: 0 RF: 0 ipratropium-albuterol 0.5 mg-3 mg(2.5 mg base)/3 mL solution for nebulization 3 ml INH QID Qty: 1 RF: 2 Discontinued doxycycline hyclate 100 mg tablet 100 mg PO BID Qty: 14 RF: 0 ipratropium-albuterol 0.5 mg-3 mg(2.5 mg base)/3 mL solution for nebulization 3 ml INH QID Qty: 15 RF: 2 ibuprofen 600 mg tablet 600 mg PO Q6H PRN (Reason: Pain) Qty: 60 RF: 0 No Action cyclobenzaprine 10 mg tablet 10 mg PO TID PRN (Reason: muscle spasm) Qty: 90 RF: 5 Discharge Orders: Discharge Order (Routine); Ordered 05/08/19 Ordered By: Josep Alcocer Admission Data Admit Date/Time: 05/02/19 15:52 Attending Provider: Josep Alcocer Admit Provider: Radhames Smalls Primary Care Provider: Frankie Sanchez III Other Providers: Ananda Francis ; Priscilla Pearson Other Interventions: Discharge Summary Assessment (RN) Last Done: 05/08/19 11:52 DC Date/Time DO NOT enter until pt leaves facility: 05/08/19 18:00
[2019-05-11 16:40] LABS: ANA Screen Negative (Negative); ANCA Screen Negative (Negative); Anti-SS-A <1.0 NEG AI (<1.0 NEG); Anti-SS-B <1.0 NEG AI (<1.0 NEG); JO 1 Antibody <1.0 NEG AI (<1.0 NEG); Rheumatoid Factor 15 IU/ML (<14)
== END 2019-05-08 18:00 | disposition home or self-care (01) | DRG 196 ==
LOC: ED 13:07 → SUATTDRO 15:52 → 2E 15:52 → 3N 05-03 15:55 → 2E 05-04 16:38 → 4W 05-07 13:12

== ENCOUNTER 2023-01-02 18:46 | Observation (INO) ==
[2023-01-02] MEDS ORDERED: ASPIRIN CHEW 324 MG PO STA (19:19)
--- NOTE | 2023-01-02 19:27 | Emergency Department Note ---
History of Present Illness General Chief complaint: Chest Pain Stated complaint: CHEST PAIN, ARM NUMBNESS Time Seen by Provider: 01/02/23 19:08 History of Present Illness Maximum Pain Intensity: 5 52-year-old female presents emergency department with onset of left-sided chest pain. Patient complains of left-sided chest pain that radiates down the left arm. Patient denies any current shortness of breath nausea vomiting. Patient was driving a vehicle when this started been intermittent. Patient has no cardiac history. Patient denies hemoptysis. There are no other mitigating or a lleviating factors Home Medications Medication Instructions Recorded Confirmed Type lorazepam 0.5 mg tablet 0.5 mg PO DAILY PRN Anxiety 12/24/18 12/27/19 History pantoprazole 40 mg tablet,delayed 40 mg PO BID #180 tabs 03/12/19 12/27/19 Rx release albuterol sulfate 90 mcg/actuation 2 puffs inhalation Q4H PRN 03/27/19 12/27/19 History aerosol inhaler Shortness Of Breath #1 g magnesium 250 mg tablet 500 mg PO DAILY 03/27/19 12/27/19 History multivitamin 1 tab PO DAILY 03/27/19 12/27/19 History omega-3 fatty acids 1,000 mg 1,000 mg PO DAILY 03/27/19 12/27/19 History capsule (Fish Oil Concentrate) prazosin 2 mg capsule 2 mg PO HS 03/27/19 12/27/19 History trazodone 100 mg tablet 100 mg PO HS 03/27/19 12/27/19 History oxcarbazepine 300 mg tablet See Rx Instructions PO BID PRN 05/08/19 12/27/19 Rx Insomnia #0 tabs cyclobenzaprine 10 mg tablet 10 mg PO TID PRN muscle spasm #90 05/11/19 12/27/19 Rx tabs acetaminophen 300 mg-codeine 30 mg 1 tab PO DAILY PRN pain #30 tabs 05/21/19 12/27/19 Rx tablet duloxetine 60 mg capsule,delayed 60 mg PO DAILY #90 caps 05/21/19 12/27/19 Rx release quetiapine 100 mg tablet 100 mg PO HS 07/02/19 12/27/19 History quetiapine 400 mg tablet 400 mg PO HS 07/02/19 12/27/19 History budesonide-formoterol HFA 160 2 puff inhalation BID PRN 12/27/19 12/27/19 History mcg-4.5 mcg/actuation aerosol Shortness Of Breath Or Wheezing inhaler (Symbicort) paroxetine HCl 40 mg tablet 40 mg PO DAILY 12/27/19 12/27/19 History Allergies Allergy/AdvReac Type Severity Reaction Status Date / Time aripiprazole Allergy Mild Unknown Verified 12/27/19 20:01 pregabalin Allergy Mild blurry Verified 12/27/19 20:01 vision Sulfa (Sulfonamide Allergy Mild RASH Verified 12/27/19 20:01 Antibiotics) azithromycin Allergy Unknown Unknown Verified 12/27/19 20:01 erythromycin base Allergy Unknown RXN Verified 12/27/19 20:01 UNKNOWN,BUT MD TOLD HER NOT TO TAKE ANYMORE Penicillins Allergy Unknown Unknown Verified 12/27/19 20:01 prednisone Allergy Unknown Unknown Verified 12/27/19 20:01 sulfamethoxazole Allergy Unknown UNKNOWN Verified 12/27/19 20:01 trimethoprim Allergy Unknown UNKNOWN Verified 12/27/19 20:01 aspirin AdvReac Mild upset Verified 12/27/19 20:01 stomach naproxen AdvReac Unknown Verified 12/27/19 20:01 varenicline [From Chantix] AdvReac Unknown Verified 12/27/19 20:01 Past Med/Surg History Medical History (Updated 01/02/23 @ 20:28 by Ottoniel Hernandez DO) Acid reflux Acute hypoxemic respiratory failure Asthma Bilateral pneumonia Bilateral pulmonary infiltrates on chest x-ray Bipolar affective disorder Chronic obstructive pulmonary disease Chronic prescription opiate use Dyslipidemia Foot fracture, left Hypertension Hyponatremia Insomnia Morbid obesity with BMI of 40.0-44.9, adult Tobacco abuse disorder Yeast infection Surgical History H/O tubal ligation Status post hysteroscopic ablation of endometrium Family History Unknown Diabetes Other Hypertension Social History Smoking Status: Never smoker Tobacco Type: Cigarettes Age Started Using Tobacco: 14; packs per day: 1.5; Cigarettes Per Day: 30; Second Hand Exposure: No; Do You Dip or Chew Tobacco: No; Hx Alcohol Use: No Hx Substance Use: No Preferred Language: Hong Konger Communication Ability: Effective 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 Beliefs That Will Affect Care: None Current Living Situation: Spouse Feels Safe at Home: Yes Assistive Devices: None Review of Systems A total of 10 systems reviewed and were otherwise negative Respiratory: no cough Cardiovascular: + chest pain Physical Exam Vital Signs Vital Signs - 24 hr 01/02/23 19:01 01/02/23 19:09 01/02/23 19:11 Temperature 36.9 C Temperature Source Temporal Artery Scan Pulse Rate 91 H 85 Respiratory Rate 16 16 Respiratory Effort / Characteristics Non-Labored Respiratory Depth Normal Blood Pressure 178/97 H 180/93 H Blood Pressure Mean 124 122 Pulse Oximetry 97 94 97 Oxygen Delivery Method Room Air Room Air Room Air Sepsis Recent Fever Within 48 Hours No Sepsis New/Unexplained Change in Mental Status N/A Sepsis Action Taken by Nursing No Action Required 01/02/23 19:10 Temperature Temperature Source Pulse Rate 84 Respiratory Rate Respiratory Effort / Characteristics Respiratory Depth Blood Pressure Blood Pressure Mean Pulse Oximetry Oxygen Delivery Method Sepsis Recent Fever Within 48 Hours Sepsis New/Unexplained Change in Mental Status Sepsis Action Taken by Nursing GENERAL: Patient is awake alert in no acute distress patient is resting comfortably and showing no signs of anxiety EYES: The conjunctivae are clear. The pupils are round and reactive. EARS, NOSE, MOUTH AND THROAT: The nose is without any evidence of any deformity. Mucous membranes are moist. Tongue is midline. NECK: The neck is nontender and supple. RESPIRATORY: Normal respiratory effort is noted there is no evidence of wheezing rhonchi or rales CARDIOVASCULAR: Regular rate and rhythm noted there no murmurs rubs or gallops normal S1 normal S2. GASTROINTESTINAL: The abdomen is soft. Abdomen is nontender. BACK: No midline tenderness or or step-off noted range of motion in flexion extension as well as rotation no signs of muscle spasm noted MUSCULOSKELETAL/EXTREMITIES: There is no evidence of gross deformity full range of motion is noted in the hips and shoulders. Calves are nontender bilaterally SKIN: There is no obvious evidence of any rash. There are no petechiae, pallor or cyanosis noted. NEUROLOGIC: Patient is awake alert and oriented x3 strength is symmetric Course Reevaluation(s) Reevaluation #1: Patient's resting in no distress on repeat examination. Patient states that she does not take aspirin. The case was discussed with the patient and the patient's family at bedside. [facility]: 20[facility]27 Reevaluation #2: I discussed the evaluation with the patient at bedside. She states occasional chest pressure. I discussed that we will be admitting her to the hospital Time: 20:33 Consultations [facility]ation [facility] Haynes Time: 20:27 Administered Medications Discontinued Medications Aspirin (Aspirin Chew 324 Mg) 324 mg PO NOW STA Stop: 01/02/23 19:20 Last Admin: 01/02/23 19:22 Dose: 324 mg Documented By: BRIGHT Medical Decision Making Medical Records Attestation: I reviewed the patient's medical records. Home Medications Current Medication List: was personally reviewed by me Laboratory Data Attestation: I reviewed the patient's lab results. Labs were interpreted by me as normal troponin, patient has hyponatremia 01/02/23 19:24 01/02/23 19:24 Lab Results 01/02/23 01/02/23 01/02/23 Range/Units 19:24 19:24 19:24 WBC 9.31 (4.8-10.8) K/ul RBC 3.94 L (4.20-5.40) M/uL Hgb 11.9 L (12.0-16.0) g/dl Hct 34.4 L (37.0-47.0) % MCV 87.3 (80.0-100.0) fL MCH 30.2 (25.0-34.0) pg MCHC 34.6 (32.0-36.0) g/dL RDW Std Deviation 41.2 (36.4-46.3) fL RDW Coeff of Tisha 13.0 (11.5-14.5) % Plt Count 242 (130-400) K/uL MPV 10.2 (9.4-12.4) fL Immature Gran % (Auto) 0.3 % Neut % (Auto) 64.6 % Lymph % (Auto) 23.5 % [place] % (Auto) 9.1 % Eos % (Auto) 1.9 % Baso % (Auto) 0.6 % Neut # (Auto) 6.00 (1.40-6.50) K/uL Lymph # (Auto) 2.19 (1.2-3.4) K/uL [place] # (Auto) 0.85 H (0.11-0.59) K/uL Eos # (Auto) 0.18 (0-0.50) K/uL Baso # (Auto) 0.06 (0-0.2) K/uL Immature Gran # (Auto) 0.03 (0.01-0.20) K/uL PT 10.9 (9.0-12.0) Seconds INR 1.0 (0.9-1.1) APTT 31.6 H (21.0-31.0) Seconds PTT Ratio 1.1 D-Dimer 240 (0-500) ug/L FEU Sodium 128 L (136-145) mmol/L Potassium 3.7 (3.5-5.1) mmol/L Chloride 95 L (98-107) mmol/L Carbon Dioxide 26 (21-32) mmol/L Anion Gap 7 (3-11) BUN 5 L (6-23) mg/dl Creatinine 0.71 (0.6-1.2) mg/dl Est Cr Clr Drug Dosing 136.1 ml/min Est GFR ( Amer) 115.1 ml/min Est GFR (Non-Af Amer) 99.3 ml/min BUN/Creatinine Ratio 7.0 L (10-20) Glucose 94 (70-99(Fasting)) mg/dl Calcium 9.1 (8.6-10.3) mg/dl Total Bilirubin 0.5 (0.2-1.0) mg/dl AST 26 (13-39) U/L ALT 22 (7-52) U/L Alkaline Phosphatase 100 (34-104) U/L Troponin I High Sens 3.5 (0-14) pg/ml Total Protein 7.3 (6.0-8.3) gm/dl Albumin 4.0 (3.4-5.0) gm/dl Globulin 3.3 (2.5-4.0) gm/dl Albumin/Globulin Ratio 1.2 (0.9-2) SARS-CoV-2, RNA, NAAT (NEGATIVE) 01/02/23 Range/Units 19:24 WBC (4.8-10.8) K/ul RBC (4.20-5.40) M/uL Hgb (12.0-16.0) g/dl Hct (37.0-47.0) % MCV (80.0-100.0) fL MCH (25.0-34.0) pg MCHC (32.0-36.0) g/dL RDW Std Deviation (36.4-46.3) fL RDW Coeff of Tisha (11.5-14.5) % Plt Count (130-400) K/uL MPV (9.4-12.4) fL Immature Gran % (Auto) % Neut % (Auto) % Lymph % (Auto) % [place] % (Auto) % Eos % (Auto) % Baso % (Auto) % Neut # (Auto) (1.40-6.50) K/uL Lymph # (Auto) (1.2-3.4) K/uL [place] # (Auto) (0.11-0.59) K/uL Eos # (Auto) (0-0.50) K/uL Baso # (Auto) (0-0.2) K/uL Immature Gran # (Auto) (0.01-0.20) K/uL PT (9.0-12.0) Seconds INR (0.9-1.1) APTT (21.0-31.0) Seconds PTT Ratio D-Dimer (0-500) ug/L FEU Sodium (136-145) mmol/L Potassium (3.5-5.1) mmol/L Chloride (98-107) mmol/L Carbon Dioxide (21-32) mmol/L Anion Gap (3-11) BUN (6-23) mg/dl Creatinine (0.6-1.2) mg/dl Est Cr Clr Drug Dosing ml/min Est GFR ( Amer) ml/min Est GFR (Non-Af Amer) ml/min BUN/Creatinine Ratio (10-20) Glucose (70-99(Fasting)) mg/dl Calcium (8.6-10.3) mg/dl Total Bilirubin (0.2-1.0) mg/dl AST (13-39) U/L ALT (7-52) U/L Alkaline Phosphatase (34-104) U/L Troponin I High Sens (0-14) pg/ml Total Protein (6.0-8.3) gm/dl Albumin (3.4-5.0) gm/dl Globulin (2.5-4.0) gm/dl Albumin/Globulin Ratio (0.9-2) SARS-CoV-2, RNA, NAAT NEGATIVE (NEGATIVE) Imaging Data Attestation: I personally reviewed and interpreted this imaging study as follows: My Impression: Chest x-ray interpreted by me negative for infiltrate normal mediastinum no obvious effusions no rib fractures ECG Data Attestation: I personally reviewed and interpreted this ECG as follows: Additional Comments: EKG interpreted by me normal sinus rhythm rate of 85 normal intervals normal axis no obvious ST segment elevation or depression Telemetry was ordered by me, interpreted as normal sinus rhythm rate of 82 MDM Narrative Medical decision making differential diagnosis includes angina, unstable angina, acute coronary syndrome, acute OK, pleurisy, pneumonia, rib fracture Plan is to check labs, EKG, chest x-ray, observe External medical records were reviewed by me Patient history was provided to me by the at bedside as well Patient's heart score is a 4 Do not suspect the patient have pulmonary embolism, the patient has chest pain, patient will be admitted for a cardiac rule out Impression & Plan Chest pain Discharge Plan Visit Data Chief Complaint: Chest Pain Stated Complaint: CHEST PAIN, ARM NUMBNESS ED Provider: Ottoniel Hernandez Discharge Problem: Chest pain Patient Disposition: Admitted As Inpatient Forms Stand Alone Forms: [facility] Prescriptions Prescriptions: No Action pantoprazole 40 mg tablet,delayed release (DR/EC) 40 mg PO BID Qty: 180 3RF cyclobenzaprine 10 mg tablet 10 mg PO TID PRN (Reason: muscle spasm) Qty: 90 5RF omega-3 fatty acids [Fish Oil Concentrate] 1,000 mg capsule 1,000 mg PO DAILY magnesium 250 mg tablet 500 mg PO DAILY multivitamin tablet 1 tab PO DAILY albuterol sulfate 90 mcg/actuation HFA aerosol inhaler 2 puffs inhalation Q4H PRN (Reason: Shortness Of Breath) Qty: 1 quetiapine 100 mg tablet 100 mg PO HS Rx Instructions: Take 100 mg along with 400 mg for a total dose of 500 mg quetiapine 400 mg tablet 400 mg PO HS Rx Instructions: Take 400 mg along with 100 mg for a total dosage of 500 mg lorazepam 0.5 mg tablet 0.5 mg PO DAILY PRN (Reason: Anxiety) prazosin 2 mg capsule 2 mg PO HS trazodone 100 mg tablet 100 mg PO HS duloxetine 60 mg capsule,delayed release(DR/EC) 60 mg PO DAILY Qty: 90 1RF acetaminophen-codeine 300-30 mg tablet 1 tab PO DAILY PRN (Reason: pain) Qty: 30 0RF oxcarbazepine 300 mg tablet See Rx Instructions PO BID PRN (Reason: Insomnia) Qty: 0 0RF Patient Comments: 600mg PO BID PRN and 300mg at bedtime; Rx Instructions: 600mg PO QAM and 900mg PO at bedtime; paroxetine HCl 40 mg Tablet 40 mg PO DAILY budesonide-formoterol [Symbicort] 160-4.5 mcg/actuation HFA aerosol inhaler 2 puff inhalation BID PRN (Reason: Shortness Of Breath Or Wheezing) Referrals Referrals: Jim Chappell MD [Primary Care Provider] -
[2023-01-02 20:06] LABS: Albumin Globulin Ratio 1.2 (0.9-2); Bilirubin,Total 0.5 mg/dl (0.2-1.0); Calcium 9.1 mg/dl (8.6-10.3); Creatinine Clr Calc Pharmacy 136.1 ml/min; Est GFR (African American) 115.1 ml/min; Est GFR (Non-African American) 99.3 ml/min; Globulin 3.3 gm/dl (2.5-4.0); Potassium 3.7 mmol/L (3.5-5.1); Total Protein 7.3 gm/dl (6.0-8.3)
[2023-01-02 20:07] LABS: Basophils # (auto) 0.06 K/uL (0-0.2); Basophils % (auto) 0.6 %; Eosinophils # (auto) 0.18 K/uL (0-0.50); Eosinophils % (auto) 1.9 %; Hematocrit (blood only) 34.4 % (37.0-47.0); Hemoglobin 11.9 g/dl (12.0-16.0); Immature Granulocytes # (auto) 0.03 K/uL (0.01-0.20); Immature Granulocytes % (auto) 0.3 %; Lymphocytes # (auto) 2.19 K/uL (1.2-3.4); Lymphocytes % (auto) 23.5 %; Mean Corpuscular Hemoglobin 30.2 pg (25.0-34.0); Mean Corpuscular Hgb Conc 34.6 g/dL (32.0-36.0); Mean Corpuscular Volume 87.3 fL (80.0-100.0); Mean Platelet Volume 10.2 fL (9.4-12.4); Monocytes # (auto) 0.85 K/uL (0.11-0.59); Monocytes % (auto) 9.1 %; Neutrophils % (auto) 64.6 %; Platelet Count 242 K/uL (130-400); RDW Standard Deviation 41.2 fL (36.4-46.3); Red Blood Count 3.94 M/uL (4.20-5.40); White Blood Count 9.31 K/ul (4.8-10.8)
[2023-01-02 20:13] LABS: D Dimer 240 ug/L FEU (0-500); Partial Thromboplastin Ratio 1.1; Partial Thromboplastin Time 31.6 Seconds (21.0-31.0); Prothrombin Time 10.9 Seconds (9.0-12.0); Troponin I High Sensitivity 3.5 pg/ml (0-14)
--- NOTE | 2023-01-02 21:58 | History & Physical Report ---
Date of Service January 02, 2023 Assessment & Plan (1) Chest pain: Plan: 52-year-old female with no significant cardiac past medical history presented with left-sided chest pain radiating to left arm EKG personally reviewed; normal sinus rhythm, no ST or T wave changes High sensitive troponin 3.5 on admission. Chest x-ray personally reviewed; no infiltrates. No acute findings Admitted for observation. Trend troponin. Cardiac consultation for possible stress test tomorrow AM. N.p.o. from midnight Repeat EKG in AM. Obtain lipid panel, A1c in a.m. (2) Hyponatremia: Plan: History of SIADH with chronic hyponatremia. Sodium of 128 on presentation Obtain urine electrolytes, urine osmolarity. Fluid restriction of 1200 cc Repeat BMP in a.m. Plan Other conditions; Hypertensioncontinue losartan 50 mg. Patient may need additional antihypertensive or increment in dose of losartan depending on her blood pressure readings. Monitor for now. GERDcontinue Protonix Schizoaffective disordercontinue on Klonopin, bupropion, duloxetine, sertraline and Seroquel Fibromyalgiaon Cymbalta, also taking Tylenol with codeine for flares. Time spent evaluating patient, direct bedside care, chart review, placing orders, interpretation of diagnostic studies, discussion with consultants, patient, and family members, as well as other required patient management activities is 90 minutes. Please note the above document was generated using voice recognition software. It may contain grammatical, syntax or spelling errors. Any formal questions or concerns about the content, text or information contained within the body of this dictation should be directly addressed to the provider for clarification History of Present Illness Chief Complaint: Chest pain for 1 day Primary Care Provider: Jim Chappell MD History obtained from interview with the patient and chart review. Past medical history of asthma, morbid obesity, GERD, fibromyalgia, hypertension panic disorder, schizoaffective disorder. Last confinement in April 2019 with pneumonia and hyponatremia. Patient presents to the ED with an episode of chest discomfort radiating to her underarm today. Patient was driving when the episode occurred. The chest pain improved after presented to the ED without any intervention. Patient also reported shortness of breath intermittently when it happened. She denies shortness of breath presently. Patient denies cough, fever, chills or dizziness, weakness/numbness of any body part. Patient denies any prior episode of chest pain in the past. She reports she is able to walk 2 flights of stairs without stopping. No significant cardiac history. On presentation to the ED, patient was hypertensive, afebrile and saturating well on room air. EKG showed normal sinus rhythm with no ST or T wave abnormalities. High-sensitivity troponin was negative. Patient was given aspirin. She was found to have hyponatremia with sodium of 128. Past medical history; as above Social history; used to smoke 1.5 packs/day for 20 years. Quit in April 2019. Family history; mother with diabetes, breast cancer, thyroid cancer. Father with lung disorder and heart disease. Allergies Allergy/AdvReac Type Severity Reaction Status Date / Time aripiprazole Allergy Mild Unknown Verified 01/02/23 21:05 pregabalin Allergy Mild blurry Verified 01/02/23 21:05 vision Sulfa (Sulfonamide Allergy Mild RASH Verified 01/02/23 21:05 Antibiotics) azithromycin Allergy Unknown Unknown Verified 01/02/23 21:05 erythromycin base Allergy Unknown RXN Verified 01/02/23 21:05 UNKNOWN,BUT TOLD HER NOT TO TAKE ANYMORE Penicillins Allergy Unknown Unknown Verified 01/02/23 21:05 prednisone Allergy Unknown Unknown Verified 01/02/23 21:05 sulfamethoxazole Allergy Unknown UNKNOWN Verified 01/02/23 21:05 trimethoprim Allergy Unknown UNKNOWN Verified 01/02/23 21:05 aspirin AdvReac Mild upset Verified 01/02/23 21:05 stomach naproxen AdvReac Unknown Verified 01/02/23 21:05 varenicline [From Chantix] AdvReac Unknown Verified 01/02/23 21:05 Home Medications Medication Instructions Recorded Confirmed Type lorazepam 0.5 mg tablet 0.5 mg PO DAILY PRN breakthrough 12/24/18 01/02/23 Hist ory anxiety pantoprazole 40 mg tablet,delayed 40 mg PO BID #180 tabs 03/12/19 01/02/23 Rx release albuterol sulfate 90 mcg/actuation 2 puffs inhalation QID PRN 03/27/19 01/02/23 History aerosol inhaler Wheezing #1 g multivitamin 1 tab PO DAILY 03/27/19 01/02/23 History prazosin 2 mg capsule 2 mg PO HS 03/27/19 01/02/23 History quetiapine 400 mg tablet 400 mg PO HS 07/02/19 01/02/23 History paroxetine HCl 40 mg tablet 40 mg PO QAM 12/27/19 01/02/23 History acetaminophen 300 mg-codeine 30 mg 1 tab PO Q6 PRN Breakthrough Pain 01/02/23 01/02/23 History tablet bupropion HCl 100 mg tablet,12 hr 100 mg PO BID 01/02/23 01/02/23 History sustained-release bupropion HCl 75 mg tablet 75 mg PO .DAILY AT NOON 01/02/23 01/02/23 History clonazepam 0.5 mg tablet 0.5 mg PO HS 01/02/23 01/02/23 History cyclobenzaprine 10 mg tablet 10 mg PO TID 01/02/23 01/02/23 History duloxetine 60 mg capsule,delayed 60 mg PO QAM 01/02/23 01/02/23 History release furosemide 20 mg tablet 20 mg PO DAILY PRN leg swelling 01/02/23 01/02/23 History losartan 50 mg tablet 50 mg PO QAM 01/02/23 01/02/23 History magnesium oxide 500 mg capsule 500 mg PO BID 01/02/23 01/02/23 History omega 8-sio-mzy-fish oil 1,200 mg 1 cap PO DAILY 01/02/23 01/02/23 History (144 mg-216 mg) capsule (Fish Oil) oxcarbazepine 600 mg tablet 600 mg PO TID 01/02/23 01/02/23 History sertraline 100 mg tablet 100 mg PO QAM 01/02/23 01/02/23 History trazodone 50 mg tablet 50 mg PO QPM 01/02/23 01/02/23 History Past Med/Surg History Medical History (Updated 01/02/23 @ 20:28 by Ottoniel Hernandez DO) Acid reflux Acute hypoxemic respiratory failure Asthma Bilateral pneumonia Bilateral pulmonary infiltrates on chest x-ray Bipolar affective disorder Chronic obstructive pulmonary disease Chronic prescription opiate use Dyslipidemia Foot fracture, left Hypertension Hyponatremia Insomnia Morbid obesity with BMI of 40.0-44.9, adult Tobacco abuse disorder Yeast infection Surgical History H/O tubal ligation Status post hysteroscopic ablation of endometrium Family History Unknown Diabetes Other Hypertension Social History Smoking Status: Never smoker Tobacco Type: Cigarettes Age Started Using Tobacco: 14; packs per day: 1.5; Cigarettes Per Day: 30; Second Hand Exposure: No; Do You Dip or Chew Tobacco: No; Hx Alcohol Use: No Hx Substance Use: No Preferred Language: Kittitian Communication Ability: Effective 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 Normal insp/exp effort, no accessory muscle use Cardiovascular: RRR, no murmur, no edema Vessels: no JVD or carotid bruit Chest: normal inspection of chest Abdomen: normal bowel sounds, soft, nontender, no hepatosplenomegaly Musculoskeletal: no cyanosis or clubbing, extremities motor strength 5/5 Skin: no rashes, warm and dry normal turgor Neurologic: PERRL, EOMI, accommodation nl, no face palsy, no dysarthria CN's II- XI intact bilaterally and moves all extremities Psychiatric: A+Ox3, euthymic affect Results & Data Results & Data Vital Signs (Past 12 Hours) Vital Signs Temp Pulse Resp BP Pulse Ox O2 Del Method 01/02/23 20:30 81 15 161/92 H 95 Room Air 01/02/23 20:00 80 12 165/90 H 96 Room Air 01/02/23 19:30 81 15 145/81 H 96 Room Air 01/02/23 19:10 84 01/02/23 19:11 85 16 180/93 H 97 Room Air 01/02/23 19:09 94 Room Air 01/02/23 19:01 36.9 C 91 H 16 178/97 H 97 Room Air Laboratory Results Laboratory Results WBC 9.31 K/ul (4.8-10.8) 01/02/23 19:24 RBC 3.94 M/uL (4.20-5.40) L 01/02/23 19:24 Hgb 11.9 g/dl (12.0-16.0) L 01/02/23 19: Hct 34.4 % (37.0-47.0) L 01/02/23 19: MCV 87.3 fL (80.0-100.0) 01/02/23 19: MCH 30.2 pg (25.0-34.0) 01/02/23: MCHC 34.6 g/dL (32.0-36.0) 01/02/23 19: RDW Std Deviation 41.2 fL (36.4-46.3) 01/02/23: RDW Coeff of Tisha 13.0 % (11.5-14.5) 01/02/23: Plt Count 242 K/uL (130-400) 01/02/23: MPV 10.2 fL (9.4-12.4) 01/02/23: Immature Gran % (Auto) 0.3 % 01/02/23: Neut % (Auto) 64.6 % 01/02/23: Lymph % (Auto) 23.5 % 01/02/23 19: [place] % (Auto) 9.1 % 01/02/23: Eos % (Auto) 1.9 % 01/02/23: Baso % (Auto) 0.6 % 01/02/23: Neut # (Auto) 6.00 K/uL (1.40-6.50) 01/02/23: Lymph # (Auto) 2.19 K/uL (1.2-3.4) 01/02/23: [place] # (Auto) 0.85 K/uL (0.11-0.59) H 01/02/23: Eos # (Auto) 0.18 K/uL (0-0.50) 01/02/23: Baso # (Auto) 0.06 K/uL (0-0.2) 01/02/23: Immature Gran # (Auto) 0.03 K/uL (0.01-0.20) 01/02/23 19: PT 10.9 Seconds (9.0-12.0) 01/02/23 19:24 INR 1.0 (0.9-1.1) 01/02/23 19:24 APTT 31.6 Seconds (21.0-31.0) H 01/02/23 19:24 PTT Ratio 1.1 01/02/23 19:24 D-Dimer 240 ug/L FEU (0-500) 01/02/23 19:24 Sodium 128 mmol/L (136-145) L 01/02/23 19:24 Potassium 3.7 mmol/L (3.5-5.1) 01/02/23 19:24 Chloride 95 mmol/L (98-107) L 01/02/23 19:24 Carbon Dioxide 26 mmol/L (21-32) 01/02/23 19:24 Anion Gap 7 (3-11) 01/02/23 19:24 BUN 5 mg/dl (6-23) L 01/02/23 19:24 Creatinine 0.71 mg/dl (0.6-1.2) 01/02/23 19:24 Est Cr Clr Drug Dosing 136.1 ml/min 01/02/23 19:24 Est GFR ( Amer) 115.1 ml/min 01/02/23 19:24 Est GFR (Non-Af Amer) 99.3 ml/min 01/02/23 19:24 BUN/Creatinine Ratio 7.0 (10-20) L 01/02/23 19:24 Glucose 94 mg/dl (70-99(Fasting)) 01/02/23 19:24 Calcium 9.1 mg/dl (8.6-10.3) 01/02/23 19:24 Total Bilirubin 0.5 mg/dl (0.2-1.0) 01/02/23 19:24 AST 26 U/L (13-39) 01/02/23 19:24 ALT 22 U/L (7-52) 01/02/23 19:24 Alkaline Phosphatase 100 U/L (34-104) 01/02/23 19:24 Troponin I High Sens 3.5 pg/ml (0-14) 01/02/23 19:24 Total Protein 7.3 gm/dl (6.0-8.3) 01/02/23 19:24 Albumin 4.0 gm/dl (3.4-5.0) 01/02/23 19:24 Globulin 3.3 gm/dl (2.5-4.0) 01/02/23 19:24 Albumin/Globulin Ratio 1.2 (0.9-2) 01/02/23 19:24 SARS-CoV-2, RNA, NAAT NEGATIVE (NEGATIVE) 01/02/23 19:24 Code Status & VTE Plan VTE Prophylaxis Plan VTE Prophylaxis will be ordered: Yes
[2023-01-02] MEDS ORDERED: ALBUTEROL HFA 8 GM INHALER INH PRN (22:10)
[2023-01-02] MEDS ORDERED: PRAZOSIN HCL 1 MG CAP PO SCH (22:10)
[2023-01-02] MEDS ORDERED: FUROSEMIDE 20 MG TAB PO PRN (22:10)
[2023-01-02] MEDS ORDERED: NITROGLYCERIN SL 0.4 MG/TAB TAB SL PRN (22:10)
[2023-01-02] MEDS ORDERED: ACETAMINOPHEN W/CODEINE #3 1 TAB PO PRN (22:10)
[2023-01-02] MEDS ORDERED: LORazepam 0.5 MG TAB PO PRN (22:10)
[2023-01-02] MEDS ORDERED: traZODone HCL 50 MG TAB PO SCH (22:10)
[2023-01-02] MEDS ORDERED: ACETAMINOPHEN 325 MG TAB PO PRN (22:10)
[2023-01-02] MEDS ORDERED: QUEtiapine FUMARATE 200 MG TAB PO SCH (22:10)
[2023-01-02] MEDS ORDERED: clonazePAM 0.5 MG TAB PO SCH (22:10)
[2023-01-02] MEDS ORDERED: MAGNESIUM HYDROXIDE SUSP 30 ML UDC PO PRN (22:10)
[2023-01-02] MEDS ORDERED: POLYETHYLENE (MIRALAX) 17 GM PACK PO PRN (22:10)
[2023-01-02] MEDS ORDERED: Nursing to Pharmacy Communication SCH (23:15)
[2023-01-02] MEDS ORDERED: OXcarbazepine 150 MG TABLET PO ONE (23:30)
[2023-01-02 23:52] LABS: Urine Potassium 69.2 mmol/L
[2023-01-03 06:00] LABS: Basophils # (auto) 0.05 K/uL (0-0.2); Basophils % (auto) 0.7 %; Eosinophils # (auto) 0.17 K/uL (0-0.50); Eosinophils % (auto) 2.2 %; Hematocrit (blood only) 33.1 % (37.0-47.0); Hemoglobin 11.6 g/dl (12.0-16.0); Immature Granulocytes # (auto) 0.04 K/uL (0.01-0.20); Immature Granulocytes % (auto) 0.5 %; Lymphocytes # (auto) 2.16 K/uL (1.2-3.4); Lymphocytes % (auto) 28.3 %; Mean Corpuscular Volume 85.5 fL (80.0-100.0); Mean Platelet Volume 10.4 fL (9.4-12.4); Monocytes # (auto) 0.74 K/uL (0.11-0.59); Monocytes % (auto) 9.7 %; Neutrophils # (auto) 4.47 K/uL (1.40-6.50); Neutrophils % (auto) 58.6 %; Platelet Count 201 K/uL (130-400); RDW Coefficient of Variation 13.1 % (11.5-14.5); RDW Standard Deviation 40.3 fL (36.4-46.3); Red Blood Count 3.87 M/uL (4.20-5.40); White Blood Count 7.63 K/ul (4.8-10.8)
[2023-01-03 06:22] LABS: Albumin Globulin Ratio 1.2 (0.9-2); Albumin Level 3.7 gm/dl (3.4-5.0); BUN Creatinine Ratio 9.1 (10-20); Bilirubin,Total 0.6 mg/dl (0.2-1.0); Calcium 9.2 mg/dl (8.6-10.3); Chol HDL Ratio 3.4 (0-5); Creatinine Clr Calc Pharmacy 148.6 ml/min; Est GFR (African American) 119.4 ml/min; Globulin 3.2 gm/dl (2.5-4.0); Potassium 4.2 mmol/L (3.5-5.1); Total Protein 6.9 gm/dl (6.0-8.3)
[2023-01-03 06:29] LABS: Troponin I High Sensitivity 3.9 pg/ml (0-14)
--- NOTE | 2023-01-03 07:16 | XRay Report ---
SINGLE VIEW CHEST CLINICAL HISTORY: Atypical chest pain FINDINGS: An AP, portable, upright chest radiograph is compared to study dated 12/27/2019. The cardiom ediastinal silhouette is unremarkable. Chronic interstitial thickening is similar to previous. There are scattered foci of atelectasis. The lungs and pleural spaces are otherwise clear. No pneumothorax is seen. The bony thorax is grossly intact. IMPRESSION: No acute cardiopulmonary abnormality. ACT 112: Negative or not required by law. Electronically signed by: Henry Gonzalez M.D. 01/03/2023 7:14 AM
[2023-01-03 07:29] LABS: Estimated Average Glucose 151 mg/dl; Hemoglobin A1C 6.9 % (4.5-5.6)
[2023-01-03] MEDS ORDERED: ENOXAPARIN INJ 40 MG/0.4 ML SYR SQ SCH (09:00)
[2023-01-03] MEDS ORDERED: DULoxetine HCL 60 MG CAP PO SCH (09:00)
[2023-01-03] MEDS ORDERED: MULTIVITAMIN TAB PO SCH (09:00)
[2023-01-03] MEDS ORDERED: MAGNESIUM OXIDE 400 MG TAB PO SCH (09:00)
[2023-01-03] MEDS ORDERED: SERTRALINE HCL 100 MG TABLET PO SCH (09:00)
[2023-01-03] MEDS ORDERED: LOSARTAN POTASSIUM 50 MG TAB PO SCH (09:00)
[2023-01-03] MEDS ORDERED: OMEGA-3 (PURIFIED FISH OIL) 1 GM CAP PO SCH (09:00)
[2023-01-03] MEDS ORDERED: PARoxetine HCL 20 MG TAB PO SCH (09:00)
[2023-01-03] MEDS ORDERED: PANTOprazole 40 MG TAB PO SCH (09:00)
[2023-01-03] MEDS: OXcarbazepine 150 MG TABLET PO SCH ×2 (09:24→13:04)
[2023-01-03] MEDS: buPROPion SR 100 MG TABCR PO SCH ×2 (09:33→13:05)
[2023-01-03] MEDS: CYCLOBENZAPRINE HCL 10 MG TAB PO SCH ×3 (09:34→13:06)
--- NOTE | 2023-01-03 10:45 | Cardiology Consultation ---
Date of Consultation January 03, 2023 Assessment & Plan (1) Atypical chest pain: (2) Hyponatremia: Plan 52-year-old female presents to the emergency department with atypical chest discomfort. Cardiac enzymes within normal limits. No ischemic ECG changes. No dysrhythmias on telemetry. Recommend resting 2D transthoracic echocardiogram and exercise stress echocardiography for further evaluation. Blood pressure elevated since admission. Consider addition of amlodipine to improve blood pressure control pending review of stress test result. Would avoid calcium sparing diuretic in the setting of chronic hyponatremia. History of Present Illness Reason for Consultation: chest pain Requesting Physician: Dr. Cerna Attending Physician: Mike Cerna MD History of Present Illness 52-year-old female presents emergency department with chest pain. Patient reports driving in her car with her . She developed sudden onset of chest discomfort and arm numbness/paresthesias. Discomfort came on at rest and described as a pressure. Symptoms resolved without intervention. No aggravating or alleviating factors. No history of coronary disease, diabetes, congestive heart failure. Carries a longstanding history of anxiety disorder and hypertension. Currently pain-free. at bedside. Voices concern regarding stress and anxiety. Allergies Allergy/AdvReac Type Severity Reaction Status Date / Time aripiprazole Allergy Mild Unknown Verified 01/02/23 21:05 pregabalin Allergy Mild blurry Verified 01/02/23 21:05 vision Sulfa (Sulfonamide Allergy Mild RASH Verified 01/02/23 21:05 Antibiotics) azithromycin Allergy Unknown Unknown Verified 01/02/23 21:05 erythromycin base Allergy Unknown RXN Verified 01/02/23 21:05 UNKNOWN,BUT TOLD HER NOT TO TAKE ANYMORE Penicillins Allergy Unknown Unknown Verified 01/02/23 21:05 prednisone Allergy Unknown Unknown Verified 01/02/23 21:05 sulfamethoxazole Allergy Unknown UNKNOWN Verified 01/02/23 21:05 trimethoprim Allergy Unknown UNKNOWN Verified 01/02/23 21:05 aspirin AdvReac Mild upset Verified 01/02/23 21:05 stomach naproxen AdvReac Unknown Verified 01/02/23 21:05 varenicline [From Chantix] AdvReac Unknown Verified 01/02/23 21:05 Home Medications Medication Instructions Recorded Confirmed Type lorazepam 0.5 mg tablet 0.5 mg PO DAILY PRN breakthrough 12/24/18 01/02/23 History anxiety pantoprazole 40 mg tablet,delayed 40 mg PO BID #180 tabs 03/12/19 01/02/23 Rx release albuterol sulfate 90 mcg/actuation 2 puffs inhalation QID PRN 03/27/19 01/02/23 History aerosol inhaler Wheezing #1 g multivitamin 1 tab PO DAILY 03/27/19 01/02/23 History prazosin 2 mg capsule 2 mg PO HS 03/27/19 01/02/23 History quetiapine 400 mg tablet 400 mg PO HS 07/02/19 01/02/23 History paroxetine HCl 40 mg tablet 40 mg PO QAM 12/27/19 01/02/23 History acetaminophen 300 mg-codeine 30 mg 1 tab PO Q6 PRN Breakthrough Pain 01/02/23 01/02/23 History tablet bupropion HCl 100 mg tablet,12 hr 100 mg PO BID 01/02/23 01/02/23 History sustained-release bupropion HCl 75 mg tablet 75 mg PO .DAILY AT NOON 01/02/23 01/02/23 History clonazepam 0.5 mg tablet 0.5 mg PO HS 01/02/23 01/02/23 History cyclobenzaprine 10 mg tablet 10 mg PO TID 01/02/23 01/02/23 History duloxetine 60 mg capsule,delayed 60 mg PO QAM 01/02/23 01/02/23 History release furosemide 20 mg tablet 20 mg PO DAILY PRN leg swelling 01/02/23 01/02/23 History losartan 50 mg tablet 50 mg PO QAM 01/02/23 01/02/23 History magnesium oxide 500 mg capsule 500 mg PO BID 01/02/23 01/02/23 History omega 3-puz-olz-fish oil 1,200 mg 1 cap PO DAILY 01/02/23 01/02/23 History (144 mg-216 mg) capsule (Fish Oil) oxcarbazepine 600 mg tablet 600 mg PO TID 01/02/23 01/02/23 History sertraline 100 mg tablet 100 mg PO QAM 01/02/23 01/02/23 History trazodone 50 mg tablet 50 mg PO QPM 01/02/23 01/02/23 History Patient History Medical History (Updated 01/03/23 @ 10:43 by Delon Marquez DO) Acid reflux Acute hypoxemic respiratory failure Asthma Bilateral pneumonia Bilateral pulmonary infiltrates on chest x-ray Bipolar affective disorder Chronic obstructive pulmonary disease Chronic prescription opiate use Dyslipidemia Foot fracture, left Hypertension Hyponatremia Insomnia Morbid obesity with BMI of 40.0-44.9, adult Tobacco abuse disorder Yeast infection Surgical History H/O tubal ligation Status post hysteroscopic ablation of endometrium Family History Unknown Diabetes Other Hypertension Social History Smoking Status: Former smoker Tobacco Type: Cigarettes Age Started Using Tobacco: 14; packs per day: 1.5; Cigarettes Per Day: 30; Smoking End Date: 2016; Second Hand Exposure: No; Do You Dip or Chew Tobacco: No; Hx Alcohol Use: No Hx Substance Use: No Preferred Language: Somali Communication Ability: Effective Hammer Fitter Required: No Beliefs That Will Affect Care: None Current Living Situation: Spouse Other Information That Helps Us Care for You: No Feels Safe at Home: Yes Safety Concerns: Feels Safe At This Time Assistive Devices: None Review of Systems Review of Systems: All systems reviewed & are unremarkable except as noted in Subjective Physical Exam Constitutional: well nourished and + obese; no acute distress Respiratory: normal respiratory effort; no respiratory distress, no labored breathing and no retractions Auscultation: lungs clear to auscultation bilaterally; no crackles, no rales, no rhonchi and no wheezes Cardiovascular: Rate/Rhythm: regular rate and regular rhythm Heart Sounds: normal S1 and normal S2; no murmur Vessels: radial pulses present; no JVD and no carotid bruit Extremities: no edema Gastrointestinal (Abdomen): Inspection/Auscultation: normal bowel sounds; abdomen not distended Percussion/Palpation: abdomen soft; abdomen nontender, no guarding and abdomen not rigid Neurologic: CN's II-XI intact bilaterally and moves all extremities; no focal motor deficits Psychiatric: A+Ox3, euthymic affect Results & Data Vital Signs (Past 12 Hours) Vital Signs Temp Pulse Pulse Resp BP Pulse Ox O2 Del Method 01/03/23 07:29 36.6 C 73 18 153/77 H 96 Room Air 01/03/23 03:53 36.6 C 73 16 150/85 H 95 Room Air 01/03/23 01:08 36.7 C 110 H 16 188/101 H 97 Room Air 01/02/23 23:00 92 H Laboratory Results Cardiac Enzymes 01/02/23 01/02/23 01/03/23 Range/Units 19: 22: 05:26 AST 26 27 (13-39) U/L Troponin I High Sens 3.5 3.9 3.9 (0-14) pg/ml Coagulation 01/02/23 Range/Units 19:24 PT 10.9 (9.0-12.0) Seconds APTT 31.6 H (21.0-31.0) Seconds Lipids 01/03/23 Range/Units 05:26 Triglycerides 101 (0-150) mg/dl Cholesterol 165 (0-200) mg/dl HDL Cholesterol 48 mg/dl Cholesterol/HDL Ratio 3.4 (0-5) CBC 01/02/23 01/03/23 Range/Units 19:24 05:26 WBC 9.31 7.63 (4.8-10.8) K/ul RBC 3.94 L 3.87 L (4.20-5.40) M/uL Hgb 11.9 L 11.6 L (12.0-16.0) g/dl Hct 34.4 L 33.1 L (37.0-47.0) % Plt Count 242 201 (130-400) K/uL Neut # (Auto) 6.00 4.47 (1.40-6.50) K/uL Lymph # (Auto) 2.19 2.16 (1.2-3.4) K/uL Carter # (Auto) 0.85 H 0.74 H (0.11-0.59) K/uL Eos # (Auto) 0.18 0.17 (0-0.50) K/uL Baso # (Auto) 0.06 0.05 (0-0.2) K/uL Comprehensive Metabolic Panel 01/02/23 01/03/23 Range/Units 19:24 05:26 Sodium 128 L 127 L (136-145) mmol/L Potassium 3.7 4.2 (3.5-5.1) mmol/L Chloride 95 L 93 L (98-107) mmol/L Carbon Dioxide 26 27 (21-32) mmol/L BUN 5 L 6 (6-23) mg/dl Creatinine 0.71 0.66 (0.6-1.2) mg/dl Glucose 94 140 H (70-99(Fasting)) mg/dl Calcium 9.1 9.2 (8.6-10.3) mg/dl AST 26 27 (13-39) U/L ALT 22 21 (7-52) U/L Alkaline Phosphatase 100 87 (34-104) U/L Total Protein 7.3 6.9 (6.0-8.3) gm/dl Albumin 4.0 3.7 (3.4-5.0) gm/dl Intake and Output 01/02/23 01/03/23 01/03/23 22:59 06:59 14:59 Intake Total 470 / 470 Balance 470 / 470 Intake: Oral 470 / 470 Other: # Unmeasured Voids 1 Weight 131.5 kg 134.9 kg Weight Measurement Method Chair Scale Built in [facility]
[2023-01-03] MEDS ORDERED: DOBUTamine HCL 12.5 MG/ML 20 ML VIAL IV ONE (11:15)
[2023-01-03] MEDS ORDERED: ATROPINE SULFATE 0.1 MG/ML 10ML SYR IV ONE (11:15)
[2023-01-03] MEDS ORDERED: METOPROLOL TARTRATE 1 MG/ML VIAL IV ONE (11:15)
[2023-01-03] MEDS ORDERED: PERFLUTREN LIPID MICROSPHERE (DEFINITY) IV ONE (13:41)
--- NOTE | 2023-01-03 13:41 | Electrocardiogram Report ---
Test Reason : Blood Pressure : / mmHG Vent. Rate : 085 BPM Atrial Rate : 085 BPM P-R Int : 182 ms QRS Dur : 090 ms QT Int : 392 ms P-R-T Axes : 054 008 058 degrees QTc Int : 466 ms Normal sinus rhythm Normal ECG When compared with ECG of 27-DEC-2019 19:02, No significant change was found Confirmed by Dipesh Pradhan ([id number]) on 01/03/2023 1:40:44 PM Referred By: REFERRED SELF Confirmed By:Dipesh Pradhan
--- NOTE | 2023-01-03 13:54 | Electrocardiogram Report ---
Test Reason : Blood Pressure : / mmHG Vent. Rate : 072 BPM Atrial Rate : 072 BPM P-R Int : 226 ms QRS Dur : 082 ms QT Int : 444 ms P-R-T Axes : 047 008 051 degrees QTc Int : 486 ms Suspect V1, V3 lead reversal Sinus rhythm with 1st degree A-V block Low voltage QRS Cannot rule out Anterior infarct , age undetermined Abnormal ECG When compared with ECG of 02-JAN-2023 19:08, (unconfirmed) WA interval has increased Confirmed by Dipesh Pradhan ([id number]) on 01/03/2023 1:53:50 PM Referred By: REFERRED SELF Confirmed By:Dipesh Pradhan
[2023-01-03] MEDS ORDERED: buPROPion HCl 75 MG TABLET PO SCH (14:00)
[2023-01-03] MEDS ORDERED: amLODIPine BESYLATE 5 MG TAB PO SCH (14:30)
--- NOTE | 2023-01-03 14:52 | Discharge Summary ---
Date of Service January 03, 2023 Admission HPI Per Admitting Provider History obtained from interview with the patient and chart review. Past medical history of asthma, morbid obesity, GERD, fibromyalgia, hypertension panic disorder, schizoaffective disorder. Last confinement in April 2019 with pneumonia and hyponatremia. Patient presents to the ED with an episode of chest discomfort radiating to her underarm today. Patient was driving when the episode occurred. The chest pain improved after presented to the ED without any intervention. Patient also reported shortness of breath intermittently when it happened. She denies shortness of breath presently. Patient denies cough, fever, chills or dizziness, weakness/numbness of any body part. Patient denies any prior episode of chest pain in the past. She reports she is able to walk 2 flights of stairs without stopping. No significant cardiac history. On presentation to the ED, patient was hypertensive, afebrile and saturating well on room air. EKG showed normal sinus rhythm with no ST or T wave abnormalities. High-sensitivity troponin was negative. Patient was given aspirin. She was found to have hyponatremia with sodium of 128. Past medical history; as above Social history; used to smoke 1.5 packs/day for 20 years. Quit in April 2019. Family history; mother with diabetes, breast cancer, thyroid cancer. Father with lung disorder and heart disease. Admission Exam Per Admitting Provider Constitutional: WD/WN, vitals as above, NAD, sitting up in bed, pleasant, conversing easily Respiratory: normal respiratory effort, lungs clear to auscultation, no wheeze, rales, rhonchi. Normal insp/exp effort, no accessory muscle use Cardiovascular: RRR, no murmur, no edema Vessels: no JVD or carotid bruit Chest: normal inspection of chest Abdomen: normal bowel sounds, soft, nontender, no hepatosplenomegaly Musculoskeletal: no cyanosis or clubbing, extremities motor strength 5/5 Skin: no rashes, warm and dry normal turgor Neurologic: PERRL, EOMI, accommodation nl, no face palsy, no dysarthria CN's II- XI intact bilaterally and moves all extremities Psychiatric: A+Ox3, euthymic affect Principal Diagnosis Chest pain Discharge Exam General: Morbidly obese, sitting comfortably in bed, not in distress, on room air HEENT: EOMI, SAM, MMM Chest: Clear breath sounds bilaterally, no wheezes or crackles CVS: Regular rate and rhythm, normal heart sounds, no murmur Abdomen: Soft, non tender, not distended, normal bowel sounds Neuro: Awake, alert, oriented, conversing well, non focal Extremities: No cyanosis, clubbing or edema Psych: Calm, cooperative, pleasant Discharge Data Allergies Allergy/AdvReac Type Severity Reaction Status Date / Time aripiprazole Allergy Mild Unknown Verified 01/02/23 21:05 pregabalin Allergy Mild blurry Verified 01/02/23 21:05 vision Sulfa (Sulfonamide Allergy Mild RASH Verified 01/02/23 21:05 Antibiotics) azithromycin Allergy Unknown Unknown Verified 01/02/23 21:05 erythromycin base Allergy Unknown RXN Verified 01/02/23 21:05 UNKNOWN,BUT TOLD HER NOT TO TAKE ANYMORE Penicillins Allergy Unknown Unknown Verified 01/02/23 21:05 prednisone Allergy Unknown Unknown Verified 01/02/23 21:05 sulfamethoxazole Allergy Unknown UNKNOWN Verified 01/02/23 21:05 trimethoprim Allergy Unknown UNKNOWN Verified 01/02/23 21:05 aspirin AdvReac Mild upset Verified 01/02/23 21:05 stomach naproxen AdvReac Unknown Verified 01/02/23 21:05 varenicline [From Chantix] AdvReac Unknown Verified 01/02/23 21:05 Consultations 01/02/23 20:22 ED Decision to Admit Stat 01/03/23 08:00 Consult Cardiology Routine Ordered Studies Laboratory Results WBC 7.63 K/ul (4.8-10.8) 01/03/23 05:26 RBC 3.87 M/uL (4.20-5.40) L 01/03/23 05:26 Hgb 11.6 g/dl (12.0-16.0) L 01/03/23 05:26 Hct 33.1 % (37.0-47.0) L 01/03/23 05:26 MCV 85.5 fL (80.0-100.0) 01/03/23 05:26 MCH 30.0 pg (25.0-34.0) 01/03/23 05:26 MCHC 35.0 g/dL (32.0-36.0) 01/03/23 05:26 RDW Std Deviation 40.3 fL (36.4-46.3) 01/03/23 05:26 RDW Coeff of Tisha 13.1 % (11.5-14.5) 01/03/23 05:26 Plt Count 201 K/uL (130-400) 01/03/23 05:26 MPV 10.4 fL (9.4-12.4) 01/03/23 05:26 Immature Gran % (Auto) 0.5 % 01/03/23 05:26 Neut % (Auto) 58.6 % 01/03/23 05:26 Lymph % (Auto) 28.3 % 01/03/23 05:26 Graham % (Auto) 9.7 % 01/03/23 05:26 Eos % (Auto) 2.2 % 01/03/23 05:26 Baso % (Auto) 0.7 % 01/03/23 05:26 Neut # (Auto) 4.47 K/uL (1.40-6.50) 01/03/23 05:26 Lymph # (Auto) 2.16 K/uL (1.2-3.4) 01/03/23 05:26 Graham # (Auto) 0.74 K/uL (0.11-0.59) H 01/03/23 05:26 Eos # (Auto) 0.17 K/uL (0-0.50) 01/03/23 05:26 Baso # (Auto) 0.05 K/uL (0-0.2) 01/03/23 05:26 Immature Gran # (Auto) 0.04 K/uL (0.01-0.20) 01/03/23 05:26 PT 10.9 Seconds (9.0-12.0) 01/02/23 19:24 INR 1.0 (0.9-1.1) 01/02/23 19:24 APTT 31.6 Seconds (21.0-31.0) H 01/02/23 19:24 PTT Ratio 1.1 01/02/23 19:24 D-Dimer 240 ug/L FEU (0-500) 01/02/23 19:24 Sodium 127 mmol/L (136-145) L 01/03/23 05:26 Potassium 4.2 mmol/L (3.5-5.1) 01/03/23 05:26 Chloride 93 mmol/L (98-107) L 01/03/23 05:26 Carbon Dioxide 27 mmol/L (21-32) 01/03/23 05:26 Anion Gap 7 (3-11) 01/03/23 05:26 BUN 6 mg/dl (6-23) 01/03/23 05:26 Creatinine 0.66 mg/dl (0.6-1.2) 01/03/23 05:26 Est Cr Clr Drug Dosing 148.6 ml/min 01/03/23 05:26 Est GFR ( Amer) 119.4 ml/min 01/03/23 05:26 Est GFR (Non-Af Amer) 103.0 ml/min 01/03/23 05:26 BUN/Creatinine Ratio 9.1 (10-20) L 01/03/23 05:26 Glucose 140 mg/dl (70-99(Fasting)) H 01/03/23 05:26 Estimat Average Glucose 151 mg/dl 01/03/23 05:26 Hemoglobin A1c 6.9 % (4.5-5.6) H 01/03/23 05:26 Calcium 9.2 mg/dl (8.6-10.3) 01/03/23 05:26 Total Bilirubin 0.6 mg/dl (0.2-1.0) 01/03/23 05:26 AST 27 U/L (13-39) 01/03/23 05:26 ALT 21 U/L (7-52) 01/03/23 05:26 Alkaline Phosphatase 87 U/L (34-104) 01/03/23 05:26 Troponin I High Sens 3.9 pg/ml (0-14) 01/03/23 05:26 Total Protein 6.9 gm/dl (6.0-8.3) 01/03/23 05:26 Albumin 3.7 gm/dl (3.4-5.0) 01/03/23 05:26 Globulin 3.2 gm/dl (2.5-4.0) 01/03/23 05:26 Albumin/Globulin Ratio 1.2 (0.9-2) 01/03/23 05:26 Triglycerides 101 mg/dl (0-150) 01/03/23 05:26 Cholesterol 165 mg/dl (0-200) 01/03/23 05:26 LDL Cholesterol, Calc 97 mg/dl 01/03/23 05:26 VLDL Cholesterol, Calc 20 mg/dl (0-30) 01/03/23 05:26 HDL Cholesterol 48 mg/dl 01/03/23 05:26 Cholesterol/HDL Ratio 3.4 (0-5) 01/03/23 05:26 Urine Osmolality 488 mOsm/kg (500-800) L 01/02/23 Unknown Ur Random Creatinine 108.5 mg/dl 01/02/23 Unknown Urine Sodium 106 mmol/L 01/02/23 Unknown Urine Potassium 69.2 mmol/L 01/02/23 Unknown Urine Chloride 96 mmol/L 01/02/23 Unknown SARS-CoV-2, RNA, NAAT NEGATIVE (NEGATIVE) 01/02/23 19:24 Impressions Chest X-Ray 01/02/23 19:09 SINGLE VIEW CHEST CLINICAL HISTORY: Atypical chest pain FINDINGS: An AP, portable, upright chest radiograph is compared to study dated 12/27/2019. The cardiomediastinal silhouette is unremarkable. Chronic interstitial thickening is similar to previous. There are scattered foci of atelectasis. The lungs and pleural spaces are otherwise clear. No pneumothorax is seen. The bony thorax is grossly intact. IMPRESSION: No acute cardiopulmonary abnormality. ACT 112: Negative or not required by law. Electronically signed by: Henry Gonzalez M.D. 01/03/2023 7:14 AM Diabetes Follow up Diabetes Follow-up Needed for Newly Diagnosed Diabetes Hospital Course (1) Chest pain: 52-year-old female with no significant cardiac past medical history presented with left-sided chest pain radiating to left arm. Chest x-ray with no acute changes. EKG with normal sinus rhythm, no ST or T wave changes. Serial troponin negative. Seen by cardiology. Stress test was done which was negative for ischemia. Cleared by cardiology for discharge. If recurrent chest pain, plan for Lexiscan nuclear scan in future per cardiology. Added amlodipine for better blood pressure control per cardiology. Patient has been taking extra salt for her hyponatremia which might be driving her blood pressure up. Recommended cutting down her salt intake, rather have fluid restriction for her hyponatremia. (2) Hyponatremia: History of SIADH with chronic hyponatremia. Serum and urine electrolytes, osmolality reviewed Discussed that hyponatremia might be side effect of her oxcarbazepine and recommended discussing with her psychiatrist regarding switching medication Recommend fluid restrictions to 1200 cc rather than taking extra salt as this will worsen her hypertension. Takes Lasix as needed at home-room to work on. Recommend repeat BMP in a week and follow-up with PCP for further management with possible referral to nephrology if needed. Plan Hypertensioncontinue losartan 50 mg. Added amlodipine 5 mg at bedtime. Recommend cut down salt intake. Recommend follow-up with PCP for further management Bipolar disorder-on Trileptal---recommend discussing with psychiatry about possible change in Trileptal given her hyponatremia. Also on Seroquel and multiple other psychotropic medications. She is on multiple serotonergic agents- sertraline, Paxil, duloxetine putting her at risk for serotonin syndrome, however she tells me that her psychiatrist is weaning down her Paxil with addition of Zoloft and is being closely watched for. GERDcontinue Protonix Fibromyalgiaon Cymbalta, also taking Tylenol with codeine for flares. Newly diagnosed diabetes mellitus2-A1c 6.9. New diagnosis. Seen by personal development educator. Counseled on diet and exercise and follow-up with PCP for consideration of antidiabetic medications. Has follow-up with diabetes clinic. Morbid obesity-BMI 45. Weight loss recommended. Follow-up with PCP Total Time Total Time Spent Total Time Spent (In Minutes): 35 Discharge Plan Discharge Items Patient Disposition: Home - Self-Care Reason For Visit: CHEST PAIN Discharge Diagnosis: Chest pain Activity: Resume your previous activity Non-emergency contact: Primary Care Provider Call non-emergency contact if: you have any medication questions and your symptoms worsen Follow-up/Referrals: Jim Chappell MD [Primary Care Provider] - (Date & Time 01/09/2023 3:20 PM Provider Jim Chappell MD Department [facility] ) Diet: Carb Consistent or DM2 and Heart Healthy Addtl Attending Provider Instructions: Your stress test was negative and your heart enzymes have been negative. However your blood pressure has been high. We are adding amlodipine for better control of your blood pressure as per cardio recommendation. If you have recurrent chest pain, cardiology might consider lexiscan nuclear stress test in future. Your A1c is 6.9 suggesting new onset diabetes (normal <5.5). Recommend diet and exercise and follow up with family doctor to discuss addition of medicines to control your blood sugar. Continue fluid restriction (1200 cc daily) and recommend repeat blood work (BMP) in a week and follow up with family doctor You are on multiple psychotropic medications (paxil, zoloft, cymbalta etc) putting you at risk for serotonin syndrome. Recommend following up with your psychiatry or family doctor to discuss the medications Pending Studies at Discharge: No Stand-Alone Forms: My [facility], Smoking Cessation Medications and DC Order Prescriptions: New amlodipine 5 mg tablet 5 mg PO HS Qty: 30 0RF Continued pantoprazole 40 mg tablet,delayed release (DR/EC) 40 mg PO BID Qty: 180 3RF multivitamin tablet 1 tab PO DAILY albuterol sulfate 90 mcg/actuation HFA aerosol inhaler 2 puffs inhalation QID PRN (Reason: Wheezing) Qty: 1 quetiapine 400 mg tablet 400 mg PO HS lorazepam 0.5 mg tablet 0.5 mg PO DAILY PRN (Reason: breakthrough anxiety) prazosin 2 mg capsule 2 mg PO HS paroxetine HCl 40 mg Tablet 40 mg PO QAM furosemide 20 mg tablet 20 mg PO DAILY PRN (Reason: leg swelling) cyclobenzaprine 10 mg tablet 10 mg PO TID losartan 50 mg tablet 50 mg PO QAM duloxetine 60 mg capsule,delayed release(DR/EC) 60 mg PO QAM trazodone 50 mg tablet 50 mg PO QPM clonazepam 0.5 mg tablet 0.5 mg PO HS sertraline 100 mg tablet 100 mg PO QAM bupropion HCl 100 mg tablet sustained-release 12 hr 100 mg PO BID Rx Instructions: take 1 tablet in the morning and at noon bupropion HCl 75 mg tablet 75 mg PO .DAILY AT NOON oxcarbazepine 600 mg tablet 600 mg PO TID acetaminophen-codeine 300-30 mg tablet 1 tab PO Q6 PRN (Reason: Breakthrough Pain) magnesium oxide 500 mg Capsule 500 mg PO BID omega 0-[id number]-[id number]-fish oil [Fish Oil] 1,200 (144-216) mg Capsule 1 cap PO DAILY Discharge Orders: Discharge Order (Routine); Ordered 01/03/23 Ordered By: Mike Avery/Other Patient Handouts: Exercise: Why Fitness Matters, Diabetes: Meal Planning, Type 2 Diabetes Admission Data Admit Date/Time: 01/02/23 20:56 Attending Provider: Mike Cerna Admit Provider: Darwin Haynes Primary Care Provider: Jim Chappell Other Providers: Darwin Haynes ; Kelly Puckett ; Yash Solis ; Fran Marks ; Delon Marquez ; Gab Carmen ; Elver Pereira ; Ana Mcnally ; Maria Zaragoza ; Kelly Hammonds ; Prieto Candelaria ; Vanesa Morley Other Interventions: Discharge Summary Assessment (RN) Last Done: 01/03/23 14:33
== END 2023-01-03 15:37 | disposition home or self-care (01) ==
LOC: 2S 18:46 → ED 18:46 → 2S 21:47

== ENCOUNTER 2025-06-20 12:02 | Inpatient (IN) ==
[2025-06-20] MEDS: OPTIRAY 320 125ml IV ONE (12:28)
[2025-06-20 12:44] LABS: Hematocrit (blood only) 31.8 % (37.0-47.0); Hemoglobin 10.6 g/dL (12.0-16.0); Mean Corpuscular Hemoglobin 29.3 pg (25.0-34.0); Mean Corpuscular Volume 87.8 fL (80.0-100.0); Platelet Count 229 K/uL (130-400); RDW Standard Deviation 42.9 fL (36.4-46.3); Red Blood Count 3.62 M/uL (4.20-5.40); White Blood Count 6.70 K/ul (4.8-10.8)
--- NOTE | 2025-06-20 12:47 | CT Scan Report ---
CT angio head w con, CT angio neck with con, CT head/brain wo con CLINICAL HISTORY: 54 years-old Female with code stroke. Acute stroke like symptoms COMPARISON STUDY: None available TECHNIQUE: Unenhanced axial CT scan of the brain is performed. Subsequently, following the IV adminis tration of 120 cc of Optiray, CT angiogram of the head and neck was performed from the aortic arch to the skull apex. Images are reviewed in the axial, sagittal, and coronal planes. 3-D MIPS images are created and assessed. IV contrast was administered without complication. All measurements were obtain ed according to NASCET criteria. A dose lowering technique was utilized adhering to the principles of ALARA. CT DOSE: 1239.66 mGy.cm FINDINGS: CT BRAIN: There is no acute intracranial hemorrhage, midline shift, hydrocephalus, intracranial mass, territori al ischemia or abnormal extra-axial collections. No abnormal intra-axial or extra-axial enhancement. Mild involutional changes. Mastoid air cells and middle ear cavities are clear. No calvarial fracture . A benign appearing extra-axial calcification within the left posterior fossa on image 40 measures 6 mm. Paranasal sinuses are clear. CT ANGIOGRAM OF THE HEAD AND NECK: Aberrant right subclavian artery. The common and internal carotid arteries are widely patent. Atheros clerosis of the cavernous, clinoid and supraclinoid segments causes stenosis up to 50% on the right. The bilateral anterior and middle cerebral arteries are also patent with mild multifocal stenoses wit hin the middle cerebral arteries. The vertebrobasilar system and posterior cerebral arteries are wide ly patent. There is no aneurysm, high-grade stenosis, or proximal branch occlusion identified. Dural sinuses appear patent. Lung apices are clear. No pneumothorax. Unremarkable soft tissues. No acute fracture identified. Most apparently compression at T1-T3 is likely chronic. Subcentimeter hypodense right-sided thyroid nodul es. IMPRESSION: 1. No acute intracranial abnormality identified. 2. CTA of the head and neck demonstrates atherosclerosis without aneurysm, dissection, high-grade hugo nosis or arterial occlusion. 3. Aberrant course of the right subclavian artery. ACT 112: Negative or not required by law. The above report was generated using voice recognition software. It may contain grammatical, syntax o r spelling errors. Electronically signed by: Sushil Fisher M.D. 06/20/2025 12:45 PM
[2025-06-20 13:03] LABS: Alanine Aminotransferase 13.0 U/L (7-52); Albumin Globulin Ratio 1.1 (0.9-2); Albumin Level 3.1 gm/dl (3.4-5.0); Alkaline Phosphatase 102.0 U/L (34-104); Anion Gap 5.0 (3-11); Bilirubin,Total 0.3 mg/dl (0.2-1.0); Blood Urea Nitrogen 9.0 mg/dl (6-23); Calcium 7.8 mg/dl (8.6-10.3); Carbon Dioxide 21.0 mmol/L (21-32); Chloride 105.0 mmol/L (98-107); Creatinine Clr Calc Pharmacy 165.8 ml/min; Globulin 2.7 gm/dl (2.5-4.0); Glucose 130.0 mg/dl (70-99(Fasting)); Magnesium 1.6 mg/dl (1.7-2.4); Potassium 3.5 mmol/L (3.5-5.1); Sodium 131.0 mmol/L (136-145); Total Protein 5.8 gm/dl (6.0-8.3)
[2025-06-20 13:15] LABS: INR 1.0 (0.9-1.1); Partial Thromboplastin Time 31 Seconds (21-31); Prothrombin Time 10.6 Seconds (9.0-12.0)
--- NOTE | 2025-06-20 13:17 | XRay Report ---
XR chest 1V portable HISTORY: 54 years-old Female stroke alert acute stroke like symptoms COMPARISON: 01/03/2020 TECHNIQUE: AP view of the chest FINDINGS: Cardiac silhouette is enlarged. Atherosclerosis of the aorta. No pneumothorax, pleural effusion, airs pace consolidation or pulmonary edema. Degenerative changes of the shoulders and spine. IMPRESSION: No acute process. ACT 112: Negative or not required by law. The above report was generated using voice recognition software. It may contain grammatical, syntax o r spelling errors. Electronically signed by: Sushil Fisher M.D. 06/20/2025 1:16 PM
--- NOTE | 2025-06-20 13:44 | History & Physical Report ---
Date of Service June 20, 2025 Assessment & Plan (1) Stroke-like symptoms: (2) Acute CVA (cerebrovascular accident): Plan Patient is a 54y/o F with PMHx significant for diet-controlled DMII, chronic hyponatremia, asthma-COPD overlap syndrome, HTN, morbid obesity, GERD, fibrom yalgia, migraines, schizoaffective disorder, borderline personality disorder, panic disorder and chronic insomnia who presented to the ED via EMS for further eval of strokelike sx. #Strokelike sx #Acute infarcts involving the R parietal, posterior temporal and posterior R insula seen on brain MRI C/o acute confusion, BLE weakness, LUE weakness and numbness, dysarthria, L facial drooping, L facial numbness CHECKER STOCKER beginnning around 8:30-9AM BLE weakness, confusion resolved Still with c/o LUE weakness and numbness, mild dysarthria, slight L facial droop and numbness in ED with recorded NIHSS = [address]: no acute intracranial abnormality identified Head/neck CTA: -demonstrates atherosclerosis without aneurysm, dissection, high-grade stenosis or arterial occlusion -aberrant course of the right subclavian artery Not seen by telestroke neuro in ED Loaded with 324mg ASA in ED D/w [facility] neuro on-call who recommended Plavix load, DAPT; will see in consult Brain MRI: acute infarcts involving the right parietal, posterior temporal and posterior right insula TTE pending Appreciate neuro consult NSR on tele in ED, continue tele monitoring Q2H neurochecks, follow NIHSS scores; stroke protocol #HTN Hold antiHTNs for now Allow for permissive HTN, maintain BP up to 220/120 for 1st 24hr as per guidelines #Chronic hypoNa Prior serum Na level 127 as of 02/2025, serum Na 131 today Unclear etiology however feel could be possibly 2/2 SIADH in light of psychotropic med use Check serum osm, urine osm, urine electrolytes, TSH 1.8 FFR for now Continue to monitor #Schizoaffective disorder #Borderline personality disorder #Panic disorder Recent increase in both her Wellbutrin and Seroquel doses >> again feel c/t hypoNa F/w psychiatrist at [facility] Continue current psych reg for now Consideration of med adjustments on OP basis given persistence of hypoNa, risk of worsening #GERD Continue PPI #Chronic insomnia Will monitor off trazodone for now #Hypomagnesemia Repleted via IV Continue to monitor and replete PRN #Anemia F/u anemia eval in AM Continue to monitor #Hypocalcemia Ionized Ca WNL, check vit D level in AM DVT Prophylaxis: SCDs/TEDs Code Status: FULL CODE PCP: Jim Chappell MD Disposition: Admit to med/telemetry Patient seen in collaboration with Dr. Buchanan. Please see addendum. I spent a total of 76 minutes coordinating, documenting, and providing care for this patient excluding time spent in the performance of separately billed services or time spent by another provider/QHP. This included personally reviewing all current laboratories and imaging studies, medical reconciliation, outpatient chart review and discussion with specialists. History of Present Illness Chief Complaint: Strokelike sx Primary Care Provider: Jim Chappell MD Patient is a 54y/o F with PMHx significant for diet-controlled DMII, chronic hyponatremia, asthma-COPD overlap syndrome, HTN, morbid obesity, GERD, fibromyalgia, migraines, schizoaffective disorder, borderline personality disorder, panic disorder and chronic insomnia who presented to the ED via EMS for further eval of strokelike sx. History obtained from the patient, family at bedside, discussion with ED provider and associated chart review. LKW around 3AM this morning. Acute onset of confusion, dysarthria, BLE weakness, LUE weakness and numbness, L-sided facial numbness and L facial drooping around 8:30-9AM this morning upon waking. Reported witnesses to this event including patient's , other family members. Attempted to get up from couch and fell to the floor as her legs "gave out." Was able to crawl to kitchen chair and pull herself up with her R side. States LUE felt extremely weak and numb. Notes she was unable to move her LUE much at all. Family members noted she was slurring her speech, talking in context that was difficult to understand. Some appreciated L facial drooping as well. EMS was then called. Confusion, BLE weakness resolved in ED. Also had a mild MOBLEY CHECKER STOCKER which has resolved. Still with LUE weakness and numbness, mostly unchanged. Also with slight L facial drooping, mild dysarthria, L-sided facial numbness. NIHSS 7 in ED. Was not called stroke alert. Was not seen by telestroke neurology. Loaded with 324mg ASA in ED. Head CT with no acute abnormalities. CTA of the head and neck demonstrated atherosclerosis without aneurysm, dissection, high-grade hugo nosis or arterial occlusion. Patient is being admitted for full stroke eval. Allergies Allergy/AdvReac Type Severity Reaction Status Date / Time aripiprazole Allergy Mild Unknown Verified 01/02/23 21:05 pregabalin Allergy Mild blurry Verified 01/02/23 21:05 vision Sulfa (Sulfonamide Allergy Mild RASH Verified 01/02/23 21:05 Antibiotics) azithromycin Allergy Unknown Unknown Verified 01/02/23 21:05 erythromycin base Allergy Unknown RXN Verified 01/02/23 21:05 UNKNOWN,BUT TOLD HER NOT TO TAKE ANYMORE Penicillins Allergy Unknown Unknown Verified 01/02/23 21:05 prednisone Allergy Unknown Unknown Verified 01/02/23 21:05 sulfamethoxazole Allergy Unknown UNKNOWN Verified 01/02/23 21:05 trimethoprim Allergy Unknown UNKNOWN Verified 01/02/23 21:05 aspirin AdvReac Mild upset Verified 01/02/23 21:05 stomach naproxen AdvReac Unknown Verified 01/02/23 21:05 varenicline [From Chantix] AdvReac Unknown Verified 01/02/23 21:05 Home Medications Medication Instructions Recorded Confirmed Type pantoprazole 40 mg tablet,delayed 40 mg PO BID #180 tabs 03/12/19 06/20/25 Rx release albuterol sulfate 90 mcg/actuation 2 puffs inhalation QID PRN 03/27/19 06/20/25 History aerosol inhaler Wheezing #1 g multivitamin 1 tab PO DAILY 03/27/19 06/20/25 History prazosin 2 mg capsule 2 mg PO HS 03/27/19 06/20/25 History bupropion HCl 100 mg tablet,12 hr 100 mg PO BID 01/02/23 06/20/25 History sustained-release cyclobenzaprine 10 mg tablet 10 mg PO TID 01/02/23 06/20/25 History duloxetine 60 mg capsule,delayed 60 mg PO QAM 01/02/23 06/20/25 History release losartan 50 mg tablet 50 mg PO QAM 01/02/23 06/20/25 History magnesium oxide 500 mg capsule 500 mg PO BID 01/02/23 06/20/25 History omega 3-ypt-dnp-fish oil 1,200 mg 1 cap PO DAILY 01/02/23 06/20/25 History (144 mg-216 mg) capsule (Fish Oil) oxcarbazepine 600 mg tablet 600 mg PO TID 01/02/23 06/20/25 History sertraline 100 mg tablet 100 mg PO QAM 01/02/23 06/20/25 History trazodone 50 mg tablet 50 mg PO QPM 01/02/23 06/20/25 History amlodipine 5 mg tablet 5 mg PO HS 06/20/25 06/20/25 History bupropion HCl 75 mg tablet 75 mg PO DAILY 06/20/25 06/20/25 History clonazepam 0.5 mg tablet See Rx Instructions .Route 06/20/25 06/20/25 History .COMPLEX PRN Anxiety quetiapine 25 mg tablet 25 mg PO BID 06/20/25 06/20/25 History quetiapine 400 mg tablet 400 mg PO HS 06/20/25 06/20/25 History topiramate 50 mg tablet 50 mg PO BID 06/20/25 06/20/25 History Past Med/Surg History Problem List (Updated 06/20/25 @ 16:25 by Yamile Soto PA-C) Acute CVA (cerebrovascular accident) Stroke-like symptoms Cerebrovascular accident (Acute) Acid reflux (Chronic) Asthma (Chronic) Bipolar affective disorder (Chronic) Chronic obstructive pulmonary disease (Chronic) Chronic prescription opiate use (Chronic) Dyslipidemia (Chronic) Hypertension (Chronic) Insomnia (Chronic) Bilateral pneumonia Tobacco abuse disorder Hyponatremia Acute hypoxemic respiratory failure Bilateral pulmonary infiltrates on chest x-ray Morbid obesity with BMI of 40.0-44.9, adult Candidiasis of mouth and esophagus Non-productive cough Fibromyalgia (Chronic) Depression (Chronic) Back pain (Chronic) Anxiety (Chronic) Acne (Chronic) Chronic back pain (Chronic 02/13/13) Edema (Acute) Migraine (Chronic) Medical History (Updated 06/20/25 @ 16:25 by Yamile Soto PA-C) Yeast infection Foot fracture, left Surgical History H/O tubal ligation Status post hysteroscopic ablation of endometrium Family History Unknown Diabetes Other Hypertension Social History Smoking Status: Former smoker Tobacco Type: Cigarettes Age Started Using Tobacco: 14; packs per day: 1.5; Cigarettes Per Day: 30; Smoking End Date: 2018; Second Hand Exposure: No; Do You Dip or Chew Tobacco: No; Tobacco Cessation Education Requested by Patient: No Hx Alcohol Use: No Hx Substance Use: No Preferred Language: Georgian Communication Ability: Effective Polymerization Helper Required: No Beliefs That Will Affect Care: None and Caodaism Caodaism Beliefs: Cheondoism Current Living Situation: Spouse Other Information That Helps Us Care for You: No Feels Safe at Home: Yes Safety Concerns: Feels Safe At This Time Assistive Devices: Glasses Review of Systems Review of Systems: At least ten systems reviewed and negative, except as noted in the HPI. Physical Exam Physical Exam: General: Middle-aged F, NAD, sitting up in bed, A&Ox3 HEENT: Normocephalic, atraumatic, + L facial numbness, + slight L facial drooping Respiratory: Normal respiratory effort, CTAB Cardiovascular: RRR, normal peripheral pulses, no BLE edema Abdomen/GI: Normal bowel sounds, soft, nontender to palpation in all quadrants Extremities/Musculoskeletal: + RUE pronator drift, + RUE numbness, 4/5 RUE strength, 5/5 LUE strength, intact BLE strength Neurologic: + mild dysarthria, +LUE ataxia Results & Data Results & Data Vital Signs (Past 12 Hours) Vital Signs Temp Pulse Resp BP Pulse Ox O2 Del Method 06/20/25 13:26 78 20 151/81 H 99 06/20/25 13:00 76 18 138/81 100 06/20/25 13:00 78 12 138/81 99 06/20/25 12:45 99 Room Air 06/20/25 12:41 79 15 146/76 H 100 06/20/25 12:31 82 16 189/91 H 98 06/20/25 12:29 82 06/20/25 12:25 89 18 167/121 H 100 06/20/25 12:03 36.5 C 84 18 149/79 H 99 Room Air Laboratory Results Short CBC 06/20/25 Range/Units 12:31 WBC 6.70 (4.8-10.8) K/ul Hgb 10.6 L (12.0-16.0) g/dL Hct 31.8 L (37.0-47.0) % Plt Count 229 (130-400) K/uL BMP 06/20/25 12:31 Sodium 131 L Potassium 3.5 Chloride 105 Carbon Dioxide 21 BUN 9 Creatinine 0.58 L Glucose 130 H Calcium 7.8 L Liver Function 06/20/25 Range/Units 12:31 Total Bilirubin 0.3 (0.2-1.0) mg/dl AST 13 (13-39) U/L ALT 13 (7-52) U/L Alkaline Phosphatase 102 (34-104) U/L Albumin 3.1 L (3.4-5.0) gm/dl Diagnostic Findings Chest X-Ray 06/20/25 12:14 XR chest 1V portable HISTORY: 54 years-old Female stroke alert acute stroke like symptoms COMPARISON: 01/03/2020 TECHNIQUE: AP view of the chest FINDINGS: Cardiac silhouette is enlarged. Atherosclerosis of the aorta. No pneumothorax, pleural effusion, airspace consolidation or pulmonary edema. Degenerative changes of the shoulders and spine. IMPRESSION: No acute process. ACT 112: Negative or not required by law. The above report was generated using voice recognition software. It may contain grammatical, syntax or spelling errors. Electronically signed by: Sushil Fisher M.D. 06/20/2025 1:[address] 06/20/25 12:14 CT angio head w con, CT angio neck with con, CT head/brain wo con CLINICAL HISTORY: 54 years-old Female with code stroke. Acute stroke like symptoms COMPARISON STUDY: None available TECHNIQUE: Unenhanced axial CT scan of the brain is performed. Subsequently, following the IV administration of 120 cc of Optiray, CT angiogram of the head and neck was performed from the aortic arch to the skull apex. Images are reviewed in the axial, sagittal, and coronal planes. 3-D MIPS images are created and assessed. IV contrast was administered without complication. All measurements were obtained according to NASCET criteria. A dose lowering technique was utilized adhering to the principles of ALARA. CT DOSE: 1239.66 mGy.cm FINDINGS: CT BRAIN: There is no acute intracranial hemorrhage, midline shift, hydrocephalus, intracranial mass, territorial ischemia or abnormal extra-axial collections. No abnormal intra-axial or extra-axial enhancement. Mild involutional changes. Mastoid air cells and middle ear cavities are clear. No calvarial fracture. A b enign appearing extra-axial calcification within the left posterior fossa on image 40 measures 6 mm. Paranasal sinuses are clear. CT ANGIOGRAM OF THE HEAD AND NECK: Aberrant right subclavian artery. The common and internal carotid arteries are widely patent. Atherosclerosis of the cavernous, clinoid and supraclinoid segments causes stenosis up to 50% on the right. The bilateral anterior and middle cerebral arteries are also patent with mild multifocal stenoses within the middle cerebral arteries. The vertebrobasilar system and posterior cerebral arteries are widely patent. There is no aneurysm, high-grade stenosis, or proximal branch occlusion identified. Dural sinuses appear patent. Lung apices are clear. No pneumothorax. Unremarkable soft tissues. No acute fracture identified. Most apparently compression at T1-T3 is likely chronic. Subcentimeter hypodense right-sided thyroid nodules. IMPRESSION: 1. No acute intracranial abnormality identified. 2. CTA of the head and neck demonstrates atherosclerosis without aneurysm, dissection, high-grade stenosis or arterial occlusion. 3. Aberrant course of the right subclavian artery. ACT 112: Negative or not required by law. The above report was generated using voice recognition software. It may contain grammatical, syntax or spelling errors. Electronically signed by: Sushil Fisher M.D. 06/20/2025 12:45 PM Head CTA 06/20/25 12:16 CT angio head w con, CT angio neck with con, CT head/brain wo con CLINICAL HISTORY: 54 years-old Female with code stroke. Acute stroke like s ymptoms COMPARISON STUDY: None available TECHNIQUE: Unenhanced axial CT scan of the brain is performed. Subsequently, following the IV administration of 120 cc of Optiray, CT angiogram of the head and neck was performed from the aortic arch to the skull apex. Images are reviewed in the axial, sagittal, and coronal planes. 3-D MIPS images are created and assessed. IV contrast was administered without complication. All measurements were obtained according to NASCET criteria. A dose lowering technique was utilized adhering to the principles of ALARA. CT DOSE: 1239.66 mGy.cm FINDINGS: CT BRAIN: There is no acute intracranial hemorrhage, midline shift, hydrocephalus, intracranial mass, territorial ischemia or abnormal extra-axial collections. No abnormal intra-axial or extra-axial enhancement. Mild involutional changes. Mastoid air cells and middle ear cavities are clear. No calvarial fracture. A benign appearing extra-axial calcification within the left posterior fossa on image 40 measures 6 mm. Paranasal sinuses are clear. CT ANGIOGRAM OF THE HEAD AND NECK: Aberrant right subclavian artery. The common and internal carotid arteries are widely patent. Atherosclerosis of the cavernous, clinoid and supraclinoid segments causes stenosis up to 50% on the right. The bilateral anterior and middle cerebral arteries are also patent with mild multifocal stenoses within the middle cerebral arteries. The vertebrobasilar system and posterior cerebral arteries are widely patent. There is no aneurysm, high-grade stenosis, or proximal branch occlusion identified. Dural sinuses appear patent. Lung apices are clear. No pneumothorax. Unremarkable soft tissues. No acute fracture identified. Most apparently compression at T1-T3 is likely chronic. Subcentimeter hypodense right-sided thyroid nodules. IMPRESSION: 1. No acute intracranial abnormality identified. 2. CTA of the head and neck demonstrates atherosclerosis without aneurysm, dissection, high-grade stenosis or arterial occlusion. 3. Aberrant course of the right subclavian artery. ACT 112: Negative or not required by law. The above report was generated using voice recognition software. It may contain grammatical, syntax or spelling errors. Electronically signed by: Sushil Fisher M.D. 06/20/2025 12:45 PM Neck CTA 06/20/25 12:16 CT angio head w con, CT angio neck with con, CT head/brain wo con CLINICAL HISTORY: 54 years-old Female with code stroke. Acute stroke like symptoms COMPARISON STUDY: None available TECHNIQUE: Unenhanced axial CT scan of the brain is performed. Subsequently, following the IV administration of 120 cc of Optiray, CT angiogram of the head and neck was performed from the aortic arch to the skull apex. Images are review ed in the axial, sagittal, and coronal planes. 3-D MIPS images are created and assessed. IV contrast was administered without complication. All measurements were obtained according to NASCET criteria. A dose lowering technique was utilized adhering to the principles of ALARA. CT DOSE: 1239.66 mGy.cm FINDINGS: CT BRAIN: There is no acute intracranial hemorrhage, midline shift, hydrocephalus, intracranial mass, territorial ischemia or abnormal extra-axial collections. No abnormal intra-axial or extra-axial enhancement. Mild involutional changes. Mastoid air cells and middle ear cavities are clear. No calvarial fracture. A benign appearing extra-axial calcification within the left posterior fossa on image 40 measures 6 mm. Paranasal sinuses are clear. CT ANGIOGRAM OF THE HEAD AND NECK: Aberrant right subclavian artery. The common and internal carotid arteries are widely patent. Atherosclerosis of the cavernous, clinoid and supraclinoid segments causes stenosis up to 50% on the right. The bilateral anterior and middle cerebral arteries are also patent with mild multifocal stenoses within the middle cerebral arteries. The vertebrobasilar system and posterior cerebral arteries are widely patent. There is no aneurysm, high-grade stenosis, or proximal branch occlusion identified. Dural sinuses appear patent. Lung apices are clear. No pneumothorax. Unremarkable soft tissues. No acute fracture identified. Most apparently compression at T1-T3 is likely chronic. Subcentimeter hypodense right-sided thyroid nodules. IMPRESSION: 1. No acute intracranial abnormality identified. 2. CTA of the head and neck demonstrates atherosclerosis without aneurysm, dissection, high-grade stenosis or arterial occlusion. 3. Aberrant course of the right subclavian artery. ACT 112: Negative or not required by law. The above report was generated using voice recognition software. It may contain grammatical, syntax or spelling errors. Electronically signed by: Sushil Fisher M.D. 06/20/2025 12:45 PM Medications Administered Magnesium Sulfate/Dextrose (Magnesium Sulfate / D5w) 1 gm in 100 mls @ 100 mls/hr IV Q1H MONICA Stop: 06/20/25 16:39 Last Admin: 06/20/25 15:04 Dose: 100 mls/hr Documented By: cad Discontinued Medications Aspirin (Aspirin 81 Mg Chew) 324 mg PO NOW STA Stop: 06/20/25 13:33 Last Admin: 06/20/25 13:45 Dose: 324 mg Documented By: danie Ioversol (Optiray 320 125ml) 120 ml IV ONCE ONE Stop: 06/20/25 12:28 Last Admin: 06/20/25 12:28 Dose: 120 ml Documented By: JAR Supervising Physician Co-Signing Physician Notes I have seen and discussed the case with the collaborating advanced practitioner. I agree with the above H&P. I have reviewed and confirmed the patients medical history, the findings on physical examination, and the patients diagnosis and treatment plan with Charles ORTIZ and agree with the information documented. evaluated in ED. reports lots of stress and mother with history of a fib and strokes. States she feels like her legs are better, but still having a hard time with getting her left arm to move where she wants it to go denies vision changes or other acute concerns. all other symptoms noted on arrival were resolved exam notable for dysdiadochokinesia noted with LUE finger to nose testing and 4/5 LUE strength, LLE intact with heel to hyatt testing, CN II-XII intact MRI obtained and reviewed: Acute infarcts involving the right parietal, post erior temporal and posterior right insula. #Acute right parietal stroke loaded with plavix, asa continue both disucssed with Neuro, appreciate further recs monitor on tele given suspicion of cardioembolic process rest of plan as above #Chronic hyponatremia undergoing multiple psych med adjustments, prudent to watch and consider outpatient nephro monitoring/psychiatry collaboration labs tests as above rest of plan as above I spent a total of 15 minutes coordinating, documenting, and providing care for this patient excluding time spent in the performance of separately billed services. All of the aforementioned completed outside of collaborating with the assigned advanced practitioner for a full treatment plan. I have reviewed the advanced practitioner's documentation, and I agree with, and take responsibility for the plan of care
[2025-06-20] MEDS: ASPIRIN 81 MG CHEW PO STA (13:45)
--- NOTE | 2025-06-20 13:54 | Emergency Department Note ---
History of Present Illness General Chief complaint: Stroke/CVA Symptoms Stated complaint: WEAKNESS Time Seen by Provider: 06/20/25 12:16 History of Present Illness Provider complaint: Stroke symptoms 54-year-old female presents emergency department for stroke symptoms. Patient issues sleeping was woken up by phone call at 9 AM. She states when she went to reach for her phone she could not move her left arm. Patient says she went to bed around 3 AM. No falls or trauma. Patient is not on any blood thinners. Home Medications Medication Instructions Recorded Confirmed Type lorazepam 0.5 mg tablet 0.5 mg PO DAILY PRN breakthrough 12/24/18 01/02/23 History anxiety pantoprazole 40 mg tablet,delayed 40 mg PO BID #180 tabs 03/12/19 01/02/23 Rx release albuterol sulfate 90 mcg/actuation 2 puffs inhalation QID PRN 03/27/19 01/02/23 History aerosol inhaler Wheezing #1 g multivitamin 1 tab PO DAILY 03/27/19 01/02/23 History prazosin 2 mg capsule 2 mg PO HS 03/27/19 01/02/23 History quetiapine 400 mg tablet 400 mg PO HS 07/02/19 01/02/23 History paroxetine HCl 40 mg tablet 40 mg PO QAM 12/27/19 01/02/23 History acetaminophen 300 mg-codeine 30 mg 1 tab PO Q6 PRN Breakthrough Pain 01/02/23 01/02/23 History tablet bupropion HCl 100 mg tablet,12 hr 100 mg PO BID 01/02/23 01/02/23 History sustained-release bupropion HCl 75 mg tablet 75 mg PO .DAILY AT NOON 01/02/23 01/02/23 History clonazepam 0.5 mg tablet 0.5 mg PO HS 01/02/23 01/02/23 History cyclobenzaprine 10 mg tablet 10 mg PO TID 01/02/23 01/02/23 History duloxetine 60 mg capsule,delayed 60 mg PO QAM 01/02/23 01/02/23 History release furosemide 20 mg tablet 20 mg PO DAILY PRN leg swelling 01/02/23 01/02/23 History losartan 50 mg tablet 50 mg PO QAM 01/02/23 01/02/23 History magnesium oxide 500 mg capsule 500 mg PO BID 01/02/23 01/02/23 History omega 2-hwa-iir-fish oil 1,200 mg 1 cap PO DAILY 01/02/23 01/02/23 History (144 mg-216 mg) capsule (Fish Oil) oxcarbazepine 600 mg tablet 600 mg PO TID 01/02/23 01/02/23 History sertraline 100 mg tablet 100 mg PO QAM 01/02/23 01/02/23 History trazodone 50 mg tablet 50 mg PO QPM 01/02/23 01/02/23 History amlodipine 5 mg tablet 5 mg PO HS #30 tabs 01/03/23 Rx Allergies Allergy/AdvReac Type Severity Reaction Status Date / Time aripiprazole Allergy Mild Unknown Verified 01/02/23 21:05 pregabalin Allergy Mild blurry Verified 01/02/23 21:05 vision Sulfa (Sulfonamide Allergy Mild RASH Verified 01/02/23 21:05 Antibiotics) azithromycin Allergy Unknown Unknown Verified 01/02/23 21:05 erythromycin base Allergy Unknown RXN Verified 01/02/23 21:05 UNKNOWN,BUT TOLD HER NOT TO TAKE ANYMORE Penicillins Allergy Unknown Unknown Verified 01/02/23 21:05 prednisone Allergy Unknown Unknown Verified 01/02/23 21:05 sulfamethoxazole Allergy Unknown UNKNOWN Verified 01/02/23 21:05 trimethoprim Allergy Unknown UNKNOWN Verified 01/02/23 21:05 aspirin AdvReac Mild upset Verified 01/02/23 21:05 stomach naproxen AdvReac Unknown Verified 01/02/23 21:05 varenicline [From Chantix] AdvReac Unknown Verified 01/02/23 21:05 Past Med/Surg History Problem List (Updated 06/20/25 @ 15:26 by Jonathan Delacruz MD) Cerebrovascular accident (Acute) Acid reflux (Chronic) Asthma (Chronic) Bipolar affective disorder (Chronic) Chronic obstructive pulmonary disease (Chronic) Chronic prescription opiate use (Chronic) Dyslipidemia (Chronic) Hypertension (Chronic) Insomnia (Chronic) Bilateral pneumonia Tobacco abuse disorder Hyponatremia Acute hypoxemic respiratory failure Bilateral pulmonary infiltrates on chest x-ray Morbid obesity with BMI of 40.0-44.9, adult Candidiasis of mouth and esophagus Non-productive cough Fibromyalgia (Chronic) Depression (Chronic) Back pain (Chronic) Anxiety (Chronic) Acne (Chronic) Chronic back pain (Chronic 02/13/13) Edema (Acute) Migraine (Chronic) Medical History (Updated 06/20/25 @ 15:26 by Jonathan Delacruz MD) Yeast infection Foot fracture, left Surgical History H/O tubal ligation Status post hysteroscopic ablation of endometrium Family History Unknown Diabetes Other Hypertension Social History Smoking Status: Never smoker Tobacco Type: Cigarettes Age Started Using Tobacco: 14; packs per day: 1.5; Cigarettes Per Day: 30; Second Hand Exposure: No; Do You Dip or Chew Tobacco: No; Hx Alcohol Use: No Hx Substance Use: No Preferred Language: Mosotho Communication Ability: Effective Cleaning Manager Required: No Beliefs That Will Affect Care: None Current Living Situation: Spouse Feels Safe at Home: Yes Assistive Devices: None Physical Exam Vital Signs Vital Signs - 24 hr 06/20/25 12:03 06/20/25 12:25 06/20/25 12:29 Temperature 36.5 C Temperature Source Temporal Artery Scan Pulse Rate 84 89 82 Pulse Rate [Apical] Respiratory Rate 18 18 Respiratory Effort / Characteristics Non-Labored Spontaneous Respiratory Depth Normal Respiratory Pattern Blood Pressure 149/79 H 167/121 H Blood Pressure [Right Arm] Blood Pressure Mean 102 132 Blood Pressure Mean [Right Arm] Pulse Oximetry 99 100 Oxygen Delivery Method Room Air Sepsis Recent Fever Within 48 Hours No Sepsis New/Unexplained Change in Mental Status N/A Sepsis Action Taken by Nursing No Action Required 06/20/25 12:31 06/20/25 12:41 06/20/25 12:45 Temperature Temperature Source Pulse Rate 82 79 Pulse Rate [Apical] Respiratory Rate 16 15 Respiratory Effort / Characteristics Respiratory Depth Respiratory Pattern Blood Pressure 189/91 H 146/76 H Blood Pressure [Right Arm] Blood Pressure Mean 134 100 Blood Pressure Mean [Right Arm] Pulse Oximetry 98 100 99 Oxygen Delivery Method Room Air Sepsis Recent Fever Within 48 Hours Sepsis New/Unexplained Change in Mental Status Sepsis Action Taken by Nursing 06/20/25 13:00 06/20/25 13:00 06/20/25 13:26 Temperature Temperature Source Pulse Rate 78 76 78 Pulse Rate [Apical] Respiratory Rate 12 18 20 Respiratory Effort / Characteristics Respiratory Depth Respiratory Pattern Blood Pressure 138/81 138/81 151/81 H Blood Pressure [Right Arm] Blood Pressure Mean 87 87 112 Blood Pressure Mean [Right Arm] Pulse Oximetry 99 100 99 Oxygen Delivery Method Sepsis Recent Fever Within 48 Hours Sepsis New/Unexplained Change in Mental Status Sepsis Action Taken by Nursing 06/20/25 14:30 06/20/25 15:02 Temperature Temperature Source Pulse Rate Pulse Rate [Apical] 85 85 Respiratory Rate 13 19 Respiratory Effort / Characteristics Non-Labored Spontaneous Respiratory Depth Normal Respiratory Pattern Regular Blood Pressure Blood Pressure [Right Arm] 105/75 160/86 H Blood Pressure Mean Blood Pressure Mean [Right Arm] 85 110 Pulse Oximetry 98 99 Oxygen Delivery Method Room Air Room Air Sepsis Recent Fever Within 48 Hours Sepsis New/Unexplained Change in Mental Status Sepsis Action Taken by Nursing Physical Exam GENERAL: oriented to person, place, and time. appears well-developed and well- nourished. HENT: Exam performed. - Head: Normocephalic and atraumatic. CV: Normal rate, regular rhythm, normal heart sounds and intact distal pulses. There is no peripheral edema. Palpable radial pulses bue. PULM/CHEST: Effort normal and breath sounds normal. No respiratory distress. No stridor. no wheezes. no rales. NEURO: NIHSS: 7 (3:1, 5a:1, 6a:1, 6b:1, 7:1, 8:1, 10:1) Course Course 1216: The patient was evaluated in room B1. A complete history and physical exam was performed Cardiac monitoring: An order was placed for continuous cardiac monitoring. The monitor shows a rate of 80 with sinus rhythm interpreted by me Stroke alert paged from triage. Patient's symptoms began on awakening. Last well-known normal was 0300 when the patient went to bed. Patient TNKase candidate. 1220: CT head viewed by me negative for ICH. 1332: Vital signs stable. CT head CTA head and neck unremarkable. Patient will be admitted for stroke workup. Administered Medications Magnesium Sulfate/Dextrose (Magnesium Sulfate / D5w) 1 gm in 100 mls @ 100 mls/hr IV Q1H MONICA Stop: 06/20/25 16:39 Last Admin: 06/20/25 15:04 Dose: 100 mls/hr Documented By: cad Discontinued Medications Aspirin (Aspirin 81 Mg Chew) 324 mg PO NOW STA Stop: 06/20/25 13:33 Last Admin: 06/20/25 13:45 Dose: 324 mg Documented By: danie Ioversol (Optiray 320 125ml) 120 ml IV ONCE ONE Stop: 06/20/25 12: Last Admin: 06/20/25 12: Dose: 120 ml Documented By: PAU Medical Decision Making Laboratory Data Attestation: I reviewed the patient's lab results. 06/20/25 12:31 06/20/25 12:31 Lab Results 06/20/25 06/20/25 06/20/25 Range/Units 12: 12: 12:33 WBC 6.70 (4.8-10.8) K/ul RBC 3.62 L (4.20-5.40) M/uL Hgb 10.6 L (12.0-16.0) g/dL POC Hgb 10.5 L (12.0-16.0) g/dl Hct 31.8 L (37.0-47.0) % POC Hct 31 L (37-47) % MCV 87.8 (80.0-100.0) fL MCH 29.3 (25.0-34.0) pg MCHC 33.3 (32.0-36.0) g/dL RDW Std Deviation 42.9 (36.4-46.3) fL RDW Coeff of Tisha 13.2 (11.5-14.5) % Plt Count 229 (130-400) K/uL MPV 10.4 (9.4-12.4) fL PT 10.6 (9.0-12.0) Seconds INR 1.0 (0.9-1.1) APTT 31 (21-31) Seconds PTT Ratio 1.1 POC Sodium 134 L (135-144) mmol/L Sodium 131 L (136-145) mmol/L POC Potassium 3.7 (3.3-5.0) mmol/L Potassium 3.5 (3.5-5.1) mmol/L POC Chloride 99 L (101-112) mmol/L Chloride 105 (98-107) mmol/L Carbon Dioxide 21 (21-32) mmol/L POC Total CO2 20 L (24-31) mmol/L Anion Gap 5 (3-11) POC Anion Gap 20.0 (16-25) mmol/L POC BUN 8 (7-18) mg/dl BUN 9 (6-23) mg/dl Creatinine 0.58 L (0.6-1.2) mg/dl POC Creatinine 0.8 (0.6-1.3) mg/dl Est Cr Clr Drug Dosing 165.8 ml/min eGFR 108.82 BUN/Creatinine Ratio 15.5 (10-20) Glucose 130 H (70-99(Fasting)) mg/dl POC Glucose 135 H (70-99) mg/dl POC Glucose (other) 125 H (70-99) mg/dl Calcium 7.8 L (8.6-10.3) mg/dl POC Ioniz Calcium Dung 1.14 (1.12-1.32) mmol/l Magnesium 1.6 L (1.7-2.4) mg/dl Total Bilirubin 0.3 (0.2-1.0) mg/dl AST 13 (13-39) U/L ALT 13 (7-52) U/L Alkaline Phosphatase 102 (34-104) U/L Troponin I High Sens 3.1 (0-14) pg/ml Total Protein 5.8 L (6.0-8.3) gm/dl Albumin 3.1 L (3.4-5.0) gm/dl Globulin 2.7 (2.5-4.0) gm/dl Albumin/Globulin Ratio 1.1 (0.9-2) Imaging Data Attestation: I personally reviewed and interpreted this imaging study as follows: My Impression: CT head: No ICH Radiologist's Impression: Chest X-Ray 06/20/25 12:14 XR chest 1V portable HISTORY: 54 years-old Female stroke alert acute stroke like symptoms COMPARISON: 01/03/2020 TECHNIQUE: AP view of the chest FINDINGS: Cardiac silhouette is enlarged. Atherosclerosis of the aorta. No pneumothorax, pleural effusion, airspace consolidation or pulmonary edema. Degenerative changes of the shoulders and spine. IMPRESSION: No acute process. ACT 112: Negative or not required by law. The above report was generated using voice recognition software. It may contain grammatical, syntax or spelling errors. Electronically signed by: Sushil Fisher M.D. 06/20/2025 1:[address] 06/20/25 12:14 CT angio head w con, CT angio neck with con, CT head/brain wo con CLINICAL HISTORY: 54 years-old Female with code stroke. Acute stroke like symptoms COMPARISON STUDY: None available TECHNIQUE: Unenhanced axial CT scan of the brain is performed. Subsequently, following the IV administration of 120 cc of Optiray, CT angiogram of the head and neck was performed from the aortic arch to the skull apex. Images are reviewed in the axial, sagittal, and coronal planes. 3-D MIPS images are created and assessed. IV contrast was administered without complication. All measurements were obtained according to NASCET criteria. A dose lowering technique was utilized adhering to the principles of ALARA. CT DOSE: 1239.66 mGy.cm FINDINGS: CT BRAIN: There is no acute intracranial hemorrhage, midline shift, hydrocephalus, intracranial mass, territorial ischemia or abnormal extra-axial collections. No abnormal intra-axial or extra-axial enhancement. Mild involutional changes. Mastoid air cells and middle ear cavities are clear. No calvarial fracture. A benign appearing extra-axial calcification within the left posterior fossa on image 40 measures 6 mm. Paranasal sinuses are clear. CT ANGIOGRAM OF THE HEAD AND NECK: Aberrant right subclavian artery. The common and internal carotid arteries are widely patent. Atherosclerosis of the cavernous, clinoid and supraclinoid segments causes stenosis up to 50% on the right. The bilateral anterior and middle cerebral arteries are also patent with mild multifocal stenoses within the middle cerebral arteries. The vertebrobasilar system and posterior cerebral arteries are widely patent. There is no aneurysm, high-grade stenosis, or proximal branch occlusion identified. Dural sinuses appear patent. Lung apices are clear. No pneumothorax. Unremarkable soft tissues. No acute fracture identified. Most apparently compression at T1-T3 is likely chronic. Subcentimeter hypodense right-sided thyroid nodules. IMPRESSION: 1. No acute intracranial abnormality identified. 2. CTA of the head and neck demonstrates atherosclerosis without aneurysm, dissection, high-grade stenosis or arterial occlusion. 3. Aberrant course of the right subclavian artery. ACT 112: Negative or not required by law. The above report was generated using voice recognition software. It may contain grammatical, syntax or spelling errors. Electronically signed by: Sushil Fisher M.D. 06/20/2025 12:45 PM Head CTA 06/20/25 12:16 CT angio head w con, CT angio neck with con, CT head/brain wo con CLINICAL HISTORY: 54 years-old Female with code stroke. Acute stroke like symptoms COMPARISON STUDY: None available TECHNIQUE: Unenhanced axial CT scan of the brain is performed. Subsequently, following the IV administration of 120 cc of Optiray, CT angiogram of the head and neck was performed from the aortic arch to the skull apex. Images are reviewed in the axial, sagittal, and coronal planes. 3-D MIPS images are created and assessed. IV contrast was administered without complication. All measurements were obtained according to NASCET criteria. A dose lowering technique was utilized adhering to the principles of ALARA. CT DOSE: 1239.66 mGy.cm FINDINGS: CT BRAIN: There is no acute intracranial hemorrhage, midline shift, hydrocephalus, intracranial mass, territorial ischemia or abnormal extra-axial collections. No abnormal intra-axial or extra-axial enhancement. Mild involutional changes. Mastoid air cells and middle ear cavities are clear. No calvarial fracture. A benign appearing extra-axial calcification within the left posterior fossa on image 40 measures 6 mm. Paranasal sinuses are clear. CT ANGIOGRAM OF THE HEAD AND NECK: Aberrant right subclavian artery. The common and internal carotid arteries are widely patent. Atherosclerosis of the cavernous, clinoid and supraclinoid segments causes stenosis up to 50% on the right. The bilateral anterior and middle cerebral arteries are also patent with mild multifocal stenoses within the middle cerebral arteries. The vertebrobasilar system and posterior cerebral arteries are widely patent. There is no aneurysm, high-grade stenosis, or proximal branch occlusion identified. Dural sinuses appear patent. Lung apices are clear. No pneumothorax. Unremarkable soft tissues. No acute fracture identified. Most apparently compression at T1-T3 is likely chronic. Subcentimeter hypodense right-sided thyroid nodules. IMPRESSION: 1. No acute intracranial abnormality identified. 2. CTA of the head and neck demonstrates atherosclerosis without aneurysm, dissection, high-grade stenosis or arterial occlusion. 3. Aberrant course of the right subclavian artery. ACT 112: Negative or not required by law. The above report was generated using voice recognition software. It may contain grammatical, syntax or spelling errors. Electronically signed by: Sushil Fisher M.D. 06/20/2025 12:45 PM Neck CTA 06/20/25 12:16 CT angio head w con, CT angio neck with con, CT head/brain wo con CLINICAL HISTORY: 54 years-old Female with code stroke. Acute stroke like symptoms COMPARISON STUDY: None available TECHNIQUE: Unenhanced axial CT scan of the brain is performed. Subsequently, following the IV administration of 120 cc of Optiray, CT angiogram of the head and neck was performed from the aortic arch to the skull apex. Images are reviewed in the axial, sagittal, and coronal planes. 3-D MIPS images are created and assessed. IV contrast was administered without complication. All measurements were obtained according to NASCET criteria. A dose lowering technique was utilized adhering to the principles of ALARA. CT DOSE: 1239.66 mGy.cm FINDINGS: CT BRAIN: There is no acute intracranial hemorrhage, midline shift, hydrocephalus, intracranial mass, territorial ischemia or abnormal extra-axial collections. No abnormal intra-axial or extra-axial enhancement. Mild involutional changes. Mastoid air cells and middle ear cavities are clear. No calvarial fracture. A benign appearing extra-axial calcification within the left posterior fossa on image 40 measures 6 mm. Paranasal sinuses are clear. CT ANGIOGRAM OF THE HEAD AND NECK: Aberrant right subclavian artery. The common and internal carotid arteries are widely patent. Atherosclerosis of the cavernous, clinoid and supraclinoid segments causes stenosis up to 50% on the right. The bilateral anterior and middle cerebral arteries are also patent with mild multifocal stenoses within the middle cerebral arteries. The vertebrobasilar system and posterior cerebral arteries are widely patent. There is no aneurysm, high-grade stenosis, or proximal branch occlusion identified. Dural sinuses appear patent. Lung apices are clear. No pneumothorax. Unremarkable soft tissues. No acute fracture identified. Most apparently compression at T1-T3 is likely chronic. Subcentimeter hypodense right-sided thyroid nodules. IMPRESSION: 1. No acute intracranial abnormality identified. 2. CTA of the head and neck demonstrates atherosclerosis without aneurysm, dissection, high-grade stenosis or arterial occlusion. 3. Aberrant course of the right subclavian artery. ACT 112: Negative or not required by law. The above report was generated using voice recognition software. It may contain grammatical, syntax or spelling errors. Electronically signed by: Sushil Fisher M.D. 06/20/2025 12:45 PM ECG Data Attestation: I personally reviewed and interpreted this ECG as follows: Rate (beats per minute): 83 Rhythm: + normal sinus ECG Intervals/blocks: + Normal QRS, + Normal [place] and + Normal QT-c ECG ST segments: + Normal ST segments [facility] Narrative 1216: The patient was evaluated in room B1. A complete history and physical exam was performed Cardiac monitoring: An order was placed for continuous cardiac monitoring. The monitor shows a rate of 80 with sinus rhythm interpreted by me Stroke alert paged from triage. Patient's symptoms began on awakening. Last well-known normal was 0300 when the patient went to bed. Patient TNKase candidate. 1220: CT head viewed by me negative for ICH. 1332: Vital signs stable. CT head CTA head and neck unremarkable. Patient will be admitted for stroke workup. Impression & Plan Cerebrovascular accident Discharge Plan Visit Data Chief Complaint: Stroke/CVA Symptoms Stated Complaint: WEAKNESS ED Provider: Jonathan Delacruz Discharge Problem: Cerebrovascular accident Patient Disposition: Admitted As Inpatient Condition: Fair Forms Stand Alone Forms: [facility] Prescriptions Prescriptions: No Action pantoprazole 40 mg tablet,delayed release (DR/EC) 40 mg PO BID Qty: 180 3RF multivitamin tablet 1 tab PO DAILY albuterol sulfate 90 mcg/actuation HFA aerosol inhaler 2 puffs inhalation QID PRN (Reason: Wheezing) Qty: 1 quetiapine 400 mg tablet 400 mg PO HS lorazepam 0.5 mg tablet 0.5 mg PO DAILY PRN (Reason: breakthrough anxiety) prazosin 2 mg capsule 2 mg PO HS paroxetine HCl 40 mg Tablet 40 mg PO QAM furosemide 20 mg tablet 20 mg PO DAILY PRN (Reason: leg swelling) cyclobenzaprine 10 mg tablet 10 mg PO TID losartan 50 mg tablet 50 mg PO QAM duloxetine 60 mg capsule,delayed release(DR/EC) 60 mg PO QAM trazodone 50 mg tablet 50 mg PO QPM clonazepam 0.5 mg tablet 0.5 mg PO HS sertraline 100 mg tablet 100 mg PO QAM bupropion HCl 100 mg tablet sustained-release 12 hr 100 mg PO BID Rx Instructions: take 1 tablet in the morning and at noon bupropion HCl 75 mg tablet 75 mg PO .DAILY AT NOON oxcarbazepine 600 mg tablet 600 mg PO TID acetaminophen-codeine 300-30 mg tablet 1 tab PO Q6 PRN (Reason: Breakthrough Pain) magnesium oxide 500 mg Capsule 500 mg PO BID omega 7-yeg-otr-fish oil [Fish Oil] 1,200 (144-216) mg Capsule 1 cap PO DAILY amlodipine 5 mg tablet 5 mg PO HS Qty: 30 0RF Referrals Referrals: Jim Chappell MD [Primary Care Provider] -
[2025-06-20] MEDS ORDERED: PHARMACIST DISCHARGE MED REC CONSULT PRN (14:39)
[2025-06-20] MEDS: MAGNESIUM SULFATE / D5W 1 GM/100 ML BAG IV SCH (15:04)
[2025-06-20] MEDS: GADOBUTROL 30ML VIAL IV ONE (16:06)
--- NOTE | 2025-06-20 16:16 | Magnetic Resonance Report ---
MRI of the brain performed with and without IV contrast History: Neuro deficit Comparison: Last none Technique: Multiplanar T1 weighted, axial T2/FLAIR, and susceptibility images were obtained without intravenous contrast. Following intravenous gadolinium based contrast administration, axial T2 weighted, diffusion, and T1-weighted images were obtained. Findings: No evidence for intracranial mass lesion, mass-effect, midline shift, or abnormal extra-axial fluid collection. Postcontrast images demonstrate no abnormal intracranial enhancement. The orbits are grossly unremarkable. The ventricles and sulci are within normal limits for age. Focal region of patchy restricted diffusion involving the right parietal and posterior temporal lobe and extending into the posterior right insular cortex. Normal intravascular flow voids. Impression: Acute infarcts involving the right parietal, posterior temporal and posterior right insula. Electronically signed by Tony Mcgrath 06-20-2025 4:16 PM
[2025-06-20 16:35] LABS: Thyroid Stimulating Hormone 1.728 uIu/ml (0.300-4.500)
[2025-06-20] MEDS: CLOPIDOGREL BISULFATE 300 MG TAB PO STA (16:36)
[2025-06-20] MEDS: ATORVASTATIN 40 MG TAB PO SCH (16:36)
--- NOTE | 2025-06-20 17:32 | XCELERA ---
[id number]
[2025-06-20] MEDS ORDERED: ACETAMINOPHEN 325 MG TAB PO PRN (18:09)
[2025-06-20] MEDS ORDERED: ONDANSETRON INJ 2 MG/ML 2 ML VIAL IV PRN (18:09)
[2025-06-20] MEDS ORDERED: POLYETHYLENE (MIRALAX) 17 GM PACK PO PRN (18:09)
[2025-06-20] MEDS ORDERED: MAGNESIUM HYDROXIDE SUSP 30 ML UDC PO PRN (18:09)
[2025-06-20] MEDS ORDERED: PNEUMOCOCCAL VACCINE (PCV20) 20-VAL CONJ-DIP CRM/PF 0.5 ML SYR IM ONE (19:10)
[2025-06-20] MEDS: PRAZOSIN HCL 1 MG CAP PO SCH (21:18)
[2025-06-20] MEDS: TOPIRAMATE 50 MG TAB PO SCH (21:19)
[2025-06-21 06:50] LABS: Hematocrit (blood only) 32.6 % (37.0-47.0); Hemoglobin 11.3 g/dL (12.0-16.0); Mean Corpuscular Hemoglobin 30.0 pg (25.0-34.0); Mean Corpuscular Volume 86.5 fL (80.0-100.0); Platelet Count 236 K/uL (130-400); RDW Standard Deviation 41.7 fL (36.4-46.3); Red Blood Count 3.77 M/uL (4.20-5.40); White Blood Count 6.92 K/ul (4.8-10.8)
[2025-06-21 07:35] LABS: Folate (Folic Acid),Ser orPlas 14.43 ng/ml (>5.38)
[2025-06-21 07:36] LABS: Vitamin B12 516.0 pg/ml (180-914)
[2025-06-21] MEDS: SERTRALINE HCL 100 MG TABLET PO SCH (07:36)
[2025-06-21 07:37] LABS: Anion Gap 7.0 (3-11); Blood Urea Nitrogen 9.0 mg/dl (6-23); Calcium 8.6 mg/dl (8.6-10.3); Carbon Dioxide 23.0 mmol/L (21-32); Chloride 102.0 mmol/L (98-107); Cholesterol 157.0 mg/dl (0-200); Creatinine Clr Calc Pharmacy 126.5 ml/min; Glucose 142.0 mg/dl (70-99(Fasting)); HDL Cholesterol 45.0 mg/dl; Iron 128.0 mcg/dl (35-150); Magnesium 2.1 mg/dl (1.7-2.4); Potassium 3.6 mmol/L (3.5-5.1); Sodium 132.0 mmol/L (136-145); Total Iron Binding Cap Calc 269.0 mcg/dl (250-450); Transferrin 192.0 mg/dl (200-360); Transferrin (FE) Percent Satur 48.0 % (15-50); Triglycerides 81.0 mg/dl (0-150)
[2025-06-21] MEDS: ASPIRIN 81 MG ECTAB PO SCH (07:37)
[2025-06-21 07:54] LABS: Ferritin 55.2 ng/ml (8-388)
--- NOTE | 2025-06-21 08:30 | Electrocardiogram Report ---
Test Reason : Blood Pressure : */* mmHG Vent. Rate : 83 BPM Atrial Rate : 83 BPM P-R Int : 184 ms QRS Dur : 94 ms QT Int : 394 ms P-R-T Axes : 52 5 61 degrees QTcB Int : 462 ms Normal sinus rhythm Normal ECG When compared with ECG of 21-Feb-2025 21:24, Criteria for Inferior infarct are no longer Present Nonspecific T wave abnormality no longer evident in Inferior leads Confirmed by Daniella Moreland (Brad) on 06/21/2025 8:30:15 AM Referred By: REFERRED SELF Confirmed By: Daniella Moreland
[2025-06-21 08:55] LABS: Hemoglobin A1C 6.6 % (4.5-5.6)
--- NOTE | 2025-06-21 12:25 | Hospitalist Progress Note ---
Date of Service June 21, 2025 Assessment & Plan (1) Stroke-like symptoms: (2) Acute CVA (cerebrovascular accident): Plan Patient is a 54y/o F with PMHx significant for diet-controlled DMII, chronic hyponatremia, asthma-COPD overlap syndrome, HTN, morbid obesity, GERD, fibrom yalgia, migraines, schizoaffective disorder, borderline personality disorder, panic disorder and chronic insomnia who presented to the ED via EMS for further eval of strokelike sx. Acute CVA Acute infarcts involving the R parietal, posterior temporal and posterior R insula seen on brain MRI C/o acute confusion, BLE weakness, LUE weakness and numbness, dysarthria, L faci al drooping, L facial numbness BLE weakness, confusion resolved Head CT: no acute intracranial abnormality identified Head/neck CTA: -demonstrates atherosclerosis without aneurysm, dissection, high-grade stenosis or arterial occlusion -aberrant course of the right subclavian artery Brain MRI: acute infarcts involving the right parietal, posterior temporal and posterior right insula Admitting provider D/w David neuro on-call who recommended Plavix load, DAPT; will see in consult Echo shows EF of 60 to 65% with mild concentric LVH. Grade 1 diastolic dysfunction Continue on aspirin and Plavix; Continue on Lipitor Will need Zio patch with primary care doctor after discharge Continue neurochecks PT OT REVENUE ANALYST eval #HTN Hold antiHTNs for now will resume gradually. #Type 2 diabetes mellitus-found to have A1c of 6.6%; will discuss lifestyle intervention and suggest metformin if she is agreeable #Chronic hypoNa likely SIADH Monitor #Schizoaffective disorder #Borderline personality disorder #Panic disorder Recent increase in both her Wellbutrin and Seroquel doses >> again feel c/t hypoNa F/w psychiatrist at [facility] Continue current psych reg for now #GERD Continue PPI #Chronic insomnia Will monitor off trazodone for now #Hypomagnesemia Repleted DVT Prophylaxis: heparin Code Status: FULL CODE Time spent evaluating patient, direct bedside care, chart review, placing orders, interpretation of diagnostic studies, discussion with consultants, patient, and family members, as well as other required patient management activities is 50 minutes Please note the above document was generated using voice recognition software. It may contain grammatical, syntax or spelling errors. Any formal questions or concerns about the content, text or information contained within the body of this dictation should be directly addressed to the provider for clarification Admission and Anticipated Discharge Date Admission Date: June 20, 2025 Subjective Patient seen and examined at bedside. She reports that the weakness that she presented with yesterday has improved. However, she has noted some weakness on her left hand at times. She also reports needing increased concentration while writing/typing. Telemetry overnight showed normal sinus rhythm; no A-fib Review of Systems Review of Systems: All systems reviewed & are unremarkable except as noted in Subjective Physical Exam Physical Exam: Constitutional: Alert oriented x 3; not in distress. Respiratory: normal respiratory effort, lungs clear to auscultation, no wheeze, rales, rhonchi. Normal insp/exp effort, no accessory muscle use Cardiovascular: RRR, no murmur, no edema Vessels: no JVD or carotid bruit Chest: normal inspection of chest Abdomen: normal bowel sounds, soft, nontender, no hepatosplenomegaly Musculoskeletal: no cyanosis or clubbing, extremities motor strength 5/5 Skin: no rashes, warm and dry normal turgor Neurologic: PERRL, EOMI, accommodation nl, no face palsy, no dysarthria CN's II- XI intact bilaterally and moves all extremities. No focal weakness noted today Psychiatric: A+Ox3, euthymic affect Results & Data Results & Data Vital Signs (Past 12 Hours) Vital Signs Temp Pulse Pulse Resp BP Pulse Ox O2 Del Method 06/21/25 11:28 36.4 C L 77 19 149/76 H 99 Room Air 06/21/25 08:49 36.4 C 72 19 128/61 97 Room Air 06/21/25 07:01 73 06/21/25 02:03 36.5 C 86 16 143/72 H 97 Room Air
--- NOTE | 2025-06-21 12:55 | Neurology Consultation ---
Date of Consultation June 21, 2025 Assessment & Plan (1) History of cerebrovascular accident (CVA) of parietal lobe: -Continue aspirin 81 mg daily indefinite -continue clopidogrel 75 mg daily for 21 days per chance protocol -continue atorvastatin 40 mg daily, LDL is 16 -PTOT recommends outpatient therapies - patient will need 1 month follow up in Neurology Clinic - recommend Holter monitor to rule out atrial fibrillation, patient has a family history in her mother - if Holter monitor does not show atrial fibrillation, would recommend outpatient transesophageal echocardiogram to rule out patent foramen ovale as TTE was non diagnostic. I discussed my recommendations with Dr. Darwin Haynes via [employer] Text. Thank you for this consult. Please call with questions. Telehealth Consultation Telehealth Information Telehealth Information: I performed this visit using a real-time telehealth connection between my location and the patients originating location ([facility]). After connecting through interactive tele-video, patient was identified by name and date of and/or wristband check.Patient (or authorized healthcare claim service representative) was informed that this was a telemedicine visit and it was being conducted confidentially over secure lines. My office door was closed and no one else was present in the room with me.Patient (or authorized healthcare claim service representative) provided consent to proceed with the visit, expressed an understanding of privacy and security of the telemedicine visit, and gave permission to have a hospital claim service representative in the room in order to assist with the visit and to conduct portions of the visit, as needed. I informed the patient (or authorized healthcare claim service representative) that I reviewed their record and presented the opportunity for them to ask any questions regarding the visit today. The patient agreed to participate. History of Present Illness Reason for Consultation: right parietal infarct Attending Physician: Darwin Haynes MD History of Present Illness Nan Garcia is A 54-year-old female with a past medical history of hypertension, diabetes mellitus type 2, asthma, GERD, fibromyalgia, schizoaffective disorder, borderline personality disorder, bipolar disorder, panic disorder, and insomnia who presented to [facility] Emergency Department on 06/20/2025 with a acute-onset left upper extremity weakness and numbness. CT head and CT angiogram head and neck were performed and unremarkable. MRI brain was performed and revealed an acute right parietal infarct. TTE was performed and showed LVEF 60-65%, normal left atrium, nondiagnostic for patent foramen ovale. The patient was naive to antiplatelets prior to arrival. She did not take cholesterol medication. NIHSS is 1 on my for left upper extremity numbness. The patient is independent with eating, bathing, walking, driving, and finances. Modified Sha scale score at baseline is 0. She is a never smoker, denies drugs or alcohol use. Her mother has a history of TIA and atrial fibrillation. Allergies Allergy/AdvReac Type Severity Reaction Status Date / Time aripiprazole Allergy Mild Unknown Verified 01/02/23 21:05 pregabalin Allergy Mild blurry Verified 01/02/23 21:05 vision Sulfa (Sulfonamide Allergy Mild RASH Verified 01/02/23 21:05 Antibiotics) azithromycin Allergy Unknown Unknown Verified 01/02/23 21:05 erythromycin base Allergy Unknown RXN Verified 01/02/23 21:05 UNKNOWN,BUT TOLD HER NOT TO TAKE ANYMORE Penicillins Allergy Unknown Unknown Verified 01/02/23 21:05 prednisone Allergy Unknown Unknown Verified 01/02/23 21:05 sulfamethoxazole Allergy Unknown UNKNOWN Verified 01/02/23 21:05 trimethoprim Allergy Unknown UNKNOWN Verified 01/02/23 21:05 aspirin AdvReac Mild upset Verified 01/02/23 21:05 stomach naproxen AdvReac Unknown Verified 01/02/23 21:05 varenicline [From Chantix] AdvReac Unknown Verified 01/02/23 21:05 Home Medications Medication Instructions Recorded Confirmed Type pantoprazole 40 mg tablet,delayed 40 mg PO BID #180 tabs 03/12/19 06/20/25 Rx release albuterol sulfate 90 mcg/actuation 2 puffs inhalation QID PRN 03/27/19 06/20/25 History aerosol inhaler Wheezing #1 g multivitamin 1 tab PO DAILY 03/27/19 06/20/25 History prazosin 2 mg capsule 2 mg PO HS 03/27/19 06/20/25 History bupropion HCl 100 mg tablet,12 hr 100 mg PO BID 01/02/23 06/20/25 History sustained-release cyclobenzaprine 10 mg tablet 10 mg PO TID 01/02/23 06/20/25 History duloxetine 60 mg capsule,delayed 60 mg PO QAM 01/02/23 06/20/25 History release losartan 50 mg tablet 50 mg PO QAM 01/02/23 06/20/25 History magnesium oxide 500 mg capsule 500 mg PO BID 01/02/23 06/20/25 History omega 0-eek-pgk-fish oil 1,200 mg 1 cap PO DAILY 01/02/23 06/20/25 History (144 mg-216 mg) capsule (Fish Oil) oxcarbazepine 600 mg tablet 600 mg PO TID 01/02/23 06/20/25 History sertraline 100 mg tablet 100 mg PO QAM 01/02/23 06/20/25 History trazodone 50 mg tablet 50 mg PO QPM 01/02/23 06/20/25 History amlodipine 5 mg tablet 5 mg PO HS 06/20/25 06/20/25 History bupropion HCl 75 mg tablet 75 mg PO DAILY 06/20/25 06/20/25 History clonazepam 0.5 mg tablet See Rx Instructions .Route 06/20/25 06/20/25 History .COMPLEX PRN Anxiety quetiapine 25 mg tablet 25 mg PO BID 06/20/25 06/20/25 History quetiapine 400 mg tablet 400 mg PO HS 06/20/25 06/20/25 History topiramate 50 mg tablet 50 mg PO BID 06/20/25 06/20/25 History Patient History Medical History (Updated 06/21/25 @ 13:00 by India Cortés MD) Yeast infection Foot fracture, left Surgical History H/O tubal ligation Status post hysteroscopic ablation of endometrium Family History Unknown Diabetes Other Hypertension Social History Smoking Status: Former smoker Tobacco Type: Cigarettes Age Started Using Tobacco: 14; packs per day: 1.5; Cigarettes Per Day: 30; Smoking End Date: 2018; Second Hand Exposure: No; Do You Dip or Chew Tobacco: No; Tobacco Cessation Education Requested by Patient: No Hx Alcohol Use: No Hx Substance Use: No Preferred Language: Indonesian Communication Ability: Effective Medical Transport Specialist Required: No Beliefs That Will Affect Care: None and Scientologist Scientologist Beliefs: Advent Current Living Situation: Spouse Other Information That Helps Us Care for You: No Feels Safe at Home: Yes Safety Concerns: Feels Safe At This Time Assistive Devices: Glasses Review of Systems ROS reviewed and negative except as above Physical Exam NIHSS 1 for left upper extremity weakness Results & Data Vital Signs (Past 12 Hours) Vital Signs Temp Pulse Pulse Resp BP Pulse Ox O2 Del Method 06/21/25 11:28 36.4 C L 77 19 149/76 H 99 Room Air 06/21/25 08:49 36.4 C 72 19 128/61 97 Room Air 06/21/25 07:01 73 06/21/25 02:03 36.5 C 86 16 143/72 H 97 Room Air Laboratory Results 06/21/25 06/20/25 06/20/25 06:13 22:50 18:33 WBC 6.92 RBC 3.77 L Hgb 11.3 L Hct 32.6 L MCV 86.5 MCH 30.0 MCHC 34.7 RDW Std Deviation 41.7 RDW Coeff of Tisha 13.2 Plt Count 236 MPV 10.5 PT INR APTT PTT Ratio Sodium 132 L Potassium 3.6 Chloride 102 Carbon Dioxide 23 Anion Gap 7 BUN 9 Creatinine 0.75 Est Cr Clr Drug Dosing 126.5 eGFR 95.73 BUN/Creatinine Ratio 12.0 Glucose 142 H POC Glucose 109 H Estimat Average Glucose 143 Hemoglobin A1c 6.6 H Osmolality Calcium 8.6 Phosphorus 3.6 Magnesium 2.1 Iron 128 TIBC 269 Transferrin 192 L Transferrin % Sat 48 Ferritin 55.2 Total Bilirubin AST ALT Alkaline Phosphatase Troponin I High Sens Total Protein Albumin Globulin Albumin/Globulin Ratio Triglycerides 81 Cholesterol 157 LDL Cholesterol, Calc 96 VLDL Cholesterol, Calc 16 HDL Cholesterol 45 Cholesterol/HDL Ratio 3.5 Vitamin B12 516 25-OH Vitamin D Total 29.6 L Folate 14.43 TSH Ur Random Sodium 90 06/20/25 06/20/25 12:31 10:31 WBC RBC Hgb Hct MCV MCH MCHC RDW Std Deviation RDW Coeff of Tisha Plt Count MPV PT 10.6 INR 1.0 APTT 31 PTT Ratio 1.1 Sodium 131 L Potassium 3.5 Chloride 105 Carbon Dioxide 21 Anion Gap 5 BUN 9 Creatinine 0.58 L Est Cr Clr Drug Dosing 165.8 eGFR 108.82 BUN/Creatinine Ratio 15.5 Glucose 130 H POC Glucose Estimat Average Glucose Hemoglobin A1c Osmolality 282 Calcium 7.8 L Phosphorus Magnesium 1.6 L Iron TIBC Transferrin Transferrin % Sat Ferritin Total Bilirubin 0.3 AST 13 ALT 13 Alkaline Phosphatase 102 Troponin I High Sens 3.1 Total Protein 5.8 L Albumin 3.1 L Globulin 2.7 Albumin/Globulin Ratio 1.1 Triglycerides Cholesterol LDL Cholesterol, Calc VLDL Cholesterol, Calc HDL Cholesterol Cholesterol/HDL Ratio Vitamin B12 25-OH Vitamin D Total Folate TSH 1.728 Ur Random Sodium Diagnostic Findings Brain MRI 06/20/25 14:01 Impression: Acute infarcts involving the right parietal, posterior temporal and posterior right insula. Electronically signed by Tony Mcgrath 06-20-2025 4:[address] angiogram head and neck Impression: CTA of the head and neck demonstrates atherosclerosis without aneurysm, dissection, high-grade stenosis or arterial occlusion. Aberrant course of the right subclavian artery. Medications Administered Home Medications Medication Instructions Recorded Confirmed Last Taken pantoprazole 40 mg tablet,delayed 40 mg PO BID #180 tabs 03/12/19 06/20/25 12/27/19 08:00 release albuterol sulfate 90 mcg/actuation 2 puffs inhalation QID PRN 03/27/19 06/20/25 04/25/19 aerosol inhaler Wheezing #1 g multivitamin 1 tab PO DAILY 03/27/19 06/20/25 12/27/19 prazosin 2 mg capsule 2 mg PO HS 03/27/19 06/20/25 12/26/19 bupropion HCl 100 mg tablet,12 hr 100 mg PO BID 01/02/23 06/20/25 Unknown sustained-release cyclobenzaprine 10 mg tablet 10 mg PO TID 01/02/23 06/20/25 Unknown duloxetine 60 mg capsule,delayed 60 mg PO QAM 01/02/23 06/20/25 Unknown release losartan 50 mg tablet 50 mg PO QAM 01/02/23 06/20/25 Unknown magnesium oxide 500 mg capsule 500 mg PO BID 01/02/23 06/20/25 Unknown omega 4-sxt-ujh-fish oil 1,200 mg 1 cap PO DAILY 01/02/23 06/20/25 Unknown (144 mg-216 mg) capsule (Fish Oil) oxcarbazepine 600 mg tablet 600 mg PO TID 01/02/23 06/20/25 Unknown sertraline 100 mg tablet 100 mg PO QAM 01/02/23 06/20/25 Unknown trazodone 50 mg tablet 50 mg PO QPM 01/02/23 06/20/25 Unknown amlodipine 5 mg tablet 5 mg PO HS 06/20/25 06/20/25 Unknown bupropion HCl 75 mg tablet 75 mg PO DAILY 06/20/25 06/20/25 Unknown clonazepam 0.5 mg tablet See Rx Instructions .Route 06/20/25 06/20/25 Unknown .COMPLEX PRN Anxiety quetiapine 25 mg tablet 25 mg PO BID 06/20/25 06/20/25 Unknown quetiapine 400 mg tablet 400 mg PO HS 06/20/25 06/20/25 Unknown topiramate 50 mg tablet 50 mg PO BID 06/20/25 06/20/25 Unknown Active Medications Generic Name Dose Route Start Last Admin Trade Name Gunner PRN Reason Stop Dose Admin Aspirin 81 mg 06/21/25 09:00 06/21/25 07:37 Aspirin 81 Mg Ectab PO 07/21/25 08:59 81 mg QAM MONICA Administration Atorvastatin Calcium 40 mg 06/20/25 14:45 06/21/25 07:37 Atorvastatin 40 Mg Tab PO 07/20/25 14:44 40 mg QAM MONICA Administration Bupropion HCl 100 mg 06/20/25 21:00 06/21/25 07:36 Bupropion Sr 100 Mg Tabcr PO 07/20/25 20:59 100 mg BID MONICA Administration Bupropion HCl 75 mg 06/21/25 12:00 06/21/25 11:38 Bupropion Hcl 75 Mg Tablet PO 07/20/25 15:59 75 mg TODAY@1200 MONICA Administration Duloxetine HCl 60 mg 06/21/25 09:00 06/21/25 07:37 Duloxetine Hcl 60 Mg Cap PO 07/21/25 08:59 60 mg QAM MONICA Administration Oxcarbazepine 600 mg 06/20/25 21:00 06/21/25 07:37 Oxcarbazepine 150 Mg Tablet PO 07/20/25 20:59 600 mg TID MONICA Administration Pantoprazole Sodium 40 mg 06/20/25 21:00 06/21/25 07:36 Pantoprazole 40 Mg Tab PO 07/20/25 20:59 40 mg BID MONICA Administration Prazosin HCl 2 mg 06/20/25 21:00 06/20/25 21:18 Prazosin Hcl 1 Mg Cap PO 07/20/25 20:59 2 mg HS MONICA Administration Quetiapine Fumarate 25 mg 06/20/25 21:00 06/21/25 07:36 Quetiapine Fumarate 25 Mg Tablet PO 07/20/25 20:59 25 mg BID MONICA Administration Quetiapine Fumarate 400 mg 06/20/25 21:00 06/20/25 21:19 Quetiapine Fumarate 200 Mg Tab PO 07/20/25 20:59 400 mg HS MONICA Administration Sertraline HCl 100 mg 06/21/25 09:00 06/21/25 07:36 Sertraline Hcl 100 Mg Tablet PO 07/21/25 08:59 100 mg QAM MONICA Administration Topiramate 50 mg 06/20/25 21:00 06/21/25 07:37 Topiramate 50 Mg Tab PO 07/20/25 20:59 50 mg BID MONICA Administration
[2025-06-21] MEDS: HEPARIN SOD 5,000 UNIT/0.5 ML VIAL SQ SCH (13:31)
--- NOTE | 2025-06-21 14:09 | Pharmacy Report ---
- Date of Service June 21, 2025 - Pharmacy CVA/TIA Medication Review Medications to Prevent Stroke handout has been added to the patients discharge packet. Antiplatelet(s) * aspirin 81 mg PO daily + clopidogrel 75 mg PO daily x 21 days, then aspirin monotherapy Cholesterol * High intensity statin: atorvastatin 40 mg daily DVT Prophylaxis * Heparin SQ Therapeutic Anticoagulation * No history of Afib/Aflutter noted Type 2 Diabetes * Patient has T2DM, but per Dr. Haynes, a diabetes medication with proven CVD benefit will be deferred to their outpatient provider due to familiarity with risks/benefits of such therapies. "Medications to prevent stroke" handout has already been added to the patient's discharge packet, which instructs the patient to follow up with their outpatient provider to evaluate which diabetes medication with proven CVD benefit is best for them
[2025-06-21 19:40] VITALS: RESP 18
[2025-06-22 07:54] VITALS: BP 156/76; PULSE 78; TEMP 97.9; O2SAT 97
--- NOTE | 2025-06-22 09:55 | Discharge Summary ---
Date of Service June 22, 2025 Admission HPI Per Admitting Provider Patient is a 54y/o F with PMHx significant for diet-controlled DMII, chronic hyponatremia, asthma-COPD overlap syndrome, HTN, morbid obesity, GERD, fibromyalgia, migraines, schizoaffective disorder, borderline personality disorder, panic disorder and chronic insomnia who presented to the ED via EMS for further eval of strokelike sx. History obtained from the patient, family at bedside, discussion with ED provider and associated chart review. LKW around 3AM this morning. Acute onset of confusion, dysarthria, BLE weakness, LUE weakness and numbness, L-sided facial numbness and L facial drooping around 8:30-9AM this morning upon waking. Reported witnesses to this event including patient's , other family members. Attempted to get up from couch and fell to the floor as her legs "gave out." Was able to crawl to kitchen chair and pull herself up with her R side. States LUE felt extremely weak and numb. Notes she was unable to move her LUE much at all. Family members noted she was slurring her speech, talking in context that was difficult to understand. Some appreciated L facial drooping as well. EMS was then called. Confusion, BLE weakness resolved in ED. Also had a mild [employer] which has resolved. Still with LUE weakness and numbness, mostly unchanged. Also with slight L facial drooping, mild dysarthria, L-sided facial numbness. NIHSS 7 in ED. Was not called stroke alert. Was not seen by telestroke neurology. Loaded with 324mg ASA in ED. Head CT with no acute abnormalities. CTA of the head and neck demonstrated atherosclerosis without aneurysm, dissection, high-grade stenosis or arterial occlusion. Patient is being admitted for full stroke eval. Admission Exam Per Admitting Provider General: Middle-aged F, NAD, sitting up in bed, A&Ox3 HEENT: Normocephalic, atraumatic, + L facial numbness, + slight L facial drooping Respiratory: Normal respiratory effort, CTAB Cardiovascular: RRR, normal peripheral pulses, no BLE edema Abdomen/GI: Normal bowel sounds, soft, nontender to palpation in all quadrants Extremities/Musculoskeletal: + RUE pronator drift, + RUE numbness, 4/5 RUE strength, 5/5 LUE strength, intact BLE strength Neurologic: + mild dysarthria, +LUE ataxia Principal Diagnosis Acute CVA Acute infarcts involving the R parietal, posterior temporal and posterior R insula seen on brain MRI Discharge Exam Constitutional: Alert oriented x 3; not in distress. Respiratory: normal respiratory effort, lungs clear to auscultation, no wheeze, rales, rhonchi. Normal insp/exp effort, no accessory muscle use Cardiovascular: RRR, no murmur, no edema Vessels: no JVD or carotid bruit Chest: normal inspection of chest Abdomen: normal bowel sounds, soft, nontender, no hepatosplenomegaly Musculoskeletal: no cyanosis or clubbing, extremities motor strength 5/5 Skin: no rashes, warm and dry normal turgor Neurologic: PERRL, EOMI, accommodation nl, no face palsy, no dysarthria CN's II- XI intact bilaterally and moves all extremities. Psychiatric: A+Ox3, euthymic affect Discharge Data Allergies Allergy/AdvReac Type Severity Reaction Status Date / Time aripiprazole Allergy Mild Unknown Verified 01/02/23 21:05 pregabalin Allergy Mild blurry Verified 01/02/23 21:05 vision Sulfa (Sulfonamide Allergy Mild RASH Verified 01/02/23 21:05 Antibiotics) azithromycin Allergy Unknown Unknown Verified 01/02/23 21:05 erythromycin base Allergy Unknown RXN Verified 01/02/23 21:05 UNKNOWN,BUT TOLD HER NOT TO TAKE ANYMORE Penicillins Allergy Unknown Unknown Verified 01/02/23 21:05 prednisone Allergy Unknown Unknown Verified 01/02/23 21:05 sulfamethoxazole Allergy Unknown UNKNOWN Verified 01/02/23 21:05 trimethoprim Allergy Unknown UNKNOWN Verified 01/02/23 21:05 aspirin AdvReac Mild upset Verified 01/02/23 21:05 stomach naproxen AdvReac Unknown Verified 01/02/23 21:05 varenicline [From Chantix] AdvReac Unknown Verified 01/02/23 21:05 Consultations 06/20/25 13:32 ED Decision to Admit Stat 06/20/25 22:00 Consult Neurology Routine Ordered Studies 06/20/25 12:14 CT head/brain wo con Stat 06/20/25 12:16 CT angio head w con Stat CT angio neck with con Stat 06/20/25 14:01 MRI Brain [MR brain wo/w con] Urgent Hospital Course (1) Stroke-like symptoms: (2) Acute CVA (cerebrovascular accident): Plan Patient is a 54y/o F with PMHx significant for diet-controlled DMII, chronic hyponatremia, asthma-COPD overlap syndrome, HTN, morbid obesity, GERD, fibromyalgia, migraines, schizoaffective disorder, borderline personality disorder, panic disorder and chronic insomnia who presented to the ED via EMS for further eval of strokelike sx. Acute CVA Acute infarcts involving the R parietal, posterior temporal and posterior R insula seen on brain MRI Presented with acute confusion, BLE weakness, LUE weakness and numbness, dysarthria, L facial drooping, L facial numbness BLE weakness, confusion resolved in ED Head CT: no acute intracranial abnormality identified Head/neck CTA: -demonstrates atherosclerosis without aneurysm, dissection, high-grade stenosis or arterial occlusion -aberrant course of the right subclavian artery Brain MRI: acute infarcts involving the right parietal, posterior temporal and posterior right insula Echo shows EF of 60 to 65% with mild concentric LVH. Grade 1 diastolic dysfunction Patient was admitted to telemetry floor, Neurology was consulted for comanagement. Patient was started on aspirin and Plavix as per recommendation( Plavix for total of 21 days). She was also started on Lipitor 40 mg daily. Neurology recommended Holter monitor to rule out A-fib as outpatient. They also recommend outpatient transesophageal echocardiogram to rule out patent foramina ovale as TTE was nondiagnostic if Holter monitor does not show A-fib. Patient did not have any telemetry events during the hospitalization. Patient was discharged home with follow-up with her primary care doctor to set up Holter monitor and possible NIRAJ as outpatient. She was found to have type 2 diabetes mellitus with HbA1c of 6.6%; was discharged on metformin 500 mg twice daily. Patient was given a prescription for outpatient physical therapy and Occupational Therapy. Please note the above document was generated using voice recognition software. It may contain grammatical, syntax or spelling errors. Any formal questions or concerns about the content, text or information contained within the body of this dictation should be directly addressed to the provider for clarification Total Time Total Time Spent Total Time Spent (In Minutes): 45 Total Time Includes: Examination of the Patient, Discharge Planning, Medication Reconciliation, Communication With Other Providers and Other Discharge Plan Discharge Items Patient Disposition: Home - Self-Care Reason For Visit: STROKE R/O Condition on Discharge: Fair Activity: Resume your previous activity Non-emergency contact: Primary Care Provider Call non-emergency contact if: you have any medication questions and your symptoms worsen Follow-up/Referrals: Jim Chappell MD [Primary Care Provider] - 06/28/25 3:20 pm (Date & Time 06/28/2025 3:20 PM Provider: Jim Chappell MD [facility] ) Lluvia Sanches PA-C [Physician Clearance Representative] - 07/20/25 12:30 pm (Date & Time 07/20/2025 12:30 PM Provider: Lluvia Sanches PA-C Neurology [facility] ) Diet: Regular Addtl Attending Provider Instructions: You were admitted to the hospital due to stroke. You were evaluated by neurolo gy during the hospitalization. You have been prescribed following medications; Take aspirin 81 mg once a day; you need to continue this lifelong Take Plavix 75 mg once a day for 20 days Take Lipitor 40 mg once a day. You need to take this lifelong You are also found to have diabetes. You have been prescribed metformin 500 mg to be taken twice a day after meals. Please make lifestyle changes. Avoid carbohydrates and focus on protein and fruits/vegetables. Please follow-up with your primary care doctor as you have been scheduled. You will need Holter monitor to look for atrial fibrillation. If it is negative; you will need transesophageal echocardiogram. Please coordinate with your primary care doctor regarding it. Pending Studies at Discharge: No Stand-Alone Forms: [facility] Exavio, Smoking Cessation, Medications to Prevent Stroke Medications and DC Order Prescriptions: New atorvastatin 40 mg Tablet 40 mg PO QAM Qty: 30 0RF aspirin 81 mg Tablet,Delayed Release (Dr/Ec) 81 mg PO QAM Qty: 30 0RF clopidogrel [Plavix] 75 mg tablet 75 mg PO DAILY Qty: 20 0RF metformin 500 mg tablet extended release 24 hr 500 mg PO BID 30 Days Qty: 60 0RF Continued pantoprazole 40 mg tablet,delayed release (DR/EC) 40 mg PO BID Qty: 180 3RF multivitamin tablet 1 tab PO DAILY albuterol sulfate 90 mcg/actuation HFA aerosol inhaler 2 puffs inhalation QID PRN (Reason: Wheezing) Qty: 1 prazosin 2 mg capsule 2 mg PO HS cyclobenzaprine 10 mg tablet 10 mg PO TID losartan 50 mg tablet 50 mg PO QAM duloxetine 60 mg capsule,delayed release(DR/EC) 60 mg PO QAM trazodone 50 mg tablet 50 mg PO QPM sertraline 100 mg tablet 100 mg PO QAM bupropion HCl 100 mg tablet sustained-release 12 hr 100 mg PO BID Rx Instructions: take 1 tablet in the morning and at noon oxcarbazepine 600 mg tablet 600 mg PO TID magnesium oxide 500 mg Capsule 500 mg PO BID omega [id number] oil [Fish Oil] 1,200 (144-216) mg Capsule 1 cap PO DAILY quetiapine 25 mg tablet 25 mg PO BID clonazepam 0.5 mg tablet See Rx Instructions .ROUTE .COMPLEX PRN (Reason: Anxiety) Rx Instructions: Take 1/2 tablet by mouth in the morning and 1 at night as needed for anxiety. amlodipine 5 mg tablet 5 mg PO HS bupropion HCl 75 mg tablet 75 mg PO DAILY Rx Instructions: Daily at noon topiramate 50 mg tablet 50 mg PO BID quetiapine 400 mg tablet 400 mg PO HS Discharge Orders: Discharge Order (Routine); Ordered 06/22/25 Ordered By: Darwin Avery/Other Patient Handouts: Managing Type 2 Diabetes Admission Data Admit Date/Time: 06/20/25 14:27 Attending Provider: Darwin Haynes Admit Provider: Shanel Buchanan Primary Care Provider: Jim Chappell Other Providers: Shanel Buchanan; Jim Jean
[2025-06-22] MEDS: CLOPIDOGREL BISULFATE 75 MG TAB PO SCH (10:56)
[2025-06-22] MEDS: STROKE PATIENT DISCHARGE STA (10:57)
== END 2025-06-22 12:48 | disposition home or self-care (01) | DRG 65 ==
LOC: ED 12:02 → 2N 14:27 → SUATTDRO 14:27 → 2N 17:26